=== PATIENT | female | born 1975 | race Caucasian/White ===

== ENCOUNTER 2021-10-18 16:46 | Emergency (ER) | payer OTHER, SELFPAY ==
[2021-10-18 17:00] VITALS: BP 112/85; PULSE 84; RESP 18; TEMP 36.7; O2SAT 97
--- NOTE | 2021-10-18 17:22 | ED.SKABFB ---
HPI - Skin/Abscess/Foreign Bdy General Chief complaint: Skin/Abscess/Foreign Body Stated complaint: Blister on buttox Time Seen by Provider: 10/18/21 17:20 Source: patient, RN notes reviewed and old records reviewed Mode of arrival: ambulatory Limitations: no limitations History of Present Illness HPI narrative: 45 year old female who presents to [facility] care with complaints of boil or abscess to the right buttock for the past month. Patient states that she got a new adjustable bed and she got this area to her tight buttocks which was red initially then it proceeded to look like a blister. Patient now has area to her right buttock which is 4cm X 2.5cm oval with approximately 0.5 to 1cm depth with eschar looking tissue to most of wound with area at bottom of wound red with serosanguineous and yellowish drainage noted. Patient admits to picking on wound, has been covering wound with dry 4X4 gauze after cleansing with soap and water. Patient denies any known fevers chills or sweats.Patient states that she moved to [facility] from [facility] and does not have PCP in area. MD complaint: abscess/boil (right buttock) and other (now has progressed to 4cmX2.5cm wound of right buttock) Onset (ago): month(s) (1) Related Data Home Medications Medication Instructions Recorded Confirmed atorvastatin 10/18/21 ezetimibe mg 10/18/21 gabapentin 10/18/21 hydrochlorothiazide 10/18/21 hydroxychloroquine PO 10/18/21 levothyroxine 10/18/21 metoprolol succinate PO 10/18/21 quetiapine 10/18/21 quetiapine 10/18/21 tofacitinib [Xeljanz XR] mg PO 10/18/21 10/18/21 Allergies Allergy/AdvReac Type Severity Reaction Status Date / Time cephalexin Allergy Mild Other Verified 10/18/21 16:59 tramadol Allergy Mild Other Verified 10/18/21 16:59 Review of Systems Review of Systems: CONSTITUTIONAL: Denies fever, chills, or sweats. EYES: Denies visual changes, redness, or discharge. ENT: Denies rhinorrhea, congestion, sore throat, or otalgia. CARDIOVASCULAR: Denies chest pain, palpitations, or edema. RESPIRATORY: Denies cough or dyspnea. GASTROINTESTINAL: Denies abdominal pain, nausea, vomiting, or diarrhea. GENITOURINARY: Denies dysuria or hematuria. SKIN: Denies rash or itching.positive for wound to right buttock for past month with increase in size depth and is painful. MUSCULOSKELETAL: Denies back pain, joint pain, or myalgia. NEUROLOGIC: Denies headache, numbness, or weakness. PSYCHIATRIC: Denies anxiety or depression. All systems reviewed & are unremarkable except as noted in HPI and below PMFSH Past Medical History Medical History (Updated 10/20/21 @ 17:27 by Merissa Viveros NP) Arthritis Hypertension Hypothyroidism Neuropathy Open right femoral fracture ORIF Pilonidal cyst with abscess Rheumatoid arthritis Surgical History Surgical History (Updated 10/20/21 @ 17:18 by Merissa Viveros NP) H/O dilation and curettage H/O splenectomy History of hysterectomy Hx of cholecystectomy Previous section Family History Family History (Updated 10/20/21 @ 17:15 by Merissa Viveros NP) Father Hypertension Sibling Hypertension Heart disease Grandparent Cerebrovascular accident Arthritis Alzheimers disease Other Carcinoma of colon Social History Social History (Updated 10/20/21 @ 17:16 by Merissa Viveros NP) Smoking status: Former smoker Tobacco type: cigarettes Alcohol intake: current Alcohol use details: rare social Substance use: never Living arrangements: with family Gender identity (if verbalized by the patient): Female Comments At time of signature, agree with nursing past medical, surgical, social and family history. There is no relevant family history pertinent to the presenting complaint Exam Narrative: GENERAL: Well-appearing, well-nourished, obese and in no acute distress. HEAD: Normocephalic, atraumatic. EYES: PERRLA and EOMI. ENT: Nares clear, no rhinorrhe
== END 2021-10-18 18:30 | disposition home or self-care (01) ==
PROVIDERS: Emergency Provider Registered Nurse
DX: S31.819A Unspecified open wound of right buttock, initial encounter (principal); X58.XXXA Exposure to other specified factors, initial encounter; M19.90 Unspecified osteoarthritis, unspecified site; I10 Essential (primary) hypertension; E03.9 Hypothyroidism, unspecified; G62.9 Polyneuropathy, unspecified; M06.9 Rheumatoid arthritis, unspecified; Z87.891 Personal history of nicotine dependence
CPT/HCPCS: 99213; G0463

== ENCOUNTER 2021-11-15 08:12 | Outpatient (CLI) | payer OTHER, SELFPAY ==
--- NOTE | ~2021-11-15 | US_ITS ---
EXAMINATION: US right upper quadrant DATE: 11/15/2021 08:34 INDICATION: Liver nodule TECHNIQUE: Multiple grayscale and Doppler ultrasound images of the abdomen were obtained. COMPARISON: None available FINDINGS: Bowel gas obscures visualization of the pancreas. The visualized portions of the pancreas a re unremarkable. There is a questionable 1.5 x 1.2 cm hyperechoic area of the left hepatic lobe howev er the area is difficult to reproduce on subsequent images. Evaluation is somewhat limited by the pat ient's body habitus. No surface nodularity. Normal hepatopetal flow in the main portal vein. The gal lbladder is surgically absent. The normal postcholecystectomy common bile duct measures 8 mm. IMPRESSION: 1. Questionable 1.5 cm liver lesion, difficult to reproduce. Consider further evaluation by CT or MRI without and with contrast. Reviewed, dictated and finalized at location A. ER MACHINE HAND IMPRESSION: 1. Questionable 1.5 cm liver lesion, difficult to reproduce. Consider further e valuation by CT or MRI without and with contrast.
== END 2021-11-15 08:13 | disposition home or self-care (01) ==
LOC: ANHIMG 08:15
PROVIDERS: Visit Provider Pediatrics Pediatric Rheumatology
DX: K76.89 Other specified diseases of liver (principal)
CPT/HCPCS: 76705

== ENCOUNTER 2022-02-03 07:34 | Outpatient (RCR) | payer OTHER, SELFPAY ==
[2021-11-11 12:09] VITALS: BMI 53.2
--- NOTE | 2021-11-11 15:27 | P.PNWOUND_ITS ---
Wound Care Note Date/Time: 11/11/21 15:27 History: Patient presented to my office 2 weeks ago with nonhealing ulcer on her right buttocks. Wound was debrided in the office and she has been applying silver gel daily since then. She now follow-up with the wound clinic for further treatment. Patient states that wound has continued to have a lot of foul-smelling drainage. She is having to change the bandage multiple times a day. She does still have a lot of tenderness in this region as well. Wound approximation: No Wound width: 2.8cm Wound length: 4cm Wound depth: 3cm Drainage: Serosanguineous Surrounding tissue appearance: healthy Percentage granulation tissue: 10% Assessment and Plan Assessment and plan (1) Wound of right buttock: Qualifiers: Encounter type: initial encounter Qualified Code(s): S31.819A - Unspecified open wound of right buttock, initial encounter Code(s): S31.819A - Unspecified open wound of right buttock, initial encounter Status: Acute Assessment and Plan: * Patient was given instructions on applying Santyl to wound bed daily. Will make arrangements for wound products. Will have patient follow-up in wound clinic in 4 weeks to reassess. (2) BMI 50.0-59.9, adult: Code(s): Z68.43 - Body mass index [BMI] 50.0-59.9, adult Status: Acute Review of Systems Review of Systems: All systems reviewed & are unremarkable except as noted in HPI and below Exam Skin: Other: right buttock wound remains open with a significant amount of exudate and necrotic subcutaneous fat within the wound bed. Surrounding skin appears healthy and viable. No fluctuance her purulence drainage.
--- NOTE | 2022-01-20 11:09 | PCWOUND ---
WOCN NOTE patient did not show up for scheduled appointment, no call was made to cancel or reschedule. Dr. Jerez aware of no-show.
--- NOTE | 2022-01-24 15:15 | PM.PNGS ---
Progress Note: A&P Assessment and Plan (1) Wound of right buttock: Qualifiers: Encounter type: initial encounter Qualified Code(s): S31.819A - Unspecified open wound of right buttock, initial encounter Code(s): S31.819A - Unspecified open wound of right buttock, initial encounter Status: Acute Assessment and Plan: Will continue daily dressing changes with Silver gel and 1/2 NuGauze. Wound should continue to improve with careful attentive wound care. (2) BMI 50.0-59.9, adult: Code(s): Z68.43 - Body mass index [BMI] 50.0-59.9, adult Status: Acute (3) Hypertension: Qualifiers: Hypertension type: primary hypertension Qualified Code(s): I10 - Essential (primary) hypertension Code(s): I10 - Essential (primary) hypertension Status: Acute (4) DM2 (diabetes mellitus, type 2): Qualifiers: Diabetes mellitus senior care insulin use: without medical terminologist use Diabetes mellitus complication status: with skin complications Diabetes mellitus complication detail: with other skin ulcer Qualified Code(s): E11.622 - Type 2 diabetes mellitus with other skin ulcer Code(s): E11.9 - Type 2 diabetes mellitus without complications Status: Acute Assessment and Plan: Glucose control will help with wound healing. Subjective Subjective Date/Time Seen: 12/16/2021 at 10:30 AM Interval history: Patient reports continued drainage from buttock wound. She has been applying daily dressings. Still has some pain in the area. She was also recently diagnosed with type 2 DM and has been treating this with dietary modifications. Review of Systems Review of Systems: All systems reviewed & are unremarkable except as noted in HPI and below Exam Skin: Other: 2.5 x 3.3 cm right buttock wound, about 7.5cm deep. Healthy granulation tissue with scant serosanguinous drainage. Objective Data Meds/Results Medications: Active Medications Generic Name Dose Route Start Last Admin Trade Name Freq PRN Reason Stop Dose Admin Silver Nitrate 1 applic 12/16/21 11:05 Silvergel (Elta) 45 Ml TOPICAL 03/16/22 23:55 PRN PRN Wound Care
--- NOTE | 2022-01-27 15:45 | WPDWOUNDNOTE ---
Wound Care Note Date/Time: 01/27/22 15:45 History: This is a 46-year-old woman who presented with a nonhealing wound on her right buttock. She underwent debridement of the necrotic surface in my office on 10/29/2021. She has been seeing Wound Care for follow-up since then. She has a history of tobacco use and was recently also diagnosed with diabetes. She also has a history of splenectomy and states that she gets other infections easily due to this. Wound history: Patient has been performing daily packing changes with plain Nu Gauze and silver gel. Due to the location of her wound, it is very difficult for her to adequately pack the wound. She has been unable to get other family or close friends to help with the wound care. Wound approximation: No Wound width: 1 cm Wound length: 0.4 cm Wound depth: 15 cm Drainage: Blood-tinged yellow Surrounding tissue appearance: Healthy Dressings: Quarter-inch Nu Gauze packing with silver gel Assessment and Plan Assessment and plan (1) Wound of right buttock: Qualifiers: Encounter type: initial encounter Qualified Code(s): S31.819A - Unspecified open wound of right buttock, initial encounter Code(s): S31.819A - Unspecified open wound of right buttock, initial encounter Status: Acute Assessment and Plan: Continue daily packing changes. I talked to patient about other ways she can have help to pack the wound adequately, but she does not feel that any family or friends would be able to help. The wound appears nearly closed at the surface, but there is still some drainage coming from deeper within the wound and the wound still does appear to track very deeply. Will have patient come to the Wound Care Clinic weekly now to continue closely observing this area and helping with packing changes. We will also consider culturing the wound drainage next week if there is any significant drainage remaining. If the wound closes completely at the surface but still continues with drainage buildup, she may need re-incision of the area and might even need to consider wound VAC placement or other treatment to help this close completely. Will follow-up with patient in wound clinic in 2-3 weeks. (2) DM2 (diabetes mellitus, type 2): Qualifiers: Diabetes mellitus continuous churn buttermaker insulin use: without halfway use Diabetes mellitus complication status: with skin complications Diabetes mellitus complication detail: with other skin ulcer Qualified Code(s): E11.622 - Type 2 diabetes mellitus with other skin ulcer Code(s): E11.9 - Type 2 diabetes mellitus without complications Status: Acute (3) BMI 50.0-59.9, adult: Code(s): Z68.43 - Body mass index [BMI] 50.0-59.9, adult Status: Acute (4) Hypertension: Qualifiers: Hypertension type: primary hypertension Qualified Code(s): I10 - Essential (primary) hypertension Code(s): I10 - Essential (primary) hypertension Status: Acute Review of Systems Review of Systems: All systems reviewed & are unremarkable except as noted in HPI and below Exam Skin: Other: Wound appears to have healthy granulation tissue and skin appears healing well. Most of the drainage appears like liquified fat. There is no foul smell to the wound.
== END 2022-02-09 23:59 | disposition home or self-care (01) ==
LOC: ANHWOC 07:34
PROVIDERS: Visit Provider Surgery
DX: S31.819D Unspecified open wound of right buttock, subsequent encounter (principal)
CPT/HCPCS: 87070; 87147; 87186; 87205; 99212; G0463

== ENCOUNTER 2022-02-14 09:29 | Outpatient (RCR) | payer OTHER, SELFPAY ==
[2022-02-10 00:04] VITALS: BMI 53.2
--- NOTE | 2022-02-20 10:53 | PCWOUND ---
WOCN NOTE patient called to cancel her appointment due to her being called into work. Patient states the wound is scab covered, no drainage noted and that the pressure she had felt at the top of her buttocks is gone. Patient to let me know what her next days off are to be. Informed Nguyen Root MA for Dr. Vazquez of cancellation and that wound is closed. Per Dr ANTOINE states no follow up needs to be scheduled at this time, patient to contact the wound center for appointment is wound reopens.
== END 2022-05-05 08:28 | disposition home or self-care (01) ==
LOC: ANHWOC 09:29
PROVIDERS: Visit Provider Surgery
DX: S31.819D Unspecified open wound of right buttock, subsequent encounter (principal)
CPT/HCPCS: 99212; A9270; G0463

== ENCOUNTER 2022-03-23 14:57 | Emergency (ER) | payer OTHER, SELFPAY ==
--- NOTE | 2022-03-23 14:58 | ED.DENTAL ---
HPI - Dental/Oral General Chief complaint: Dental/Oral Stated complaint: tooth pain Time Seen by Provider: 03/23/22 14:57 Source: patient Mode of arrival: ambulatory Limitations: no limitations History of Present Illness HPI Narrative: Ms. Alexander is a 46-year-old female patient presenting to the clinic today with complaints of dental pain x 1 day. She reports he has a broken tooth #18 that is very painful with redness and swelling and has a knot to her left lower jaw. Pain and swelling is radiating up into her left ear and into her neck. Related Data Home Medications Medication Instructions Recorded Confirmed atorvastatin 10/18/21 10/29/21 ezetimibe mg 10/18/21 10/29/21 gabapentin 10/18/21 10/29/21 hydrochlorothiazide 10/18/21 10/29/21 hydroxychloroquine PO 10/18/21 10/29/21 levothyroxine 10/18/21 10/29/21 metoprolol succinate PO 10/18/21 10/29/21 quetiapine 10/18/21 10/29/21 quetiapine 10/18/21 10/29/21 aspirin 81 mg capsule 81 mg PO DAILY 10/29/21 10/29/21 Allergies Allergy/AdvReac Type Severity Reaction Status Date / Time cephalexin Allergy Mild Other Verified 11/11/21 12:30 tramadol Allergy Mild Other Verified 11/11/21 12:30 Review of Systems Review of Systems: Pertinent positives per HPI. Patient denies any fever, chills, rash, headache, visual changes, dizziness, cough, runny nose, sore throat, shortness of breath, chest pain, palpitations, nausea, vomiting, diarrhea, constipation, abdominal pain, or any urinary issues. [facility] Past Medical History Medical History Arthritis Hypertension Hypothyroidism Neuropathy Open right femoral fracture ORIF Pilonidal cyst with abscess Rheumatoid arthritis Surgical History Surgical History H/O dilation and curettage H/O splenectomy History of hysterectomy Hx of cholecystectomy Previous section Family History Family History Father Hypertension Sibling Hypertension Heart disease Grandparent Cerebrovascular accident Arthritis Alzheimers disease Other Carcinoma of colon Social History Social History Smoking status: Former smoker Tobacco type: cigarettes Alcohol intake: current Alcohol use details: rare social Substance use: never Gender identity (if verbalized by the patient): Female Comments At the time of my signature, I reviewed and agree with the nursing past medical, surgical, social, and family history. There is no relevant family history pertinent to the patient complaint. Exam Narrative: General: Well-developed, well nourished, in no apparent distress Head: Normocephalic, atraumatic Eyes: Pupils equally round and reactive to light bilaterally, EOM intact, sclera and conjunctive clear, no discharge, lids normal Ears: TMs intact and clear, ear canals clear, no drainage, grossly hearing normal. Nose: Nares patent, no discharge, no inflammation, no sinus tenderness. Mouth: Oropharynx without lesions or masses, poor dentition, MMM. #18 broken with redness and erythema to the gums, palpable possible abscess without fluctuance to the left jaw Neck: Supple, trachea midline, no enlargement of anterior or posterior cervical nodes, no thyroid masses or goiter palpable. Cardio: Regular rate and rhythm, s1 and s2 normal, no murmur appreciated. Resp: Clear to auscultation bilaterally anteriorly and posteriorly, no rhonchi, rales, wheezing or rubs Course Course Emergency Course: Portions of this record may have been created with voice recognition software. Level of Care: [facility] Visit Vital Signs Vital signs: Vital signs reviewed MDM - Dental/Oral MDM Narrative Medical decision making narrative: At the time of visit patient is resting comfortably on the exam ta
[2022-03-23 15:05] VITALS: BP 113/63; PULSE 82; RESP 16; TEMP 36.4; O2SAT 99
[2022-03-23 15:06] VITALS: BP 113/63; PULSE 82; RESP 16; TEMP 36.4; O2SAT 99
== END 2022-03-23 15:16 | disposition home or self-care (01) ==
PROVIDERS: Emergency Provider Nurse Practitioner Family
DX: K04.7 Periapical abscess without sinus (principal); Z87.891 Personal history of nicotine dependence; M19.90 Unspecified osteoarthritis, unspecified site; I10 Essential (primary) hypertension; E03.9 Hypothyroidism, unspecified; M06.9 Rheumatoid arthritis, unspecified; G62.9 Polyneuropathy, unspecified
CPT/HCPCS: 99213; G0463

== ENCOUNTER 2022-07-05 14:30 | Emergency (ER) | payer OTHER, SELFPAY ==
[2022-07-05 14:39] VITALS: BP 138/87; PULSE 91; RESP 20; TEMP 37.2; O2SAT 94
--- NOTE | 2022-07-05 15:45 | ED.URI ---
HPI - URI/Sore Throat General Chief Complaint: Upper Respiratory Infection Stated Complaint: COVID Time Seen by Provider: 07/05/22 15:34 Source: patient Mode of arrival: ambulatory Limitations: no limitations History of Present Illness HPI Narrative: Patient presents today complaining of cough and congestion for the past couple of days. She was exposed last week to COVID-19 for 3 days. She tested positive today and comes into [facility] today requesting Paxlovid prescription. Patient has history of lupus and is asplenic. She has been vaccinated and boosted against COVID-19. Denies history of asthma or COPD. She smokes 1 pack/day.Denies chest pain or shortness of breath currently. Related Data Home Medications Medication Instructions Recorded Confirmed atorvastatin 40 mg tablet 40 mg PO DAILY 10/18/21 07/05/22 ezetimibe 10 mg tablet 10 mg PO DAILY 10/18/21 07/05/22 gabapentin 300 mg capsule 300 mg PO DIRECTED 10/18/21 07/05/22 hydrochlorothiazide 50 mg tablet 50 mg PO DIRECTED 10/18/21 07/05/22 hydroxychloroquine 200 mg tablet 200 mg PO DIRECTED 10/18/21 07/05/22 levothyroxine 300 mcg tablet 300 mcg PO DAILY 10/18/21 07/05/22 metoprolol succinate 50 mg 50 mg PO DAILY 10/18/21 07/05/22 tablet,extended release 24 hr quetiapine 100 mg tablet 100 mg PO DAILY 10/18/21 07/05/22 quetiapine 400 mg tablet 400 mg PO DAILY 10/18/21 07/05/22 belimumab 200 mg/mL subcutaneous 200 mg subcut DIRECTED 07/05/22 07/05/22 auto-injector (Benlysta) diclofenac sodium 75 mg 75 mg PO DIRECTED 07/05/22 07/05/22 tablet,delayed release Allergies Allergy/AdvReac Type Severity Reaction Status Date / Time cephalexin Allergy Mild Other Verified 11/11/21 12:30 tramadol Allergy Mild Other Verified 11/11/21 12:30 Review of Systems Review of Systems: CONSTITUTIONAL: Denies body aches, fever, chills, or sweats. EYES: Denies visual changes, redness, or discharge. ENT: Denies rhinorrhea, sore throat, or otalgia.+Congestion CARDIOVASCULAR: Denies chest pain, palpitations, or edema. RESPIRATORY: Denies dyspnea.+Cough GASTROINTESTINAL: Denies abdominal pain, nausea, vomiting, or diarrhea. GENITOURINARY: Denies dysuria or hematuria. SKIN: Denies rash, itching, or wounds. MUSCULOSKELETAL: Denies back pain, joint pain, or myalgia. NEUROLOGIC: Denies headache, numbness, tingling, or weakness. PSYCH: Denies depression or anxiety. [facility] Past Medical History Medical History Arthritis Hypertension Hypothyroidism Neuropathy Open right femoral fracture ORIF Pilonidal cyst with abscess Rheumatoid arthritis Surgical History Surgical History H/O dilation and curettage H/O splenectomy History of hysterectomy Hx of cholecystectomy Previous section Family History Family History Father Hypertension Sibling Hypertension Heart disease Grandparent Cerebrovascular accident Arthritis Alzheimers disease Other Carcinoma of colon Social History Social History Smoking status: Former smoker Tobacco type: cigarettes Alcohol intake: current Alcohol use details: rare social Substance use: never Gender identity (if verbalized by the patient): Female Comments At time of signature, I have reviewed and agree with nursing past medical, surgical, social and family history unless otherwise noted. Please see nursing chart for further information. There is no relevant family history pertinent to the presenting complaint Exam Narrative: GENERAL: Well-appearing, well-nourished, and in no acute distress. HEAD: Normocephalic, atraumatic. EYES: EOMI. No redness or drainage. Conjunctivae normal. ENT: Mucous membranes pink and moist. Nares Congested. No rhinorrhea. TMs ainsley
== END 2022-07-05 15:55 | disposition home or self-care (01) ==
PROVIDERS: Emergency Provider Nurse Practitioner
DX: U07.1 COVID-19 (principal); Z87.891 Personal history of nicotine dependence; M19.90 Unspecified osteoarthritis, unspecified site; I10 Essential (primary) hypertension; E03.9 Hypothyroidism, unspecified; G62.9 Polyneuropathy, unspecified; M06.9 Rheumatoid arthritis, unspecified
CPT/HCPCS: 99213; G0463

== ENCOUNTER 2023-03-24 14:38 | Emergency (ER) | payer OTHER, SELFPAY ==
--- NOTE | ~2023-03-24 | XR_ITS ---
EXAMINATION: XR knee RT min 4V DATE: 03/24/2023 15:14 INDICATION: Right knee pain TECHNIQUE: Four views of the right knee were obtained. COMPARISON: None. FINDINGS: There is partially imaged internal stabilization hardware of the right femur. Alignment is normal. No acute fracture or osteochondral lesion. There is mild tricompartmental osteoarthritis david acterized by tiny marginal osteophytes. There is a tiny knee joint effusion. Soft tissues are unremar kable. IMPRESSION: 1. Tiny knee joint effusion without acute osseous abnormality. Reviewed, dictated and finalized at location L.
--- NOTE | 2023-03-24 14:41 | ED.GENADULT ---
HPI - General Adult General Chief complaint: Extremity Injury, Lower Stated complaint: Right Knee Pain Time Seen by Provider: 03/24/23 14:52 Source: patient, RN notes reviewed and old records reviewed Mode of arrival: ambulatory Limitations: no limitations History of Present Illness HPI narrative: 47-year-old female presents to the [facility] with right knee pain for 3 days. Reports decreased range of motion. Denies any redness or swelling. Pain with walking HX of a richard placed in the femur in 1997 Related Data Home Medications Medication Instructions Recorded Confirmed atorvastatin 40 mg tablet 40 mg PO DAILY 10/18/21 07/05/22 ezetimibe 10 mg tablet 10 mg PO DAILY 10/18/21 07/05/22 gabapentin 300 mg capsule 300 mg PO DIRECTED 10/18/21 07/05/22 hydrochlorothiazide 50 mg tablet 50 mg PO DIRECTED 10/18/21 07/05/22 hydroxychloroquine 200 mg tablet 200 mg PO DIRECTED 10/18/21 07/05/22 levothyroxine 300 mcg tablet 300 mcg PO DAILY 10/18/21 07/05/22 metoprolol succinate 50 mg 50 mg PO DAILY 10/18/21 07/05/22 tablet,extended release 24 hr quetiapine 100 mg tablet 100 mg PO DAILY 10/18/21 07/05/22 quetiapine 400 mg tablet 400 mg PO DAILY 10/18/21 07/05/22 belimumab 200 mg/mL subcutaneous 200 mg subcut DIRECTED 07/05/22 07/05/22 auto-injector (Benlysta) diclofenac sodium 75 mg 75 mg PO DIRECTED 07/05/22 07/05/22 tablet,delayed release oxybutynin chloride 5 mg mg PO 03/24/23 tablet,extended release 24 hr topiramate 100 mg tablet mg 03/24/23 Allergies Allergy/AdvReac Type Severity Reaction Status Date / Time cephalexin Allergy Mild Other Verified 03/24/23 14:39 tramadol Allergy Mild Other Verified 03/24/23 14:39 Review of Systems Review of Systems: All systems reviewed & are unremarkable except as noted in HPI and below Constitutional: Constitutional: Reports no additional constitutional complaints Eyes: Eyes: Reports no additional eye complaints ENT: Reports system reviewed and no additional complaints, except as documented Cardiovascular: Cardiovascular: Reports no additional cardiovascular complaints, Denies chest pain and Denies dyspnea Respiratory: Respiratory: Reports no additional respiratory complaints, Denies chest congestion, Denies cough and Denies dyspnea Gastrointestinal: Gastrointestinal: Reports no additional gastrointestinal complaints, Denies abdominal pain, Denies nausea and Denies vomiting Musculoskeletal: Musculoskeletal: Reports as per HPI and Reports arthralgias (Right knee) Integumentary/Breasts: Skin/Breast: Reports system reviewed and no additional complaints, except as docu Neurologic: Reports system reviewed and no additional complaints, except as documented Psychiatric: Psychiatric: Reports no additional psychiatric complaints Allergic/Immunologic: Allergic/Immunologic: Reports no additional allergic/immunologic complaints PMFSH Past Medical History Medical History Arthritis Hypertension Hypothyroidism Neuropathy Open right femoral fracture ORIF Pilonidal cyst with abscess Rheumatoid arthritis Surgical History Surgical History H/O dilation and curettage H/O splenectomy History of hysterectomy Hx of cholecystectomy Previous section Family History Family History Father Hypertension Sibling Hypertension Heart disease Grandparent Cerebrovascular accident Arthritis Alzheimers disease Other Carcinoma of colon Social History Social History Smoking status: Former smoker Tobacco type: cigarettes Alcohol intake: current Alcohol use details: rare social Substance use: never Living arrangements: with family Gender identity (if verbalized by the patient): Female Comments At the time of my signature, I
[2023-03-24 14:49] VITALS: BP 150/97; PULSE 87; RESP 14; TEMP 37.5; O2SAT 100
== END 2023-03-24 15:56 | disposition home or self-care (01) ==
PROVIDERS: Emergency Provider Nurse Practitioner
DX: M17.11 Unilateral primary osteoarthritis, right knee (principal); M25.461 Effusion, right knee; Z87.891 Personal history of nicotine dependence; I10 Essential (primary) hypertension; E03.9 Hypothyroidism, unspecified; G62.9 Polyneuropathy, unspecified; M06.9 Rheumatoid arthritis, unspecified
CPT/HCPCS: 73564; 99213; G0463

== ENCOUNTER 2023-04-10 14:18 | Outpatient (CLI) | payer OTHER, SELFPAY ==
--- NOTE | ~2023-04-10 | MR_ITS ---
EXAMINATION: MR knee RT wo con DATE: 04/10/2023 16:01 INDICATION: Unspecified osteoarthritis at the right knee TECHNIQUE: Magnetic resonance imaging (MRI) of the right knee was performed without intravenous contr ast. Sequences included coronal PD-weighted FSE, coronal PD-weighted FS FSE, sagittal T2-weighted FS E, sagittal PD-weighted FS FSE, sagittal fluid sensitive FSE STIR and axial PD weighted fat saturated FSE. COMPARISON: Right knee radiographs dated 03/24/2023 FINDINGS: Osseous/other: There is prominent metallic magnetic field artifact surrounding a retrograde intramedullary richard and i nterlocking transverse condylar screw in the distal femur for fixation of an old healed distal fibula r fracture which is better appreciated on the prior radiographs. This markedly limits evaluation of p ortions of the knee which will be detailed below. Normal alignment is normal. Where not obscured the marrow signal is normal with no fracture or pathologic marrow replacing process. Medial compartment: There appears to be a schneider near full-thickness radial tear at the body of the medial meniscus. Ther e is suggestion of partial thickness cartilage loss along the central weightbearing medial femoral co ndyle. Portions of the cartilage at the lateral side of the anterior weightbearing medial femoral con dyle obscured by artifact. Lateral compartment: Lateral meniscus is normal. Articular cartilage is normal. Portions of the cartilage at the medial as pect of the anterior weightbearing lateral femoral condyle are obscured by artifact. Patellofemoral compartment: There is suggestion of some partial-thickness chondral fissuring along the medial side of the medial patellar facet. Portions of the cartilage are obscured including along the patellar apical ridge and involving essentially the entire medial trochlea and portions of the trochlear groove. Ligaments and tendons: Visualized portion of the posterior cruciate ligament appears normal with limited visualization of th e femoral side of the ligament. The anterior cruciate ligament is completely obscured. The medial col lateral ligament and fibular collateral ligament complex are normal. The extensor mechanism is normal . The visualized medial and lateral hamstring tendons as well as the iliotibial band are normal. Fluid: Small to moderate-sized knee joint effusion at the suprapatellar pouch. IMPRESSION: 1. Significantly limited evaluation due to prominent metallic magnetic field artifact associated with prior retrograde intramedullary richard fixation in the distal femur. The most severe at the intercondyl ar notch with obscuration of the entire region of the anterior cruciate ligament and of the cartilage at the medial trochlea and trochlear groove and to lesser degree at the patellar apical ridge and in volving the cartilage along side the intercondylar large at the anterior aspect of the medial and lat eral compartments. 2.Radial tear at the body of the medial meniscus. 3. Mild osteoarthritis with small regions of moderate grade chondromalacia along the central weightbe aring medial femoral condyle and the medial patellar facet. 4. Small to moderate-sized knee joint effusion. Reviewed, dictated and finalized at location A. IMPRESSION: 1. Significantly limited evaluation due to prominent metallic magnetic field ar tifact associated with prior retrograde intramedullary richard fixation in the dist al femur. The most severe at the intercondylar notch with obscuration of the en tire region of the anterior cruciate ligament and of the cartilage at the media l trochlea and trochlear groove and to lesser degree at the patellar apical rid ge and involving the cartilage along side the intercondylar large at the anteri or aspect of the medial and lateral compartme
== END 2023-04-10 14:19 | disposition home or self-care (01) ==
PROVIDERS: PCP Family Medicine; Visit Provider Nurse Practitioner Family
DX: M19.90 Unspecified osteoarthritis, unspecified site (principal); M25.461 Effusion, right knee
CPT/HCPCS: 73721

== ENCOUNTER 2023-05-01 12:32 | Outpatient (CLI) | payer OTHER, SELFPAY ==
[2023-05-01 18:36] LABS: Hemoglobin A1C 6.4 % (<5.7)
[2023-05-01 19:00] LABS: Thyroid Stimulating Hormone 0.436 uIU/mL (0.465-4.680)
== END 2023-05-01 12:33 | disposition home or self-care (01) ==
LOC: ANHGOSHLAB 12:34
PROVIDERS: PCP Family Medicine; Visit Provider Nurse Practitioner Family
DX: E11.9 Type 2 diabetes mellitus without complications (principal); E03.9 Hypothyroidism, unspecified
CPT/HCPCS: 36415; 83036; 84443

== ENCOUNTER 2023-05-07 14:06 | Outpatient (CLI) | payer OTHER, SELFPAY ==
--- NOTE | ~2023-05-07 | US_ITS ---
EXAMINATION: US thyroid DATE: 05/07/2023 14:29 INDICATION: Hypothyroidism, unspecified. TECHNIQUE: Multiple ultrasound images of the thyroid were obtained. COMPARISON: None. FINDINGS: The right thyroid lobe measures 4.6 x 2.5 x 2.2 cm. The left thyroid lobe measures 4.1 x 2.6 x 2.3 c m. The thyroid is diffusely hypoechoic and heterogeneous. Vascularity is normal. No discrete nodule. IMPRESSION: 1. Heterogeneous thyroid, likely chronic lymphocytic (Henna) thyroiditis. Reviewed, dictated and finalized at location A.
== END 2023-05-07 14:07 | disposition home or self-care (01) ==
PROVIDERS: PCP Family Medicine; Visit Provider Nurse Practitioner Family
DX: E03.9 Hypothyroidism, unspecified (principal)
CPT/HCPCS: 76536

== ENCOUNTER 2023-06-14 12:42 | Emergency (ER) | payer OTHER, SELFPAY ==
--- NOTE | 2023-06-14 12:50 | ED.DENTAL ---
HPI - Dental/Oral General Chief complaint: Dental/Oral Stated complaint: right side of face swollen Time Seen by Provider: 06/14/23 12:50 Source: patient Mode of arrival: ambulatory Limitations: no limitations History of Present Illness HPI Narrative: Patient is a 47-year-old female who presents with right cheek swelling and dental pain. Patient states dental pain started Thursday evening and patient has been having increased swelling since then. Patient states pain on tooth has now subsided but is now having pain and tenderness to cheek. Denies any bitter taste in mouth, difficulty swallowing or throat swelling. Denies any fever. Does have a dentist but has not called them. States she will call them on Thursday Related Data Home Medications Medication Instructions Recorded Confirmed atorvastatin 40 mg tablet 40 mg PO DAILY 10/18/21 05/18/23 hydroxychloroquine 200 mg tablet 200 mg PO DIRECTED 10/18/21 05/18/23 metoprolol succinate 50 mg 50 mg PO DAILY 10/18/21 05/18/23 tablet,extended release 24 hr oxybutynin chloride 5 mg mg PO 03/24/23 05/18/23 tablet,extended release 24 hr Allergies Allergy/AdvReac Type Severity Reaction Status Date / Time cephalexin Allergy Mild Vomiting Verified 06/14/23 12:58 tramadol Allergy Mild Other Verified 06/14/23 12:58 Review of Systems Review of Systems: All systems reviewed & are unremarkable except as noted in HPI and below Constitutional: Constitutional: Denies body ache(s), Denies fever(s), Denies headache(s), Denies malaise and Denies weakness Eyes: Eyes: Denies loss of vision ENT: Denies otalgia, Reports facial pain, Denies headache(s), Denies nasal discharge, Denies sinus pain and Denies sore throat Cardiovascular: Cardiovascular: Denies chest pain, Denies irregular heart rhythm and Denies dyspnea Respiratory: Respiratory: Denies dyspnea Gastrointestinal: Gastrointestinal: Denies abdominal pain, Denies melena, Denies hematochezia, Denies diarrhea, Denies nausea and Denies vomiting Musculoskeletal: Musculoskeletal: Denies back pain, Denies myalgias and Denies arthralgias Integumentary/Breasts: Skin/Breast: Denies pruritus and Denies rash Neurologic: Denies headache(s), Denies loss of vision and Denies weakness Psychiatric: Psychiatric: Reports no additional psychiatric complaints [facility] Past Medical History Medical History Arthritis Hypertension Hypothyroidism Neuropathy Open right femoral fracture ORIF Pilonidal cyst with abscess Rheumatoid arthritis Sjogrens syndrome Surgical History Surgical History H/O dilation and curettage H/O splenectomy History of dental surgery History of ERCP History of hysterectomy History of liver biopsy Hx of cholecystectomy Previous section Family History Family History Father Hypertension Sibling Hypertension Heart disease Grandparent Cerebrovascular accident Arthritis Alzheimers disease Other Carcinoma of colon Social History Social History Smoking packs per day: 0.5 Smoking cigarettes per day: 10.0 Smoking status: Current every day smoker Tobacco type: cigarettes Alcohol intake: never Substance use: never Lack of Transportation: No Lack of Food: Never True Current Housing: I Have Housing Concerned About Future Housing: No Difficulty Paying Gas/Electric Bills: No Difficulty Paying for Meds: No Currently Unemployed: YES Education: High School Diploma/GED Difficulty w/ Childcare or Family Care: No Living arrangements: with family Gender identity (if verbalized by the patient): Female Comments At time of signature, agree with nursing past medical, surgical, social and family history. There is no relevant family history pertinent to the pres
[2023-06-14 13:20] VITALS: BP 111/80; PULSE 76; RESP 16; TEMP 36.9; O2SAT 98
== END 2023-06-14 13:21 | disposition home or self-care (01) ==
PROVIDERS: Emergency Provider Nurse Practitioner Family; PCP Family Medicine
DX: K04.7 Periapical abscess without sinus (principal); F17.210 Nicotine dependence, cigarettes, uncomplicated; M19.90 Unspecified osteoarthritis, unspecified site; I10 Essential (primary) hypertension; E03.9 Hypothyroidism, unspecified; G62.9 Polyneuropathy, unspecified; M06.9 Rheumatoid arthritis, unspecified; M35.00 Sjogren syndrome, unspecified
CPT/HCPCS: 99213; G0463

== ENCOUNTER 2023-08-20 06:53 | Outpatient (CLI) | payer OTHER, SELFPAY ==
--- NOTE | ~2023-08-20 | CT_ITS ---
Non-contrast CT scan of the Abdomen and Pelvis Clinical indication: Abdominal pain Technique: 2.5 mm axial scans were obtained through the abdomen and pelvis without intravenous or or al contrast. Dose reduction technique was used on this scan by utilizing automated exposure control a nd iterative reconstruction technique. The dose-length product (DLP) was 1550.90 mGy-cm. Findings: Images through the lung bases reveal no abnormalities. There is no evidence of renal or ureteral calculi. The kidneys and the ureters are nondilated. The liver, pancreas, gallbladder, and adrenals appear normal. Patient is status post splenectomy. The re is no aortic aneurysm. There is no evidence of bowel obstruction. Small fat-containing umbilical hernia present. Normal appe ndix. Images through the pelvis were performed. There is no evidence of ascites or lymphadenopathy. Urinary bladder unremarkable. No adnexal mass evident. Impression: Small fat-containing umbilical hernia. Status post splenectomy. Reviewed, dictated and finalized at [facility]. Impression: Small fat-containing umbilical hernia. Status post splenectomy.
[2023-08-20 08:03] LABS: Basophils Absolute Auto 0.1 K/mm3 (0.0-0.1); Basophils Percent Auto 0.7 % (0.2-1.2); Eosinophils Absolute Auto 0.7 K/mm3 (0-0.3); Eosinophils Percent Auto 4.4 % (0-4.4); Hematocrit 46.2 % (37.0-47.0); Hemoglobin 14.8 g/dL (12.0-15.0); Immature Granulocyte Absolute 0.08 K/mm3 (0.00-0.031); Immature Granulocyte Percent A 0.5 % (0-0.5); Lymphocytes Absolute Auto 3.02 K/mm3 (0.9-3.2); Lymphocytes Percent Auto 17.9 % (18.3-44.2); Mean Corpuscular Volume 90.4 fl (80-100); Mean Platelet Volume 11.2 fl (7.4-10.4); Monocytes Percent Auto 5.7 % (2.6-8.5); Neutrophils Percent Auto 70.8 % (45.5-73.1); Platelet Count Result 357 k/mm3 (150-375); Red Blood Count 5.11 M/mm3 (4.2-5.4); Red Cell Distribution Width 18.2 % (11.5-14.5); White Blood Count 16.9 K/mm3 (4.5-10.0)
[2023-08-20 08:21] LABS: Alanine Aminotransferase 37 U/L (6-35); Albumin Level 4.1 g/dL (3.5-5.1); Alkaline Phosphatase 163 U/L (38-126); Anion Gap 5 mmol/L (8-16); Aspartate Amino Transferase 36 U/L (14-36); Bilirubin,Total 0.5 mg/dL (0.2-1.3); Blood Urea Nitrogen 16 mg/dL (7-17); Carbon Dioxide 30 mmol/L (22-30); Chloride 105 mmol/L (98-107); Estimated Glomerular Filt Rate > 60; Glucose 108 mg/dL (65-110); Potassium 4.1 mmol/L (3.4-5.0); Sodium 140 mmol/L (137-145)
== END 2023-08-20 06:54 | disposition home or self-care (01) ==
PROVIDERS: PCP Nurse Practitioner Family; Visit Provider Nurse Practitioner Family
DX: K43.9 Ventral hernia without obstruction or gangrene (principal); K62.5 Hemorrhage of anus and rectum; R10.9 Unspecified abdominal pain; K42.9 Umbilical hernia without obstruction or gangrene
CPT/HCPCS: 36415; 74176; 80053; 85025

== ENCOUNTER 2023-09-14 10:43 | Outpatient (RCR) | payer OTHER, SELFPAY | END 2023-11-13 13:42 | disposition home or self-care (01) | LOC: ANHDMC 10:43 | PROVIDERS: PCP Family Medicine; Visit Provider Surgery | DX: E11.9 Type 2 diabetes mellitus without complications (principal); E66.01 Morbid (severe) obesity due to excess calories; Z68.43 Body mass index [BMI] 50.0-59.9, adult; Z71.3 Dietary counseling and surveillance | CPT/HCPCS: G0108 ==

== ENCOUNTER 2023-09-22 01:42 | Day surgery (SDC) | payer OTHER, SELFPAY ==
[2023-09-22] MEDS: LACTATED RINGERS 1,000 ML 150 ML IV CONT (09:49)
[2023-09-22 09:50] VITALS: BP 132/77; PULSE 84; RESP 18; TEMP 36.5; O2SAT 100
--- NOTE | 2023-09-22 09:57 | WPDANESEPPF ---
Anes - Initial Pre Proc Eval Procedure: Operation Date: 09/22/23 13:15 Proposed Procedures p Colonoscopy - Kevin Cerda MD s [facility] Hemorrhoid Treatment - Kevin Cerda MD Date/Time: 09/22/23 09:57 Surgeon: Kevin Cerda MD Pre Op Diagnosis: Hemorrhage of anus/rectum,Hemorrhoids Patient Data Age: 47 Gender: F Height: 1.6 m Weight: 145.6 kg Last Vital Signs Temp 97.7 F 09/22/23 09:50 Pulse 84 09/22/23 09:50 Resp 18 09/22/23 09:50 BP 132/77 09/22/23 09:50 Pulse Ox 100 09/22/23 09:50 O2 Del Method Room Air 09/22/23 09:50 Allergies Allergy/AdvReac Type Severity Reaction Status Date / Time cephalexin AdvReac Mild Vomiting Verified 09/22/23 09:53 Home Medications Medication Instructions Recorded Confirmed Type hydroxychloroquine 200 mg tablet 200 mg PO DIRECTED 10/18/21 09/22/23 History semaglutide 14 mg tablet 14 mg PO DAILY #30 tabs 05/27/23 09/22/23 Rx atorvastatin 40 mg tablet 40 mg PO DAILY #90 tabs 06/17/23 09/22/23 Rx metoprolol succinate 50 mg 50 mg PO DAILY #90 tabs 06/17/23 09/22/23 Rx tablet,extended release 24 hr Chantix 1 mg tablet (varenicline) 1 mg PO BID #60 tabs 07/24/23 09/22/23 Rx levothyroxine 200 mcg tablet 200 mcg PO DAILY #90 tabs 07/27/23 09/22/23 Rx levothyroxine 75 mcg tablet 75 mcg PO DAILY #90 tabs 07/27/23 09/22/23 Rx gabapentin 600 mg tablet 1,200 mg PO TID #180 tabs 08/31/23 09/22/23 Rx tramadol 50 mg tablet 150 mg PO BID PRN pain #180 tabs 08/31/23 09/22/23 Rx quetiapine 400 mg tablet 400 mg PO DAILY #30 tabs 09/14/23 09/22/23 Rx duloxetine 60 mg capsule,delayed 120 mg PO DAILY #180 caps 09/15/23 09/22/23 Rx release (Cymbalta) hydrocodone 5 mg-acetaminophen 325 1 tablet PO Q8H PRN pain #40 tabs 09/15/23 09/22/23 Rx mg tablet Patient hx anesthesia problems: none Family hx anesthesia problems: none Results Review: All pre-operative results and documents have been reviewed as part of the pre-operative evaluation. PMFSH Past Medical History Medical History Arthritis Family hx of colon cancer History of blood transfusion Hypertension Hypothyroidism Internal hemorrhoid, bleeding Neuropathy Open right femoral fracture ORIF Pilonidal cyst with abscess Pre-diabetes Rheumatoid arthritis Sjogrens syndrome Skin tags, anus or rectum Tobacco use Surgical History Surgical History H/O dilation and curettage H/O splenectomy History of dental surgery History of ERCP History of hysterectomy History of liver biopsy Hx of cholecystectomy Previous section Family History Family History Father Hypertension Sibling Hypertension Heart disease Grandparent Cerebrovascular accident Arthritis Alzheimers disease Other Carcinoma of colon Social History Social History Smoking packs per day: 0.5 Smoking cigarettes per day: 10.0 Years smoked: 16 Smoking pack-years: 8.00 Smoking status: Current every day smoker Tobacco type: cigarettes Alcohol intake: never Substance use: never Substance use type: does not use Lack of Transportation: No Lack of Food: Never True Current Housing: I Have Housing Concerned About Future Housing: No Difficulty Paying Gas/Electric Bills: No Difficulty Paying for Meds: No Currently Unemployed: YES Education: High School Diploma/GED Difficulty w/ Childcare or Family Care: No Living arrangements: with family Gender identity (if verbalized by the patient): Female Spiritual care concerns: No Anes - Eval Final PreProcedure Day of Procedure 09/22/23 09:57 Patient weight: super morbidly obese Heart: regular rate and rhythm Lungs: clear to auscultation Airway: Mallampati scale class III Neurological: alert and oriented Last oral intake: >/= 8 hours
--- NOTE | 2023-09-22 10:02 | WPDHPUPDATE1 ---
History and Physical Update Update Date/Time: 09/22/23 10:02 History and Physical has been reviewed, including an updated exam of the patient. There are NO changes in the patient's condition. Risks, benefits, and alternatives have been discussed and questions answered. Patient agrees to proceed with procedure.
[2023-09-22 10:32] VITALS: BP 110/87; PULSE 83; RESP 19; O2SAT 100
--- NOTE | 2023-09-22 10:35 | W.PM.PROC2 ---
Procedure Note - Detailed Date of Procedure 09/22/23 Pre-op Diagnosis Hemorrhage of anus/rectum,Hemorrhoids Post-op Diagnosis Same Procedure Performed IRC of internal hemorrhoids Surgeon Kevin Cerda MD Anesthesia MAC (also had colonoscopy) Findings sking tags and grade II internal hemorrhoids Description of Procedure anoscope used, found skin tags and grade II internal hemorrhoids, no bleeding. Then advanced IRC probe, hemorrhoids treated 1.5 sec x6
[2023-09-22 10:42] VITALS: BP 128/88; PULSE 73; RESP 21; O2SAT 99
[2023-09-22 10:52] VITALS: BP 130/79; PULSE 71; RESP 14; O2SAT 99
== END 2023-09-22 11:06 | disposition home or self-care (01) ==
PROVIDERS: PCP Family Medicine; Visit Provider Internal Medicine Gastroenterology
PROC: 0DJD8ZZ Inspection of Lower Intestinal Tract, Via Natural or Artificial Opening Endoscopic (ICD-10-PCS; CPT 45378; principal; 2023-09-22 13:15)
PROC: (CPT 46930; 2023-09-22 13:15)
DX: Z12.11 Encounter for screening for malignant neoplasm of colon (principal); D12.3 Benign neoplasm of transverse colon; K64.8 Other hemorrhoids; K64.4 Residual hemorrhoidal skin tags; I10 Essential (primary) hypertension; E03.9 Hypothyroidism, unspecified; M35.00 Sjogren syndrome, unspecified; Z80.0 Family history of malignant neoplasm of digestive organs; G62.9 Polyneuropathy, unspecified; M06.9 Rheumatoid arthritis, unspecified; R73.03 Prediabetes; F17.210 Nicotine dependence, cigarettes, uncomplicated; E66.01 Morbid (severe) obesity due to excess calories; Z68.43 Body mass index [BMI] 50.0-59.9, adult; Z79.85 Long-term (current) use of injectable non-insulin antidiabetic drugs; Z79.891 Long term (current) use of opiate analgesic
CPT/HCPCS: 46930; 45380; 88305; J2704; J7120

== ENCOUNTER 2023-11-13 14:59 | Outpatient (CLI) | payer OTHER, SELFPAY ==
[2023-11-13 18:39] LABS: Basophils Absolute Auto 0.2 K/mm3 (0.0-0.1); Basophils Percent Auto 0.9 % (0.2-1.2); Eosinophils Absolute Auto 0.7 K/mm3 (0-0.3); Eosinophils Percent Auto 4.2 % (0-4.4); Hematocrit 45.1 % (37.0-47.0); Hemoglobin 14.3 g/dL (12.0-15.0); Immature Granulocyte Absolute 0.07 K/mm3 (0.00-0.031); Immature Granulocyte Percent A 0.4 % (0-0.5); Lymphocytes Absolute Auto 4.84 K/mm3 (0.9-3.2); Mean Corpuscular HGB Conc 31.7 g/dl (32-36); Mean Corpuscular Hemoglobin 29.7 pg (26-34); Mean Corpuscular Volume 93.6 fl (80-100); Mean Platelet Volume 11.8 fl (7.4-10.4); Monocytes Absolute Auto 1.1 K/mm3 (0.1-0.6); Monocytes Percent Auto 6.9 % (2.6-8.5); Neutrophils Absolute Auto 9.3 K/mm3 (1.3-6.7); Neutrophils Percent Auto 57.6 % (45.5-73.1); Nucleated Red Blood Cells Perc 0.1 % (0.0-0.2); Platelet Count Result 341 k/mm3 (150-375); Red Blood Count 4.82 M/mm3 (4.2-5.4); White Blood Count 16.1 K/mm3 (4.5-10.0)
[2023-11-13 18:42] LABS: Hemoglobin A1C 5.8 % (<5.7)
[2023-11-13 18:43] LABS: Alanine Aminotransferase 24 U/L (6-35); Albumin Level 3.8 g/dL (3.5-5.1); Alkaline Phosphatase 180 U/L (38-126); Anion Gap 3 mmol/L (8-16); Aspartate Amino Transferase 29 U/L (14-36); Bilirubin,Total 0.5 mg/dL (0.2-1.3); Blood Urea Nitrogen 8 mg/dL (7-17); Calcium 9.1 mg/dL (8.4-10.2); Carbon Dioxide 31 mmol/L (22-30); Chloride 106 mmol/L (98-107); Estimated Glomerular Filt Rate > 60; Glucose 90 mg/dL (65-110); Potassium 3.8 mmol/L (3.4-5.0); Sodium 140 mmol/L (137-145)
[2023-11-13 19:09] LABS: Thyroid Stimulating Hormone 0.186 uIU/mL (0.465-4.680)
== END 2023-11-13 15:00 | disposition home or self-care (01) ==
PROVIDERS: PCP Family Medicine; Visit Provider Nurse Practitioner Family
DX: R25.1 Tremor, unspecified (principal)
CPT/HCPCS: 36415; 80053; 83036; 84443; 85025

== ENCOUNTER 2024-01-19 11:41 | Outpatient (CLI) | payer OTHER, SELFPAY | END 2024-01-19 11:42 | disposition home or self-care (01) | LOC: ANHGOSHLAB 11:43 | PROVIDERS: PCP Nurse Practitioner Family; Visit Provider Nurse Practitioner Family | DX: E03.9 Hypothyroidism, unspecified (principal) | CPT/HCPCS: 36415; 84443 ==

== ENCOUNTER 2024-06-29 08:53 | Outpatient (CLI) | payer OTHER, SELFPAY ==
[2024-06-29 13:43] LABS: Alanine Aminotransferase 14 U/L (6-35); Albumin Level 3.9 g/dL (3.5-5.1); Alkaline Phosphatase 197 U/L (38-126); Anion Gap 10 mmol/L (4-12); Aspartate Amino Transferase 31 U/L (14-36); Bilirubin,Total 0.3 mg/dL (0.2-1.3); Blood Urea Nitrogen 14 mg/dL (7-17); Calcium 8.9 mg/dL (8.4-10.2); Carbon Dioxide 24 mmol/L (22-30); Chloride 104 mmol/L (98-107); Cholesterol 106 mg/dL (0-200); Estimated Glomerular Filt Rate > 60; Glucose 93 mg/dL (65-110); HDL Direct 34 mg/dL; Potassium 4.2 mmol/L (3.4-5.0); Sodium 138 mmol/L (137-145); Triglycerides 148 mg/dL (<150)
[2024-06-29 13:57] LABS: LDL Cholesterol Direct 40 mg/dL
[2024-06-29 14:11] LABS: Hemoglobin A1C 6.4 % (<5.7)
== END 2024-06-29 08:54 | disposition home or self-care (01) ==
PROVIDERS: PCP Nurse Practitioner Family; Visit Provider Nurse Practitioner Family
DX: E03.9 Hypothyroidism, unspecified (principal); I10 Essential (primary) hypertension; Z68.43 Body mass index [BMI] 50.0-59.9, adult; E11.622 Type 2 diabetes mellitus with other skin ulcer
CPT/HCPCS: 36415; 80053; 80061; 83036; 84443

== ENCOUNTER 2025-02-08 09:27 | Outpatient (CLI) | payer OTHER, SELFPAY ==
--- OUTSIDE RECORDS SUMMARY | 2025-02-08 10:12 | XMS_ITS | Clinical Summary ---
Author Organization [facility] Address [address] [place] [address] Care Team Providers Care Salon Manager Name Role Phone Marce Byrd ASSEMBLER KNIFE Primary Care Provider [phone] Allergies Active Allergy Reactions Criticality Noted Date Comments Cephalexin Unknown,Nausea and Vomiting 09/02/2017 Tramadol Itching,Unknown 09/02/2017 Needs benadryl with this medication Medications atorvastatin 80 MG tablet Take 80 mg by mouth. Active SUBLOCADE 300 MG/1.5ML injection 03/11/2020 Active metoprolol succinate ER 25 MG 24 hr tablet 11/01/2019 Act mohit levothyroxine 300 MCG tablet Take 300 mcg by mouth daily. 11/16/2019 Active hydrOXYzine 25 MG tablet Take 25 mg by mouth 3 (three) times daily as needed for Itching. Active QUEtiapine 200 MG tablet Take 200 mg by mouth nightly at bedtime. Active hydroCHLOROthia zide 12.5 MG capsule Take 12.5 mg by mouth every morning. Active ezetimibe 10 MG tablet Take 10 mg by mouth daily. Active hydroxychloroqu ine 200 MG tablet Take 200 mg by mouth 2 (two) times daily. 05/24/2021 Active gabapentin 300 MG capsule Take 300 mg by mouth 2 (two) times daily. 05/05/2021 Active tofacitinib citrate (XELJANZ XR) 11 MG TABLET SR 24 HR 24 hour tablet Take 11 mg by mouth daily. 05/04/2021 Active predniSONE 5 mg tablet Take 5 mg by mouth daily. Active aspirin 81 MG chewable tablet Chew 81 mg by mouth daily. Active Active Problems No known active problems Immunizations Name Administration Dates Next Due Influenza (Generic) 10/01/2015 Influenza Adult (Generic) 10/01/2015,11/08/2014 Social History Tobacco Use Types Packs/Day Years Used Date Smoking Tobacco: Every Day Cigarettes Smokeless Tobacco: Never Alcohol Use Standard Drinks/Week Comments No 0 (1 standard drink = 0.6 oz pur e alcohol) PHQ-2 Answer Date Recorded PHQ-2 Score - If the patient scores above 3, please move on to questions 3-9 0 08/28/2020 Comments No Sex and Gender Information Value Date Recorded Sex Assigned at Not on file Legal Sex Female 8:22 PM CDT Gender Identity Not on file Sexual Orientation Not on file Last Filed Vital Signs Vital Sign Reading Time Taken Comments Blood Pressure 157/99 01/05/2024 6:00 PM STRUCTURAL IRON ERECTOR Pulse 71 01/05/2024 6:00 PM STRUCTURAL IRON E[employer]OR Temperature 36.6 C (97.8 F) 01/05/2024 1:02 PM STRUCTURAL IRON E[employer]OR Respiratory Rate 18 01/05/2024 6:00 PM STRUCTURAL IRON ERECTOR Oxygen Saturation 98% 01/05/2024 6:00 PM STRUCTURAL IRON ERECTOR Inhaled Oxygen Concentration - - Weight 147.9 kg (326 lb) 01/05/2024 1:11 PM STRUCTURAL IRON E[employer]OR Height 160 cm (5' 3 ) 01/05/2024 1:02 PM STRUCTURAL IRON ERECTOR Body Mass Index 57.75 01/05/2024 1:02 PM STRUCTURAL IRON ERECTOR Plan of Treatment Health Maintenance Due Date Last Done Comments Colorectal Cancer Screening Colonoscopy (10 Years) 1976 Meningococcal Vaccine (1 - Risk 2-dose series) 1978 Annual Physical 1979 Pneumococcal Vaccine: Pediatrics (0 to 5 Years) and At-Risk Patients (6 to 64 Years) (1 of 2 - PCV) 1982 Meningococcal B Vaccine (1 of 5 - Increased Risk) 1986 Hepatitis C 1994 DTaP, Tdap and Td Vaccines (1 - Tdap) 1995 Hepatitis B Vaccines (1 of 3 - 19+ 3-dose series) 1995 Mammogram Screening 2016 COVID-19 Vaccine (4 - season) 2024 05/22/2022, 03/29/2021, 02/28/2021 Influenza Adult (#1) 2024 09/24/2023, 10/15/2022, 08/31/2020, Additional history exists RSV Immunizations Under 20 Months Aged Out No longer eligible based on patient's age to complete this topic Insurance [employer] Care Teams Salon Manager Relationship Specialty Start Date End Date Marce Byrd NP [id number] [place] [address] PCP - General Nurse Practitioner Family 01/05/24
--- OUTSIDE RECORDS SUMMARY | 2025-02-08 10:12 | XMS_ITS | Referral Summary ---
Author Organization [facility] Address [address] [place] [address] Care Team Providers Care Family Health Nurse Practitioner Name Role Phone Champ Guadarrama MD Unavailable [phone] None, Physician Primary Care Provider Unavailabl e Source Comments [facility],non-owned Affiliates and Associated Physician Practices is amultiple site organization consisting of ambulatory clinics and hospital sitesin [place], [place], [place] and [place]. This disclosure is being madepursuant to the Care Everywhere program and may not contain all information available regarding this patient. Last updated 18.[facility] Allergies Active Allergy Reactions Criticality Noted Date Comments Cephalexin Nausea and/or Vomiting,Vomiting Low 10/0 02/2017 Medications * Be aware that medications may not be up to date on this document. Alwaysverify current medications with the patient. Medication Sig Dispensed Refills Start Date End Date Status metoprolol succinate XL 24hr (TOPROL XL) 50 MG tabletIndications:Es sential hypertension Take 1 tablet by mouth once daily 30 tablet 3 11/16/2019 Active atorvastatin (LIPITOR) 40 MG tablet Take 1 (one) tablet by mouth once daily 05/13/2021 Active aspirin (ASPIRIN) 81 MG chew tablet Take 1 (one) tablet by mouth once daily Active levothyroxine (SYNTHROID) 300 MCG tabletIndications:Hy pothyroidism due to Henna's thyroiditis,Acquired hypothyroidism,Norma gamaliel's thyroiditis,Multinod ular goiter,Vitamin D deficiency TAKE 1 TABLET BY MOUTH EVERY DAY. 90 tablet 4 09/13/2021 Active Additional Information Patient taking differently: 275 mcg Oral DAILY, Reported on 09/24/2023 QUEtiapine (SEROQUEL) 400 MG tablet Take 1 (one) tablet by mouth at bedtime 10/16/2021 Active gabapentin (Neurontin) 600 MG tablet Take 2 (two) tablets by mouth 3 times daily 07/17/2022 Active traMADol (Ultram) 50 MG tablet TAKE 3 TABLETS BY MOUTH TWICE DAILY NEEDED FOR PAIN 09/02/2023 Active Rybelsus 14 MG tablet Take 1 (one) tablet by mouth once daily 08/17/2023 Active lidocaine viscous (Xylocaine) 2 % solution 10 mL by Mouth/Throat route as needed for Sore Throat or Pain 02/25/2024 Active temazepam (Restoril) 15 MG capsule Take 1 (one) capsule by mouth at bedtime 04/26/2024 Active hinksodlyy-HEGM-uzox -cod (Fioricet W/Codeine) 31-195-42-30 MG CAPS capsule TAKE 1 CAPSULE BY MOUTH EVERY 4 HOURS NEEDED FOR PAIN 10/28/2024 Active Active Problems Problem Noted Date Diagnosed Date Type 2 diabetes mellitus without complication Sensory neuropathy 07/31/2021 Entrapment neuropathy 07/31/2021 History of prediabetes 07/31/2021 Obesity 03/11/2021 Tobacco dependence 03/11/2021 Arthritis 08/02/2020 Essential thrombocytosis 08/02/2020 Hemorrhoids 08/02/2020 Hyperlipidemia 08/02/2020 Hypertension 08/02/2020 Primary insomnia 07/18/2020 Morbid obesity with body mas s index (BMI) of 40.0 to 44.9 in adult 05/10/2020 Episodic mood disorder 05/10/2020 Opioid abuse 05/10/2020 Insomnia 05/10/2020 Skin sensation disturbance 05/10/2020 Henna's thyroiditis 10/08/2017 Vitamin D deficiency 10/08/2017 Acquired hypothyroidism 07/29/2016 Multinodular goiter 07/29/2016 Immunizations Name Administration Dates Next Due INFLUENZA VACCINE, TRIV. (AF LURIA, FLUZONE TRIVALENT; 6MO+) (IIV3) 11/08/2014 Covid Fastly primary monoval ent 12+ yr 0.3mL Purple cap 03/29/2021,02/28/2021 INFLUENZA VACCINE 10/01/2015,11/08/2014 INFLUENZA VACCINE, QUADR. (F LUZONE; FLULAVAL; FLUARIX; AFLURIA QUADRIVALENT; 6MO+), 0.5 ML (IIV4) 09/24/2023,10/01/2015 MODERNA SARS-COV-2 COVID-19 VACCINE 0.25ML 05/22 iNFLUENZA VACCINE, RECOM-SALDANA, QUADR. (FLUBLOCK QUADRIVALENT; 18Y+) (RIV4) 10/15/2022,08/31/2020 Social History Tobacco Use Types Packs/Day Years Used Date Smoking Tobacco: Every Day Cigarettes 0.5 30 Smokeless Tobacco: Current Alcohol Use Standard Drinks/Week Comments No 0 (1 standard drink = 0.6 oz pur e alcohol) PHQ-2 Answer Date Recorded Patient Health Questionnaire-2 Score 0 09/24/2023 Sex and Gender Information Value Date Recorded Sex Assigned at Not on file Gender Identity Not on file Sexual Orientation Not on file Last Filed Vital Signs Vital Sign Reading Time Taken Comments Blood Pressure 130/88 11/01/2024 2:05 PM WINDING MACHINE OPERATOR Pulse 70 11/01/2024 2:05 PM WINDING MACHINE OPERATOR Temperature 36.2 C (97.2 F) 11/01/2024 2:05 PM WINDING MACHINE OPERATOR Respiratory Rate 17 11/26/2019 8:06 PM WINDING MACHINE OPERATOR Oxygen Saturation 98% 04/28/2024 3:13 PM CDT Inhaled Oxygen Concentration - - Weight 135 kg (297 lb 9.6 oz) 11/01/2024 2:05 PM WINDING MACHINE OPERATOR Height 160 cm (5' 2.99 ) 11/01/2024 2:05 PM WINDING MACHINE OPERATOR Body Mass Index 52.73 11/01/2024 2:05 PM WINDING MACHINE OPERATOR Plan of Treatment Upcoming Encounters Date Type Department Care Team (Late st Contact Info) Description 10/31/2025 11:20 AM WINDING MACHINE OPERATOR Office Visit [facility] - Rheumatology [address] [place] [address], [facility] [place] [address] Dulce Maria Morales MD [address] [place] [address] [place] [address] Procedures Procedure Name Priority Date/Time Associated Diagnosis Comments COMPREHENSIVE METABOLIC PANEL Routine 04/28/2024 4:18 PM CDT Sjogren's syndrome with keratoconjunctivitis sicca (HCC) HEPATITIS C ANTIBODY Routine 03/17/2022 3:58 PM CDT Juvenile idiopathic arthritis (HCC) Arthralgia, unspecified joint Long-term use of immunosuppressant medication Antiphospholipid antibody positive HEMOGLOBIN A1C Routine 11/04/2021 3:35 PM WINDING MACHINE OPERATOR Sensory neuropathy History of prediabetes from Last 3 Months or Most Recently Relevant to Health Maintenance Results * (ABNORMAL) COMPREHENSIVE METABOLIC PANEL (04/28/2024 4:18 PM CDT) BUN 8 7 - 26 mg/dL 04/28/2024 5:32 PM [facility] Creatinine 0.74 0.56 - 0.96 mg/dL 04/28/2024 5:32 PM [facility] Sodium 139 136 - 145 mmol/L 04/28/2024 5:32 PM [facility] Potassium 3.8 3.5 - 4.5 mmol/L 04/28/2024 5:32 PM [facility] Chloride 104 98 - 107 mmol/L 04/28/2024 5:32 PM [facility] CO2 25 22 - 29 mmol/L 04/28/2024 5:32 PM [facility] Glucose 90 70 - 115 mg/dL 04/28/2024 5:32 PM [facility] Calcium 9.4 8.4 - 10.2 mg/dL 04/28/2024 5:32 PM [facility] Protein Total 6.7 6.0 - 8.3 g/dL 04/28/2024 5:32 PM [facility] Albumin 3.1(L) 3.4 - 5.0 g/dL 04/28/2024 5:32 PM [facility] Bilirubin Total 0.2 0.2 - 1.2 mg/dL 04/28/2024 5:32 PM [facility] Alkaline Phosphatase 186(H) 40 - 150 U/L 04/28/2024 5:32 PM CDT [facility] ALT 20 5 - 55 U/L 04/28/2024 5:32 PM [facility] AST 14 5 - 34 U/L 04/28/2024 5:32 PM [facility] Anion Gap 10 6 - 16 04/28/2024 5:32 PM [facility] BUN/Creatinine Ratio 11 7 - 23 04/28/2024 5:32 PM [facility] Osmolality Calculated 286 275 - 295 mOsm/kg 04/28/2024 5:32 PM [facility] Albumin/Globulin Ratio 0.9(L) 1.1 - 2.3 04/28/2024 5:32 PM [facility] eGFR by CKD-EPI >90 >=90 mL/min/1.7 3 m2 04/28/2024 5:32 PM [facility] Blood BLOOD SPECIMEN / Unknown Lab Venipuncture / Unknown 04/28/2024 4:18 PM CDT 04/28/2024 4:55 PM CDT Dulce Maria Morales MD LAB - CHEMISTRY [facility] [address] [address], [facility] [phone] * HEPATITIS C ANTIBODY (03/17/2022 3:58 PM CDT) Hepatitis C Antibody Non-react mohit Non-reac tive 03/17/2022 5:16 PM [facility] Comment:Hepatitis C Antibody screen indicates no serologic evidence of past or current infection with Hepatitis C Virus. Patients with unexplained liver disease who are immunocompromised or suspected of having acute Hepatitis C infection may benefit from Nucleic Acid Test (LISA) for Hepatitis C Viral RNA to confirm Hepatitis C status. Blood BLOOD SPECIMEN / Unknown Lab Venipuncture / Unknown 03/17/2022 3:58 PM CDT 03/17/2022 4:30 PM CDT My Pinon MD LAB - CHEMISTRY ORDERABLES [facility] [address] [place] [address], [facility] [phone] * (ABNORMAL) HEMOGLOBIN A1C (11/04/2021 3:35 PM WINDING MACHINE OPERATOR) Hemoglobin A1c 6.5(H) 4.4 - 6.3 % 11/05/2021 9:43 AM [facility] Estimated Average Glucose 140 mg/dL 11/05/2021 9:43 AM [facility] Comment: HbA1c Interpretation: Treatment target values recommended by ADA and other clinical organizations should be used to evaluate metabolic control in patients. Treatment Target Values: Normal : < 5.7% Pre-diabetes: 5.7-6.4% Diabetes: Equal to or greater than 6.5% Reference: [place] [employer] Standards of Care in Diabetes -2014 In patients 70 years and older consider HbA1c target range of 7.0-7.5% Reference: Diabetes Mellitus in Older People: Position Statement on behalf of the International Association of Gerontology and Geriatrics (IAGG), the Diabetes Working Constitution Party for Older People (EDWPOP), and the International Task Force of Experts in Diabetes. Jorge Danielson, et al. J [place] [employer] Association. 2012 Test results diagnostic of diabetes should be repeated for confirmation. The Sebia Capillary 2 assay for the measurement of HbA1c is a National Glycohemoglobin Standardization Program (NGSP)certified method. Blood BLOOD SPECIMEN / Unknown Lab Venipuncture / Unknown 11/04/2021 3:35 PM WINDING MACHINE OPERATOR 11/04/2021 3:54 PM WINDING MACHINE OPERATOR Breanna Gauthier MD LAB - CHEMISTRY [facility] Organization Address City/State/ZIP Co de Phone Number [facility] [address] [place] [address], [facility] [phone] from Last 3 Months or Most Recently Relevant to Health Maintenance Care Teams Family Health Nurse Practitioner Relationship Specialty Start Date End Date None, Physician [address] [place] [address] PCP - General 09/24/23 Champ Guadarrama MD [facility] [place] [address] Gastroenterology 07/30/22
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
--- OUTSIDE RECORDS SUMMARY | 2025-02-08 10:12 | XMS_ITS | Clinical Summary ---
Author Organization [facility] Associated Material Processing Address [address] [place] [address] Care Team Providers Care Heel Stiffener Name Role Phone Champ Guadarrama MD Unavailable [phone] None, Physician Primary Care Provider Unavailabl e Source Comments [facility] Associated Material Processing,non-owned Affiliates and Associated Physician Practices is amultiple site organization consisting of ambulatory clinics and hospital sitesin [place], [place], [place] and [place]. This disclosure is being madepursuant to the Care Everywhere program and may not contain all information available regarding this patient. Last updated 18.[facility] [employer] Allergies Active Allergy Reactions Criticality Noted Date [...] capsule by mouth at bedtime 04/26/2024 Active fvkzdxfmxw-PQXN-eobf -cod (Fioricet W/Codeine) 78-508-37-30 MG CAPS capsule TAKE 1 CAPSULE BY [...] LURIA, FLUZONE TRIVALENT; 6MO+) (IIV3) 11/08/2014 Covid [employer] primary monoval ent 12+ yr 0.3mL Purple cap 03/29/2021,02/28/2021 INFLUENZA VACCINE 10/01/2015,11/08/2014 INFLUENZA VACCINE, QUADR. (F LUZONE; FLULAVAL; FLUARIX; AFLURIA QUADRIVALENT; 6MO+), 0.5 ML (IIV4) 09/24/2023,10/01/2015 MODERNA SARS-COV-2 COVID-19 VACCINE 0.25ML 05/22 iNFLUENZA VACCINE, RECOM-SALDANA, QUADR. (FLUBLOCK QUADRIVALENT; 18Y+) (RIV4) 10/15/2022,08/31/2020 Family History Medical History Relation Name Comments Hypertension Brother Other - Cardiac Brother Cancer - Other Father Diabetes - Type 2 Father Other - Cardiac Father Other - Cardiac Mother Asthma Neg Hx Autoimmune Disease Neg Hx Bipolar Disorder Neg Hx Cancer - Breast Neg Hx Cancer - Colon Neg Hx Cancer - Ovarian Neg Hx Cancer - Pancreatic Neg Hx Cancer - Prostate Neg Hx Depression Neg Hx Eczema Neg Hx Migraine Neg Hx Osteoporosis Neg Hx Seizures Neg Hx Sudd. <30 Neg Hx Thyroid Disease Neg Hx Ulcerative Colitis Neg Hx Relation Name Status Comments Brother Alive Father Alive Maternal Grandfather Maternal Grandmother Mother Alive Paternal Grandfather Paternal Grandmother Son Alive Social History Tobacco Use Types Packs/Day Years [...] Comments Blood Pressure 130/88 11/01/2024 2:05 PM LPN INSTRUCTOR Pulse 70 11/01/2024 2:05 PM LPN INSTRUCTOR Temperature 36.2 C (97.2 F) 11/01/2024 2:05 PM LPN INSTRUCTOR Respiratory Rate 17 11/26/2019 8:06 PM LPN INSTRUCTOR Oxygen Saturation 98% 04/28/2024 3:13 PM CDT Inhaled Oxygen Concentration - - Weight 135 kg (297 lb 9.6 oz) 11/01/2024 2:05 PM LPN INSTRUCTOR Height 160 cm (5' 2.99 ) 11/01/2024 2:05 PM LPN INSTRUCTOR Body Mass Index 52.73 11/01/2024 2:05 PM LPN INSTRUCTOR Plan of Treatment Upcoming Encounters Date Type Department Care Team (Late st Contact Info) Description 10/31/2025 11:20 AM LPN INSTRUCTOR Office Visit [facility] - Rheumatology [facility], [place] [phone] Dulce Maria Morales MD [facility] [address] [address] Health Maintenance Due Date Last Done Comments COLOGUARD (AGES 45-75) - COLON CA SCREENING 1976 COLON MONITORING 1976 COLONOSCOPY - COLON CA SCREENING 1976 CT COLONOGRAPHY - COLON CA SCREENING 1976 Colorectal Cancer Screening 1976 FIT - COLON CA SCREENING 1976 FLEX SIG - COLON CA SCREENING 1976 HIB VACCINE (1 of 1 - Risk 1-dose series) 03/27/1978 MENINGOCOCCAL GROUPS A/C/Y/W VACCINE (1 - Risk 2-dose series) 1978 MENINGOCOCCAL (Group B) VACCINE SHARED DECISION-MAKING (1 of 5 - Increased Risk) 1986 HIV SCREENING 1991 DTAP/TDAP/TD VACCINES (1 - Tdap) 1995 HEPATITIS B VACCINE (1 of 3 - 19+ 3-dose series) 1995 PNEUMOCOCCAL VACCINE (1 of 2 - PCV) 1995 MAMMOGRAM 01/14/2019 01/14/2017, 01/14/2017 PAP SMEAR 05/11/2020 05/11/2017 (Done Outside Per Patient) DIABETES-FOOT EXAM WITH MONOFILAMENT 10/01/2022 DIABETES-HGB A1C 10/01/2022 11/04/2021, 11/01/2019 COVID-19 VACCINE ( season) 2024 05/22/2022, 03/29/2021, 02/28/2021 INFLUENZA VACCINE (#1) 2024 3, 10/15/2022, 08/31/2020, Additional history exists DIABETES RETINOPATHY SCREENING 10/01/2024 10/01/2022 DEPRESSION SCREENING 11/30/2024 09/24/2023, 07/23/20 22 DIABETES - URINE PROTEIN SCREENING 11/30/2024 DIABETES-SERUM CREATININE 04/28/20252023, 01/05/2024, 01/05/2024, Additional history exists ZOSTER VACCINE (1 of 2) 2026 HEPATITIS C SCREENING Completed 03/17/2022 HPV VACCINE Aged Out No longer eligi ble based on patient's age to complete this topic Procedures Procedure Name Priority Date/Time Associated Diagnosis Comments COMPREHENSIVE METABOLIC PANEL Routine 04/28/2024 4:18 PM CDT Sjogren's syndrome with keratoconjunctivitis sicca (HCC) HEPATITIS C ANTIBODY Routine 03/17/2022 3:58 PM CDT Juvenile idiopathic arthritis (HCC) Arthralgia, unspecified joint Long-term use of immunosuppressant medication Antiphospholipid antibody positive HEMOGLOBIN A1C Routine 11/04/2021 3:35 PM LPN INSTRUCTOR Sensory neuropathy History of prediabetes from Last 3 Months or Most Recently Relevant to Health Maintenance Results * (ABNORMAL) COMPREHENSIVE METABOLIC PANEL (04/28/2024 4:18 PM CDT) BUN 8 7 - 26 mg/dL 04/28/2024 5:32 PM [facility] Creatinine 0.74 0.56 - 0.96 mg/dL 04/28/2024 5:32 PM [facility] Sodium 139 136 - 145 mmol/L 04/28/2024 5:32 PM [facility] Potassium 3.8 3.5 - 4.5 mmol/L 04/28/2024 5:32 PM [facility] Chloride 104 98 - 107 mmol/L 04/28/2024 5:32 PM [facility] CO2 25 22 - 29 mmol/L 04/28/2024 5:32 PM [facility] Glucose 90 70 - 115 mg/dL 04/28/2024 5:32 PM [facility] Calcium 9.4 8.4 - 10.2 mg/dL 04/28/2024 5:32 PM [facility] Protein Total 6.7 6.0 - 8.3 g/dL 04/28/2024 5:32 PM [facility] Albumin 3.1(L) 3.4 - 5.0 g/dL 04/28/2024 5:32 PM [facility] Bilirubin Total 0.2 0.2 - 1.2 mg/dL 04/28/2024 5:32 PM [facility] Alkaline Phosphatase 186(H) 40 - 150 U/L 04/28/2024 5:32 PM [facility] ALT 20 5 - 55 U/L 04/28/2024 5:32 PM [facility] AST 14 5 - 34 U/L 04/28/2024 5:32 PM [facility] Anion Gap 10 6 - 16 04/28/2024 5:32 PM [facility] BUN/Creatinine Ratio 11 7 - 23 04/28/2024 5:32 PM [facility] Osmolality Calculated 286 275 - 295 mOsm/kg 04/28/2024 5:32 PM [facility] Albumin/Globulin Ratio 0.9(L) 1.1 - 2.3 04/28/2024 5:32 PM [facility] eGFR by CKD-EPI >90 >=90 mL/min/1.7 3 m2 04/28/2024 5:32 PM [facility] Blood BLOOD SPECIMEN / Unknown Lab Venipuncture / Unknown 04/28/2024 4:18 PM CDT 04/28/2024 4:55 PM CDT Dulce Maria Morales MD LAB - CHEMISTRY ORDE ZAINAB [facility] Organization Address City/State/ZIP Co de Phone Number [facility] [address] [place] [address], [facility] [phone] * HEPATITIS C ANTIBODY (03/17/2022 3:58 PM CDT) Hepatitis C Antibody Non-react mohit Non-reac tive 03/17/2022 5:16 PM [facility] Comment:Hepatitis C Antibody screen indicates no [...] My Pinon MD LAB - CHEMISTRY ORDERABLES Performing Organization Address City/[facility]/ZIP Co de Phone Number [facility] [address] [place] [address], [facility] [phone] * (ABNORMAL) HEMOGLOBIN A1C (11/04/2021 3:35 PM LPN INSTRUCTOR) Hemoglobin A1c 6.5(H) 4.4 - 6.3 % 11/05/2021 9:43 AM LPN INSTRUCTOR [facility] Estimated Average Glucose 140 mg/dL 11/05/2021 9:43 AM LPN INSTRUCTOR [facility] Comment: HbA1c Interpretation: Treatment target values recommended by ADA and other clinical organizations should be used to evaluate metabolic control in patients. Treatment Target Values: Normal : < 5.7% Pre-diabetes: 5.7-6.4% Diabetes: Equal to or greater than 6.5% Reference: [place] Diabetes Association Standards of Care in Diabetes -2014 In patients 70 years and older consider HbA1c target range of 7.0-7.5% Reference: Diabetes Mellitus in Older People: Position Statement on behalf of the International Association of Gerontology and Geriatrics (IAGG), the Diabetes Working Constitution Party for Older People (EDWPOP), and the International Task Force of Experts in Diabetes. Jorge Danielson, et al. J [place] [employer] Association. 2012 Test results diagnostic of diabetes should be repeated for confirmation. The Sebia Capillary 2 assay for the measurement of HbA1c is a National Glycohemoglobin Standardization Program (NGSP)certified method. Blood BLOOD SPECIMEN / Unknown Lab Venipuncture / Unknown 11/04/2021 3:35 PM LPN INSTRUCTOR 11/04/2021 3:54 PM LPN INSTRUCTOR Breanna Gauthier MD LAB - CHEMISTRY VIANEY LAM[facility] [address] [place] [address], [facility] [phone] from Last 3 Months or Most Recently Relevant to Health Maintenance Care Teams Heel Stiffener Relationship Specialty Start Date End Date None, Physician [address] [place] [address] PCP - General 09/24/23 Champ Guadarrama MD [address] [place] [address] Gastroenterology 07/30/22
--- OUTSIDE RECORDS SUMMARY | 2025-02-08 10:12 | XMS_ITS | Patient Health Record ---
Author Organization [facility] Address [address] [place] [address] Care Team Providers Care Bus Transportation Manager Name Role Phone ZeinaJorge L Primary Care Provider Allergies Allergen (clinical drug ingredient) Drug/Non Drug Allergy documented on EMR Reaction Allergy Type Onset Date Status Cephalexin vomiting Drug Allergy Active Tramadol HCl hives Drug Allergy Acti ve Reason For Referral No Information Medications Medication SIG (Take, Route, Frequency, Duration) Notes Start Date End Date Status hydroCHLOROthiazide 50 MG 1 tablet in th e morning Orally Once a day for 90 days Active SEROquel 100 MG 1 tablet at bedtime Orally Once a day for 90 days Active SEROquel 400 MG 1 tablet at bedtime Orally Once a day for 90 days Active Hydroxychloroquine Sulfate 200 MG 1 tablet Orally twice daily RHEUM Active Diclofenac Sodium 75 MG TAKE 1 TABLET BY MOUTH TWICE DAILY NEEDED for 90 Active Atorvastatin Calcium 40 MG 1 tablet Oral ly Once a day for 90 days Active Aspirin Adult Low Dose 81 MG 1 tablet Or ally Once a day for 90 days OTC Active Levothyroxine Sodium 300 MCG TAKE 1 TABL ET BY MOUTH EVERY DAY IN THE MORNING ON AN EMPTY STOMACH for 90 Active Metoprolol Succinate ER 50 MG 1 tablet Orally Once a day for 90 days Active Benlysta 200 MG/ML 1 ml Subcutaneous once weekly RHEUM Not-Taking Gabapentin 600 MG 2 tablets Orally three times daily for 30 days 03/11/2021 Active Triamcinolone Acetonide 0.1 % 1 application Externally Twice a day for 90 days 05/24/2022 Active Topiramate 100 MG 0.5 tablet twice daily for 1 month then increase to 1 tablet twice daily Orally Once a day for 90 days 08/23/2022 Not-Taking Immunizations Vaccine Route Administration Date Status Comme nts FLU VAC NO PRSV 4 LUANA >6 MO Unknown 10/01/2015 Administ ered Influenza, seasonal, injecta ble (split), for 3 yrs and up Unknown 11/08/2014 Administered Moderna COVID-19 Unknown 05/22/2022 Administered Pfizer COVID-19 Unknown 02/28/2021 Administered Pfizer COVID-19 Unknown 03/29/2021 Administered Social History Tobacco Use: Social History Observation Description Date Details (start date - stop date) Current Smoker NA - NA Tobacco Use/Smoking Question Answer Notes Are you a current smoker How often do you smoke cigarettes? every day How many cigarettes a day do you smoke? 11-20 How soon after you wake up d o you smoke your first cigarette? after 60 minutes Additional Findings: Tobacco User Modera te cigarette smoker (10-19 cigs/day) Alcohol Screen (Audit-C) Question Answer Notes Did you have a drink containing alcohol in the p ast year? No Points 0 Interpretation Negative Sexual History Question Answer Notes Had sex in the past 12 months (vaginal, oral, or anal)? No Have you ever had a Sexually transmitted disease ? No Last menstrual period 2006 Tobacco use other than smoking: Question Answer Notes Are you an other tobacco user? No Problems Problem Type SNOMED Code ICD Code Onset Dates Problem Status W/U Status Risk Notes Problem 932388175 Morbid (severe) obesity due to excess calories (E66.01) 2 Active confirmed Problem 4992888 Primary insomnia (F51.01) 0 Active confirmed Problem 607153826 Overactive bladd er (N32.81) 3 Active confirmed Problem 20923232 Paresthesia of skin (R20.2) 0 Active confirmed Problem Obesity (278392396) Obesity (BMI 30-39.9) (E66.9) 1 Active confirmed Problem Tobacco dependence (18577107) Tobacco dependence (F17.200) 1 Active confirmed Problem 20976375 Essential hypertension (I10) 0 Active confirmed Problem 46357488 Other chronic pa in (G89.29) 2 Active confirmed Problem 10455663 Mood disorder (F39) 0 Active confirmed Problem 396667785 Insomnia, unspecified type (G47.00) 0 Active confirmed Problem 10563083 Hyperlipidemia, unspecified hyperlipidemia type (E78.5) 0 Active confirmed Problem 45276430 Hypothyroidism, unspecified type (E03.9) 0 Active confirmed Problem 32405356 Peripheral polyneuropathy (G62.9) 1 Active confirmed Problem 419617311 Type 2 diabetes mellitus without complication, without long-term current use of insulin (E11.9) 2 Active confirmed Problem Body mass index 40+ - severely obese (904160304) BMI 45.0-49.9, adult (Z68.42) 2 Active confirmed Problem 28050220 Stress incontinence of urine (N39.3) 2 Active confirmed Problem 4334728 Opioid abuse (F11.10) 0 Active confirmed Problem 176742360 Body mass index (BMI) 50.0-59.9, adult (Z68.43) 0 Active confirmed Problem Body mass index 40+ - morbidly obese (923814607) Adult body mass index 50.0-59.9 (Z68.43) 2 Active confirmed Plan Of Treatment Pending Test Test Name Order Date Echocardiogram (2D) : (Complete; W/O Spe ctral or Color) : 82210 05/25/2020 CT Scan : L-S Spine W/O Contrast : 23121 09/01/2022 Split Night Sleep Study - PSG Code : 958 11 07/18/2020 Ultrasound : Soft Tissue Head, Neck : 76 536 05/25/2020 BLOOD COUNT WITH DIFF * 05/24/2022 COMPREHENSIVE METABOLIC PANEL (CMP) * HB A1C * 05/24/2022 LIPID PANEL * 05/24/2022 TB QUANTIFERON GOLD * 08/23/2022 TSH W/ FT4 REFLEX * 05/24/2022 Insurance Providers Payer Name Payer Address Payer Phone Subscriber Number Group Number Insured Name Patient Relationship to Insured Coverage Start Date Coverage End Date [address] [id number] Enedelia Marie Self - patient is the insured Medical (General) History Medical History History ICD Code HTN High chloesterol Henna's Surgical History Surgery Date(Month/Year) pilonidal cyst removal tail bone 94 right femur repair 98 right hardware removal 99 gallbladder removal 02 06 spleen removal 12 LAPARO-VAG HYST INCL T/O 2009
--- OUTSIDE RECORDS SUMMARY | 2025-02-08 10:12 | XMS_ITS | Encounter Summary ---
Author Organization [facility] Health Address [address] [facility] [place] [address] Care Team Providers Care Livestock Feeder Name Role Phone Champ Guadarrama MD Unavailable [phone] None, Physician Primary Care Provider Unavailabl e Reason for Visit * Reason Onset Date Comments MEDICATION REFILL 09/24/2021 Encounter Details Date Type Department Care Team (Late st Contact Info) Description 09/24/2021 Refill [facility] [address] [facility] [place] [phone] Breanna Gauthier MD [address] [facility] [address] [place] [address] MEDICATION REFILL Social History Tobacco Use Types Packs/Day Years Used Date Smoking Tobacco: Every Day Cigarettes 0.5 30 Smokeless Tobacco: Current Comments:Vaping Alcohol Use Standard Drinks/Week Comments No 0 (1 standard drink = 0.6 oz pur e alcohol) Sex and Gender Information Value Date Recorded Sex Assigned at Not on file Gender Identity Not on file Sexual Orientation Not on file COVID-19 Exposure Response Date Recorded In the last month, have you been in contact with someone who was confirmed or suspected to have Coronavirus / COVID-19? No / Unsure 09/24/2021 1:32 PM CDT documented as of this encounter Miscellaneous Notes * Telephone Encounter - Anne Marcus - 09/25/2021 8:34 AM CDT Please send new dosing to pharmacy documented in this encounter Plan of Treatment Upcoming Encounters Date Type Department Care Team (Late st Contact Info) Description 10/31/2025 11:20 AM HORSE IDENTIFIER Office Visit [facility] - Rheumatology [address] [place] [address], [place] [phone] Dulce Maria Morales MD [address] [place] [address] [place] [phone] documented as of this encounter Visit Diagnoses Not on filedocumented in this encounter Care Teams Livestock Feeder Relationship Specialty Start Date End Date None, Physician [address] [place] [address] PCP - General 09/24/23 Champ Guadarrama MD [facility] [place] [address] Gastroenterology 07/30/22 documented as of this encounter
--- OUTSIDE RECORDS SUMMARY | 2025-02-08 10:12 | XMS_ITS | Referral Summary ---
Author Organization [facility] Address [address] [place] [address] Care Team Providers Care Industrial Automation Engineer Name Role Phone Marce Byrd NP Primary Care Provider [phone] Encounters Date Type Department Care Team Description 2024 1:00 PM OFFICE ANALYST Office Visit [facility] Orthopedics and Sports Medicine [address] [facility] [address] [place] [address] Taz Dave PA Primary osteoarthritis of both knees (Primary Dx) from Last 3 Months Allergies Active Allergy Reactions Criticality Noted Date Comments Cephalexin Nausea & Vomiting,Na usea And Vomiting,Stomach upset Low 09/02/2017 nausea and vomiting Stomach/GI Upset Medications aspirin 81 mg chewable tablet Take 1 tablet (81 mg total) by mouth daily Active atorvastatin (LIPITOR) 40 mg tablet Take 1 tablet (40 mg total) by mouth daily [address] (CYMBALTA) 60 mg capsule Take 2 capsules (120 mg total) by mouth daily 3 Active gabapentin (NEURONTIN) 600 mg tablet Take 2 tablets (1,200 mg total) by mouth 3 (three) times a day 2 Active levothyroxine (SYNTHROID) 75 mcg tablet Take 1 tablet (75 mcg total) by mouth daily 3 Active metoprolol XL (TOPROL-XL) 50 mg extended release tablet Take 1 tablet (50 mg total) by mouth daily Active Rybelsus 14 mg tablet Take 1 tablet (14 mg total) by mouth daily Active traMADoL (ULTRAM) 50 mg tablet Take 3 tablets (150 mg total) by mouth 2 (two) times a day Active HYDROcodone-marlene taminophen (NORCO) 7.5-325 mg per tablet Take by mouth every 6 (six) hours as needed 4 Active butalbitaL-acet exbcyz-bkl-ojp 89-045-31-30 mg capsule TAKE 1 CAPSULE BY MOUTH EVERY 4 HOURS NEEDED FOR PAIN 4 Active temazepam (RESTORIL) 15 mg capsule TAKE 1 CAPSULE BY MOUTH EVERY DAY AT BEDTIME 4 Active QUEtiapine (SEROquel) 100 mg tablet Take 1 tablet (100 mg total) by mouth nightly at bedtime 4 Active nicotine (NICODERM CQ) 7 mg APPLY 1 PATCH TOPICALLY TO THE SKIN DAILY 4 Active Active Problems Problem Noted Date Diagnosed Date Pre-diabetes 06/29/2024 Primary hypertension 06/29/2024 Low back pain 06/29/2024 BMI 50.0-59.9, adult 04/13/2024 Primary osteoarthritis of right knee 03/09/2024 Social History Tobacco Use Types Packs/Day Years Used Date Smoking Tobacco: Every Day Cigarettes 0.1 16 Tobacco Cessation:Ready to Q uit: Not Asked; Counseling Given: Not Answered AUDIT-C Answer Date Recorded Frequency of Alcohol Consumption Not on file 04/13/2024 Q2: How many drinks containi ng alcohol do you have on a typical day when you are drinking? Patient does not drink 4 Frequency of Binge Drinking Not on file 03/30 Personal Safety Answer Date Recorded Have you ever been in or are you currently in a harmful physical or emotional relationship or is someone making you feel afraid or unsafe? Denies 02/25/2024 Comments Unknown Sex and Gender Information Value Date Recorded Sex Assigned at Not on file Legal Sex Female 5:48 AM OFFICE ANALYST Gender Identity Not on file Sexual Orientation Not on file Last Filed Vital Signs Vital Sign Reading Time Taken Comments Blood Pressure 121/85 04/13/2024 1:15 PM CDT Pulse 79 04/13/2024 1:15 PM CDT Temperature 36.9 C (98.4 F) 04/13/2024 1:15 PM CDT Respiratory Rate 18 02/25/2024 9:23 PM CDT Oxygen Saturation 97% 02/25/2024 9:23 PM CDT Inhaled Oxygen Concentration - - Weight 131.1 kg (289 lb) 2024 12:59 PM OFFICE ANALYST Height 160 cm (5' 3 ) 2024 12:59 PM OFFICE ANALYST Body Mass Index 51.19 2024 12:59 PM OFFICE ANALYST Plan of Treatment Not on file Procedures Procedure Name Priority Date/Time Associated Diagnosis Comments GA ARTHROCENTESIS ASPIR&/INJ MAJOR JT/BURSA W/O US Routine 2024 1:00 PM OFFICE ANALYST Primary osteoarthritis of both knees SCREENING MAMMOGRAM BILATERAL W CHUCKY Routine 01/14/2017 11:47 AM OFFICE ANALYST from Last 3 Months or Most Recently Relevant to Health Maintenance Results * GA ARTHROCENTESIS ASPIR&/INJ MAJOR JT/BURSA W/O US (2024 1:00 PM OFFICE ANALYST) Narrative Taz Dave PA - 2024 1:00 PM OFFICE ANALYST Taz Dave PA 2024 1:14 PM Large Joint (Hip, Knee, Shoulder) Injection: bilateral knee Performed by: Taz Dave PA Authorized by: Taz Dave PA Large Joint Injection/Aspiration: Consent Given by: Patient Verbal consent obtained: Yes Supporting Documentation: Indications: Pain Procedure Details: Location: Knee Site: Bilateral knee Prep: patient was prepped using a clean technique Needle Size: 22 G Ultrasound guided: No Medications Right Large Joint Injection: 1 mL lidocaine 10 mg/mL (1 %); 40 mg triamcinolone 40 mg/mL Medications Left Large Joint Injection: 1 mL lidocaine 10 mg/mL (1 %); 40 mg triamcinolone 40 mg/mL Patient tolerance: Patient tolerated the procedure well with no immediate complications Taz MCMAHON IN CLINIC/BEDSIDE ORDERAB LES Final Result * Screening Mammogram Bilateral W Chucky (01/14/2017 11:47 AM OFFICE ANALYST) Anatomical Region Laterality Modality Breast Bilateral Mammography 01/14/2017 11:4 7 AM OFFICE ANALYST Impressions 01/14/2017 2:31 PM OFFICE ANALYST BI-RAD 1 NEGATIVE There is no mammographic evidence of malignancy. A 1 year screening mammogram is recommended. The patient has been or will be contacted. The patient will be entered into a reminder system with a target due date of 1 year for her next screening exam. Electronically signed by: Dr. Kevin Delgado M.D. nh/:01/14/2017 14:31:12 Casting Coordinator: Karime Lucero RTJulee)(M), [facility] letter sent: Normal Exam Reading location: BI-RADS: 1 Negative [EOD] Narrative 01/14/2017 2:31 PM OFFICE ANALYST - MG BILATERAL DIGITAL SCREENING MAMMOGRAM 3D/2D WITH MEDIOLATERAL OBLIQUE CRANIOCAUDAL: 01/14/2017 The study was acquired using full field digital technology and interpreted from soft copy. 2D digital mammographic views, as well as 3D digital tomosynthesis were performed in the CC and MLO projections. CLINICAL: Baseline mammogram. Denies any problems today. No personal history of breast cancer. No family history of breast cancer. COMPARISONS: None. BREAST TISSUE: There are scattered areas of fibroglandular density. FINDINGS: No significant masses, calcifications, or other findings are seen in either breast. Procedure Note Provider, MD Merly - 04/17/2021 - MG BILATERAL DIGITAL SCREENING MAMMOGRAM 3D/2D WITH MEDIOLATERAL OBLIQUE CRANIOCAUDAL: 01/14/2017 The study was acquired using full field digital technology and interpretedfrom soft copy. 2D digital mammographic views, as well as 3D digital tomosynthesis were performed in the CC and MLO projections. CLINICAL: Baseline mammogram. Denies any problems today. No personalhistory of breast cancer. No family history of breast cancer. COMPARISONS: None. BREAST TISSUE: There are scattered areas of fibroglandular density. FINDINGS: No significant masses, calcifications, or other findings areseen in either breast. IMPRESSION: BI-RAD 1 NEGATIVE There is no mammographic evidence of malignancy. A 1 year screeningmammogram is recommended. The patient has been or will be contacted. The patient will be entered into a reminder system with a target due dateof 1 year for her next screening exam. Electronically signed by: Dr. Kevin Delgado M.D. nh/:01/14/2017 14:31:12 Casting Coordinator: Karime ZARAGOZA)(M), [facility] letter sent: Normal Exam Reading location: BI-RADS: 1 Negative [EOD] Suha Pineda ENGINEERING DIRECTOR IMG MAMMO PROCEDURES Fin al Result from Last 3 Months or Most Recently Relevant to Health Maintenance Insurance [id number] Care Teams Industrial Automation Engineer Relationship Specialty Start Date End Date Marce Byrd NP PCP - General Family Medicine 11/18/23
--- OUTSIDE RECORDS SUMMARY | 2025-02-08 10:12 | XMS_ITS | Clinical Summary ---
Author Organization [facility] Address [address] [place] [address] Care Team Providers Care Defence Force Senior Officer Name Role Phone Marce Byrd NP Primary Care Provider [phone] Allergies Active Allergy Reactions Criticality Noted Date [...] (six) hours as needed 4 Active butalbitaL-acet asiigp-lbx-hqz 36-194-38-30 mg capsule TAKE 1 CAPSULE BY MOUTH [...] 04/13/2024 Primary osteoarthritis of right knee 03/09/2024 Encounters Date Type Department Care Team Description 2024 1:00 PM AUTOMOBILE BODY REPAIRER HELPER Office Visit [facility] Orthopedics and Sports Medicine [address] [place] [phone] Taz Dave PA Primary osteoarthritis of both knees (Primary Dx) from Last 3 Months Surgical History Surgery Date Site/Laterality Comments SECTION CHOLECYSTECTOMY HYSTERECTOMY UMBILICAL HERNIA REPAIR SPLENECTOMY LIVER BIOPSY Medical History Medical History Date Comments Anemia 2010 Arthritis Juvenile Fractures Hypertension Joint pain Low back pain Morbid obesity (HCC) Pancreatitis Thyroid disease History of transfusion Substance abuse (HCC) Sjogren's syndrome Hepatitis Family History Medical History Relation Name Comments Hypertension Brother Jose F Obesity Brother Jose F Sleep apnea Brother Jose F COPD Father Lung Cancer Father Lung Heart disease Father Lung Heart failure Father Lung Alcohol abuse Father's Brother All Arthritis Maternal Grandmother Carmela Colon cancer Maternal Grandmother Carmela Alcohol abuse Mother's Brother 1 Bill Alcohol abuse Mother's Brother 2 Juliano Heart attack Paternal Grandfather Neftaly Relation Name Status Comments Brother Jose F Father Lung Father's Brother All Maternal Grandmother Carmela Mother's Brother 1 Bill Mother's Brother 2 Juliano Paternal Grandfather Neftaly Social History Tobacco Use Types Packs/Day Years Used Date Smoking Tobacco: Every Day Cigarettes 0.1 16 Tobacco Cessation:Ready to Q uit: Not Asked; Counseling Given: Not Answered AUDIT-C Answer Date Recorded Frequency of Alcohol Consumption Not on file 04/13/2024 Q2: How many drinks containi ng alcohol do you have on a typical day when you are drinking? Patient does not drink Frequency of Binge Drinking Not on file 03/30 Personal Safety Answer Date Recorded Have you ever been in or are you currently in a harmful physical or emotional relationship or is someone making you feel afraid or unsafe? Denies 02/25/2024 Comments Unknown Sex and Gender Information Value Date Recorded Sex Assigned at Not on file Legal Sex Female 5:48 AM AUTOMOBILE BODY REPAIRER HELPER Gender Identity Not on file Sexual Orientation Not on file Obstetrics History Last Filed Vital Signs Vital Sign Reading Time Taken Comments Blood Pressure 121/85 04/13/2024 1:15 PM CDT Pulse 79 04/13/2024 1:15 PM CDT Temperature 36.9 C (98.4 F) 04/13/2024 1:15 PM CDT Respiratory Rate 18 02/25/2024 9:23 PM CDT Oxygen Saturation 97% 02/25/2024 9:23 PM CDT Inhaled Oxygen Concentration - - Weight 131.1 kg (289 lb) 2024 12:59 PM AUTOMOBILE BODY REPAIRER HELPER Height 160 cm (5' 3 ) 2024 12:59 PM AUTOMOBILE BODY REPAIRER HELPER Body Mass Index 51.19 2024 12:59 PM AUTOMOBILE BODY REPAIRER HELPER Plan of Treatment Health Maintenance Due Date Last Done Comments Colon Cancer Screening-Colonoscopy 1976 Depression Screening 1976 Hepatitis C Screening 1976 DTaP/Tdap/Td Vaccine (1 - Tdap) 1987 Hepatitis B Screening 1994 Regular Well Visit/Exam 18-64 1994 Pneumococcal vaccine <65 (1 of 2 - PCV) 1995 Breast Cancer Screening-Mammogram 01/14/2018 017 Covid-19 Vaccine (4 - 2023-2 5 season) 2024 05/22/2022, 03/29/2021, 02/28/2021 Influenza Vaccine (#1) 2024 3, 10/15/2022, 08/31/2020, Additional history exists Procedures Procedure Name Priority Date/Time Associated Diagnosis Comments [place] ARTHROCENTESIS ASPIR&/INJ MAJOR JT/BURSA W/O US Routine 2024 1:00 PM AUTOMOBILE BODY REPAIRER HELPER Primary osteoarthritis of both knees SCREENING MAMMOGRAM BILATERAL W CHUCKY Routine 01/14/2017 11:47 AM AUTOMOBILE BODY REPAIRER HELPER from Last 3 Months or Most Recently Relevant to Health Maintenance Results * [place] ARTHROCENTESIS ASPIR&/INJ MAJOR JT/BURSA W/O US (2024 1:00 PM AUTOMOBILE BODY REPAIRER HELPER) Narrative Taz Dave PA - 2024 1:00 PM AUTOMOBILE BODY REPAIRER HELPER Taz Dave PA 2024 1:14 PM Large [...] Mammogram Bilateral W Chucky (01/14/2017 11:47 AM AUTOMOBILE BODY REPAIRER HELPER) Anatomical Region Laterality Modality Breast Bilateral Mammography 01/14/2017 11:4 7 AM AUTOMOBILE BODY REPAIRER HELPER Impressions 01/14/2017 2:31 PM AUTOMOBILE BODY REPAIRER HELPER BI-RAD 1 NEGATIVE There is no mammographic evidence of malignancy. A 1 year screening mammogram is recommended. The patient has been or will be contacted. The patient will be entered into a reminder system with a target due date of 1 year for her next screening exam. Electronically signed by: Dr. Kevin Delgado M.D. nh/:01/14/2017 14:31:12 Water Plant Maintenance Mechanic: Karime ZARAGOZA)Elise), [facility] letter sent: Normal Exam Reading location: BI-RADS: 1 Negative [EOD] Narrative 01/14/2017 2:31 PM AUTOMOBILE BODY REPAIRER HELPER - MG BILATERAL DIGITAL SCREENING MAMMOGRAM 3D/2D [...] by: Dr. Kevin Delgado M.D. nh/:01/14/2017 14:31:12 Water Plant Maintenance Mechanic: Karime Jazmine ZARAGOZA)Elise), [facility] letter sent: Normal Exam Reading location: BI-RADS: 1 Negative [EOD] Suha Pineda NP IMG MAMMO PROCEDURES Fin al Result from Last 3 Months or Most Recently Relevant to Health Maintenance Insurance [facility] [address] [place] [id number] [facility] [id number] Care Teams Defence Force Senior Officer Relationship Specialty Start Date End Date Marce Byrd NP PCP - General Family Medicine 11/18/23
--- OUTSIDE RECORDS SUMMARY | 2025-02-08 10:13 | XMS_ITS | Encounter Summary ---
Author Organization [facility] Address [address] [place] [address] Care Team Providers Care Instructor Decorating Name Role Phone Champ Guadarrama MD Unavailable [phone] None, Physician Primary Care Provider Unavailabl e Encounter Details Date Type Department Care Team (Late st Contact Info) Description 06/27/2021 Telephone [facility] [address] [place] [address] My Pinon MD [address] [place] [address] Social History Tobacco Use Types Packs/Day Years Used Date Smoking Tobacco: Every Day Cigarettes 0.5 30 Smokeless Tobacco: Current Comments:Vaping Alcohol Use Standard Drinks/Week Comments No 0 (1 standard drink = 0.6 oz pur e alcohol) Sex and Gender Information Value Date Recorded Sex Assigned at Not on file Gender Identity Not on file Sexual Orientation Not on file documented as of this encounter Patient Instructions * Patient Instructions* Cecelia Cespedes - 06/27/2021 3:18 PM CDT Patient called to reschedule her appt.that is tomorrow. The next available appt. Is Nov.04. I booked it. However she wants to speak to or her nurse about getting off predinose. Can someoneplease call her today or tomorrow regarding this matter? Thank you Balbina documented in this encounter Plan of Treatment Upcoming Encounters Date Type Department Care Team (Late st Contact Info) Description 10/31/2025 11:20 AM WOODWIND INSTRUMENT REPAIRER Office Visit [facility] - Rheumatology [address] [place] [address], [place] [phone] Dulce Maria Morales MD [address] [place] [address] [place] [phone] documented as of this encounter Visit Diagnoses Not on filedocumented in this encounter Care Teams Instructor Decorating Relationship Specialty Start Date End Date None, Physician [address] [place] [address] PCP - General 09/24/[address] [facility] [place] [address] Gastroenterology 07/30/22 documented as of this encounter
--- OUTSIDE RECORDS SUMMARY | 2025-02-08 10:13 | XMS_ITS | Encounter Summary ---
Author Organization [facility] Address [address] [place] [address] Care Team Providers Care Photographic Spotter Name Role Phone Champ Guadarrama MD Unavailable [phone] None, Physician Primary Care Provider Unavailabl e Encounter Details Date Type Department Care Team (Late st Contact Info) Description 08/31/2020 Telephone [facility] [address] [place] [address] Timmy Jasso MD [address] [place] [address] Social History Tobacco Use Types Packs/Day Years [...] have Coronavirus / COVID-19? No / Unsure 08/31/2020 4:15 PM CDT documented as of this encounter Miscellaneous Notes * Telephone Encounter - Esther Lovelace - 08/31/2020 12:39 PM CDT Current Provider name:HENRIK Reason for call: This pts PCP office called requesting the office notes from the last visit. Their fax number is [phone] documented in this encounter Plan of Treatment Upcoming Encounters Date Type Department Care Team (Late st Contact Info) Description 10/31/2025 11:20 AM ANATOMY TEACHER Office Visit [facility] - Rheumatology [address] [place] [address], [place] [phone] Dulce Maria Morales MD [address] [place] [address] DIV [place] [phone] documented as of this encounter Visit Diagnoses Not on filedocumented in this encounter Care Teams Photographic Spotter Relationship Specialty Start Date End Date None, Physician [address] [place] [address] PCP - General 09/24/23 Champ Guadarrama MD [address] [place] [id number] Gastroenterology 07/30/22 documented as of this encounter
--- OUTSIDE RECORDS SUMMARY | 2025-02-08 10:13 | XMS_ITS | Patient Health Summary ---
Author Organization [facility] Scientific Intake Address [address] [place] [address] Care Team Providers Care Wood Furniture Assembler Name Role Phone Champ Guadarrama MD Unavailable [phone] None, Physician Primary Care Provider Unavailabl e Note from [facility] Scientific Intake [facility],non-owned Affiliates and Associated Physician Practices is amultiple site organization consisting of ambulatory clinics and hospital sitesin [place], [place], [place] and [place]. This disclosure is being madepursuant to the Care Everywhere program and may not contain all information available regarding this patient. Last updated 18.[facility] Scientific Intake Allergies * Cephalexin(Nausea and/or Vomiting,Vomiting) -Low Criticality * Tramadol(Urticaria,Itching) -Medium Criticality,Inactive Medications * Be aware that medications may not be up to date on this document. Alwaysverify current medications with the patient. * metoprolol succinate XL 24hr (TOPROL XL) 50 MG tablet(Started 11/16/2019) Take 1 tablet by mouth once daily 3 refills by 11/15/2020 * atorvastatin (LIPITOR) 40 MG tablet(Started 05/13/2021) Take 1 (one) tablet by mouth once daily * aspirin (ASPIRIN) 81 MG chew tablet Take 1 (one) tablet by mouth once daily * levothyroxine (SYNTHROID) 300 MCG tablet(Started 09/13/2021) TAKE 1 TABLET BY MOUTH EVERY DAY. 4 refills by 09/13/2022 * QUEtiapine (SEROQUEL) 400 MG tablet(Started 10/16/2021) Take 1 (one) tablet by mouth at bedtime * gabapentin (Neurontin) 600 MG tablet(Started 07/17/2022) Take 2 (two) tablets by mouth 3 times daily * traMADol (Ultram) 50 MG tablet(Started 09/02/2023) TAKE 3 TABLETS BY MOUTH TWICE DAILY NEEDED FOR PAIN * Rybelsus 14 MG tablet(Started 08/17/2023) Take 1 (one) tablet by mouth once daily * lidocaine viscous (Xylocaine) 2 % solution(Started 02/25/2024) 10 mL by Mouth/Throat route as needed for Sore Throat or Pain * temazepam (Restoril) 15 MG capsule(Started 04/26/2024) Take 1 (one) capsule by mouth at bedtime * [id number] (Fioricet W/Codeine) [id number] MG CAPS capsule (Started 10/28/2024) TAKE 1 CAPSULE BY MOUTH EVERY 4 HOURS NEEDED FOR PAIN Active Problems Problem Noted Date Diagnosed Date [...] Acquired hypothyroidism 07/29/2016 Multinodular goiter 07/29/2016 Immunizations * INFLUENZA VACCINE, TRIV. (AFLURIA, FLUZONE TRIVALENT; 6MO+) (IIV3)(Given 11/08/2014) * Covid Pfizer primary monovalent 12+ yr 0.3mL Purple cap(Given 03/29/2021, 02/28/2021) * INFLUENZA VACCINE(Given 10/01/2015, 11/08/2014) * INFLUENZA VACCINE, QUADR. (FLUZONE; FLULAVAL; FLUARIX; AFLURIA QUADRIVALENT; 6MO+), 0.5 ML (IIV4)(Given 09/24/2023, 10/01/2015) * MODERNA SARS-COV-2 COVID-19 VACCINE 0.25ML(Given 05/22/2022) * iNFLUENZA VACCINE, RECOM-SALDANA, QUADR. (FLUBLOCK QUADRIVALENT; 18Y+) (RIV4)(Given 10/15/2022, 08/31/2020) Social History Tobacco Use Types Packs/Day Years [...] Comments Blood Pressure 130/88 11/01/2024 2:05 PM DOPE MIXER Pulse 70 11/01/2024 2:05 PM [facility]OPE [facility]ER Temperature 36.2 C (97.2 F) 11/01/2024 2:05 PM DOPE MIXER Respiratory Rate 17 11/26/2019 8:06 PM DOPE MIXER Oxygen Saturation 98% 04/28/2024 3:13 PM CDT Inhaled Oxygen Concentration - - Weight 135 kg (297 lb 9.6 oz) 11/01/2024 2:05 PM [facility]OPE [facility] Height 160 cm (5' 2.99 ) 11/01/2024 2:05 PM DOPE MIXER Body Mass Index 52.73 11/01/2024 2:05 PM DOPE M[facility]ER Procedures * DIFFERENTIAL MANUAL(Performed 04/28/2024) Performed for Sjogren's syndrome with keratoconjunctivitis sicca (HCC) * PROTEIN ELECTROPHORESIS BLOOD(Performed 04/28/2024) Performed for Sjogren's syndrome with keratoconjunctivitis sicca (HCC) * COMPLEMENT C4(Performed 04/28/2024) Performed for Sjogren's syndrome with keratoconjunctivitis sicca (HCC) * COMPLEMENT C3(Performed 04/28/2024) Performed for Sjogren's syndrome with keratoconjunctivitis sicca (HCC) * COMPREHENSIVE METABOLIC PANEL(Performed 04/28/2024) Performed for Sjogren's syndrome with keratoconjunctivitis sicca (HCC) * CBC W AUTO DIFFERENTIAL(Performed 04/28/2024) Performed for Sjogren's syndrome with keratoconjunctivitis sicca (HCC) * IMMUNOGLOBULINS IGG/IGM/IGA PANEL(Performed 04/28/2024) Performed for Sjogren's syndrome with keratoconjunctivitis sicca (HCC) * KAPPA/LAMBDA LITE CHAIN FREE PANEL(Performed 04/28/2024) Performed for Sjogren's syndrome with keratoconjunctivitis sicca (HCC) * PROTEIN CREATININE RATIO URINE RANDOM PNL(Performed 09/24/2023) Performed for Sjogren's syndrome with keratoconjunctivitis sicca (HCC) * URINALYSIS W/MICROSCOPIC REFLEX TO CULTURE(Performed 09/24/2023) Performed for Sjogren's syndrome with keratoconjunctivitis sicca (HCC) * DIFFERENTIAL MANUAL(Performed 09/24/2023) Performed for Sjogren's syndrome with keratoconjunctivitis sicca (HCC) * HEPATIC FUNCTION PANEL(Performed 09/24/2023) Performed for Sjogren's syndrome with keratoconjunctivitis sicca (HCC) * CREATININE BLOOD(Performed 09/24/2023) Performed for Sjogren's syndrome with keratoconjunctivitis sicca (HCC) * CBC W AUTO DIFFERENTIAL(Performed 09/24/2023) Performed for Sjogren's syndrome with keratoconjunctivitis sicca (HCC) * OH DRAIN/INJECT LARGE JOINT/BURSA(Performed 04/29/2023) Performed for Localized osteoarthritis of right knee * XR KNEE RIGHT 4VW OR MORE(Performed 04/24/2023) Performed for Right knee pain, unspecified chronicity * PROTEIN CREATININE RATIO URINE RANDOM PNL(Performed 03/26/2023) Performed for Sjogren's syndrome with keratoconjunctivitis sicca (HCC) * URINALYSIS W/MICROSCOPIC REFLEX TO CULTURE(Performed 03/26/2023) Performed for Sjogren's syndrome with keratoconjunctivitis sicca (HCC) * RHEUMATOID FACTOR BLOOD QUANTITATIVE(Performed 03/26/2023) Performed for Sjogren's syndrome with keratoconjunctivitis sicca (HCC) * COMPLEMENT C4(Performed 03/26/2023) Performed for Sjogren's syndrome with keratoconjunctivitis sicca (HCC) * COMPLEMENT C3(Performed 03/26/2023) Performed for Sjogren's syndrome with keratoconjunctivitis sicca (HCC) * IMMUNOGLOBULINS IGG/IGM/IGA PANEL(Performed 03/26/2023) Performed for Sjogren's syndrome with keratoconjunctivitis sicca (HCC) * PROTEIN ELECTROPHORESIS BLOOD(Performed 03/26/2023) Performed for Sjogren's syndrome with keratoconjunctivitis sicca (HCC) * COMPREHENSIVE METABOLIC PANEL(Performed 03/26/2023) Performed for Sjogren's syndrome with keratoconjunctivitis sicca (HCC) * CBC W AUTO DIFFERENTIAL(Performed 03/26/2023) Performed for Sjogren's syndrome with keratoconjunctivitis sicca (HCC) * OPH COLOR FUNDUS PHOTOGRAPHY SLU(Performed 11/03/2022) Performed for Long-term use of Plaquenil * OPH VISUAL FIELD TEST SLU(Performed 11/03/2022) Performed for Long-term use of Plaquenil * OPH OCT TEST SLU(Performed 10/01/2022) Performed for Long-term use of Plaquenil * PATHOLOGY TISSUE(Performed 08/19/2022) Performed for Dry mouth * OH BIOPSY OF LIP(Performed 08/19/2022) Performed for Dry mouth * URIC ACID BLOOD(Performed 07/23/2022) Performed for Arthralgia, unspecified joint * CT ABDOMEN PELVIS W CONTRAST(Performed 04/11/2022) Performed for Juvenile idiopathic arthritis (HCC), Arthralgia, unspecified joint, Long-term use of immunosuppressant medication, Antiphospholipid antibody positive * BETA-2 GLYCOPROTEIN 1 ANTIBODY IGG/IGM PANEL(Performed 03/17/2022) Performed for Juvenile idiopathic arthritis (HCC) * BETA-2 GLYCOPROTEIN 1 ANTIBODY IGA(Performed 03/17/2022) Performed for Juvenile idiopathic arthritis (HCC) * DIFFERENTIAL MANUAL(Performed 03/17/2022) Performed for Juvenile idiopathic arthritis (HCC), Arthralgia, unspecified joint, Long-term use of immunosuppressant medication, Antiphospholipid antibody positive * QUANTIFERON-TB GOLD PLUS 4-TUBE(Performed 03/17/2022) Performed for Juvenile idiopathic arthritis (HCC) * SMOOTH MUSCLE ANTIBODY W REFLEX TITER(Performed 03/17/2022) Performed for Juvenile idiopathic arthritis (HCC) * SS-A (SJOGREN'S) 52+60 ANTIBODIES(Performed 03/17/2022) Performed for Juvenile idiopathic arthritis (HCC) * HEPATITIS B SURFACE ANTIGEN W RFLX CONFIRMATION(Performed 03/17/2022) Performed for Juvenile idiopathic arthritis (HCC), Arthralgia, unspecified joint, Long-term use of immunosuppressant medication, Antiphospholipid antibody positive * HEPATITIS C ANTIBODY(Performed 03/17/2022) Performed for Juvenile idiopathic arthritis (HCC), Arthralgia, unspecified joint, Long-term use of immunosuppressant medication, Antiphospholipid antibody positive * HEPATITIS B CORE ANTIBODY TOTAL(Performed 03/17/2022) Performed for Juvenile idiopathic arthritis (HCC), Arthralgia, unspecified joint, Long-term use of immunosuppressant medication, Antiphospholipid antibody positive * HEPATITIS B SURFACE ANTIBODY(Performed 03/17/2022) Performed for Juvenile idiopathic arthritis (HCC), Arthralgia, unspecified joint, Long-term use of immunosuppressant medication, Antiphospholipid antibody positive * MITOCHONDRIAL ANTIBODY SCREEN(Performed 03/17/2022) Performed for Juvenile idiopathic arthritis (HCC), Arthralgia, unspecified joint, Long-term use of immunosuppressant medication, Antiphospholipid antibody positive * HISTONE ANTIBODY(Performed 03/17/2022) Performed for Juvenile idiopathic arthritis (HCC), Arthralgia, unspecified joint, Long-term use of immunosuppressant medication, Antiphospholipid antibody positive * CHROMATIN ANTIBODY(Performed 03/17/2022) Performed for Juvenile idiopathic arthritis (HCC), Arthralgia, unspecified joint, Long-term use of immunosuppressant medication, Antiphospholipid antibody positive * PANCHAL/NURSE RECEPTIONIST (SYMONE) ANTIBODY IGG(Performed 03/17/2022) Performed for Juvenile idiopathic arthritis (HCC), Arthralgia, unspecified joint, Long-term use of immunosuppressant medication, Antiphospholipid antibody positive * IGM BLOOD(Performed 03/17/2022) Performed for Juvenile idiopathic arthritis (HCC), Arthralgia, unspecified joint, Long-term use of immunosuppressant medication, Antiphospholipid antibody positive * IGA BLOOD(Performed 03/17/2022) Performed for Juvenile idiopathic arthritis (HCC), Arthralgia, unspecified joint, Long-term use of immunosuppressant medication, Antiphospholipid antibody positive * IGG BLOOD(Performed 03/17/2022) Performed for Juvenile idiopathic arthritis (HCC), Arthralgia, unspecified joint, Long-term use of immunosuppressant medication, Antiphospholipid antibody positive * DNA ANTIBODY DS CRITHIDIA TITER(Performed 03/17/2022) Performed for Juvenile idiopathic arthritis (HCC), Arthralgia, unspecified joint, Long-term use of immunosuppressant medication, Antiphospholipid antibody positive * COMPLEMENT C4(Performed 03/17/2022) Performed for Juvenile idiopathic arthritis (HCC), Arthralgia, unspecified joint, Long-term use of immunosuppressant medication, Antiphospholipid antibody positive * COMPLEMENT C3(Performed 03/17/2022) Performed for Juvenile idiopathic arthritis (HCC), Arthralgia, unspecified joint, Long-term use of immunosuppressant medication, Antiphospholipid antibody positive * URINALYSIS W/MICROSCOPIC NO CULTURE(Performed 03/17/2022) Performed for Juvenile idiopathic arthritis (HCC), Arthralgia, unspecified joint, Long-term use of immunosuppressant medication, Antiphospholipid antibody positive * CBC W AUTO DIFFERENTIAL(Performed 03/17/2022) Performed for Juvenile idiopathic arthritis (HCC), Arthralgia, unspecified joint, Long-term use of immunosuppressant medication, Antiphospholipid antibody positive * ERYTHROCYTE SEDIMENTATION RATE(Performed 03/17/2022) Performed for Juvenile idiopathic arthritis (HCC), Arthralgia, unspecified joint, Long-term use of immunosuppressant medication, Antiphospholipid antibody positive * C-REACTIVE PROTEIN(Performed 03/17/2022) Performed for Juvenile idiopathic arthritis (HCC), Arthralgia, unspecified joint, Long-term use of immunosuppressant medication, Antiphospholipid antibody positive * COMPREHENSIVE METABOLIC PANEL(Performed 03/17/2022) Performed for Juvenile idiopathic arthritis (HCC), Arthralgia, unspecified joint, Long-term use of immunosuppressant medication, Antiphospholipid antibody positive * IMAGING/RADIOLOGY/XRAY RESULTS ORDER(Performed 11/15/2021) * URINALYSIS W/MICROSCOPIC NO CULTURE(Performed 11/04/2021) Performed for High risk medication use, Liver nodule, Juvenile idiopathic arthritis (HCC), Arthralgia, unspecified joint, Long-term use of immunosuppressant medication * DIFFERENTIAL MANUAL(Performed 11/04/2021) Performed for High risk medication use, Liver nodule, Juvenile idiopathic arthritis (HCC), Arthralgia, unspecified joint, Long-term use of immunosuppressant medication * QUANTIFERON-TB GOLD PLUS 4-TUBE(Performed 11/04/2021) Performed for High risk medication use, Liver nodule, Juvenile idiopathic arthritis (HCC), Arthralgia, unspecified joint, Long-term use of immunosuppressant medication * COMPREHENSIVE METABOLIC PANEL(Performed 11/04/2021) Performed for High risk medication use, Liver nodule, Juvenile idiopathic arthritis (HCC), Arthralgia, unspecified joint, Long-term use of immunosuppressant medication * CBC W AUTO DIFFERENTIAL(Performed 11/04/2021) Performed for High risk medication use, Liver nodule, Juvenile idiopathic arthritis (HCC), Arthralgia, unspecified joint, Long-term use of immunosuppressant medication * ERYTHROCYTE SEDIMENTATION RATE(Performed 11/04/2021) Performed for High risk medication use, Liver nodule, Juvenile idiopathic arthritis (HCC), Arthralgia, unspecified joint, Long-term use of immunosuppressant medication * C-REACTIVE PROTEIN(Performed 11/04/2021) Performed for High risk medication use, Liver nodule, Juvenile idiopathic arthritis (HCC), Arthralgia, unspecified joint, Long-term use of immunosuppressant medication * CARDIOLIPIN ANTIBODY IGM(Performed 11/04/2021) Performed for High risk medication use, Liver nodule, Juvenile idiopathic arthritis (HCC), Arthralgia, unspecified joint, Long-term use of immunosuppressant medication * CARDIOLIPIN ANTIBODY IGG(Performed 11/04/2021) Performed for High risk medication use, Liver nodule, Juvenile idiopathic arthritis (HCC), Arthralgia, unspecified joint, Long-term use of immunosuppressant medication * CARDIOLIPIN ANTIBODY IGA(Performed 11/04/2021) Performed for High risk medication use, Liver nodule, Juvenile idiopathic arthritis (HCC), Arthralgia, unspecified joint, Long-term use of immunosuppressant medication * BETA-2 GLYCOPROTEIN 1 ANTIBODY IGA(Performed 11/04/2021) Performed for High risk medication use, Liver nodule, Juvenile idiopathic arthritis (HCC), Arthralgia, unspecified joint, Long-term use of immunosuppressant medication * HEMOGLOBIN A1C(Performed 11/04/2021) Performed for Sensory neuropathy, History of prediabetes * VITAMIN B12(Performed 11/04/2021) Performed for Sensory neuropathy * EMG WITH NERVE CONDUCTION STUDY(Performed 09/24/2021) Performed for Sensory neuropathy, Entrapment neuropathy * C-REACTIVE PROTEIN(Performed 09/09/2021) * CBC W AUTO DIFFERENTIAL(Performed 09/09/2021) * URINALYSIS W/MICROSCOPIC REFLEX TO CULTURE(Performed 09/09/2021) * ERYTHROCYTE SEDIMENTATION RATE(Performed 09/09/2021) * COMPREHENSIVE METABOLIC PANEL(Performed 09/09/2021) * CULTURE URINE REFLEXED III(Performed 09/09/2021) * LAB RESULTS ORDER(Performed 01/22/2021) * LAB RESULTS ORDER(Performed 01/08/2021) * XR ANKLE LEFT 2VW(Performed 08/31/2020) Performed for Need for influenza vaccination, Arthritis, High risk medication use, On prednisone therapy * XR FOOT RIGHT 2VW(Performed 08/31/2020) Performed for Need for influenza vaccination, Arthritis, High risk medication use, On prednisone therapy * XR FOOT LEFT 2VW(Performed 08/31/2020) Performed for Need for influenza vaccination, Arthritis, High risk medication use, On prednisone therapy * XR HAND RIGHT 2VW(Performed 08/31/2020) Performed for Need for influenza vaccination, Arthritis, High risk medication use, On prednisone therapy * XR HAND LEFT 2VW(Performed 08/31/2020) Performed for Need for influenza vaccination, Arthritis, High risk medication use, On prednisone therapy * XR ANKLE RIGHT 2VW(Performed 08/31/2020) Performed for Need for influenza vaccination, Arthritis, High risk medication use, On prednisone therapy * CYTOPLASMIC PATTERN(Performed 08/31/2020) Performed for Need for influenza vaccination, Arthritis, High risk medication use, On prednisone therapy * REF LAB-SPECIMEN STATUS REPORT(Performed 08/31/2020) Performed for Need for influenza vaccination, Arthritis, High risk medication use, On prednisone therapy * DIFFERENTIAL MANUAL(Performed 08/31/2020) Performed for Need for influenza vaccination, Arthritis, High risk medication use, On prednisone therapy * CYCLIC CITRUL PEPTIDE ANTIBODY IGG/IGA (CCP)(Performed 08/31/2020) Performed for Need for influenza vaccination, Arthritis, High risk medication use, On prednisone therapy * RHEUMATOID FACTOR BLOOD QUANTITATIVE(Performed 08/31/2020) Performed for Need for influenza vaccination, Arthritis, High risk medication use, On prednisone therapy * IGM BLOOD(Performed 08/31/2020) Performed for Need for influenza vaccination, Arthritis, High risk medication use, On prednisone therapy * IGG BLOOD(Performed 08/31/2020) Performed for Need for influenza vaccination, Arthritis, High risk medication use, On prednisone therapy * IGA BLOOD(Performed 08/31/2020) Performed for Need for influenza vaccination, Arthritis, High risk medication use, On prednisone therapy * CARDIOLIPIN ANTIBODY IGM(Performed 08/31/2020) Performed for Need for influenza vaccination, Arthritis, High risk medication use, On prednisone therapy * CARDIOLIPIN ANTIBODY IGG(Performed 08/31/2020) Performed for Need for influenza vaccination, Arthritis, High risk medication use, On prednisone therapy * CARDIOLIPIN ANTIBODY IGA(Performed 08/31/2020) Performed for Need for influenza vaccination, Arthritis, High risk medication use, On prednisone therapy * BETA-2 GLYCOPROTEIN 1 ANTIBODY IGA(Performed 08/31/2020) Performed for Need for influenza vaccination, Arthritis, High risk medication use, On prednisone therapy * HISTONE ANTIBODY(Performed 08/31/2020) Performed for Need for influenza vaccination, Arthritis, High risk medication use, On prednisone therapy * DNA ANTIBODY DS CRITHIDIA TITER(Performed 08/31/2020) Performed for Need for influenza vaccination, Arthritis, High risk medication use, On prednisone therapy * CHROMATIN ANTIBODY(Performed 08/31/2020) Performed for Need for influenza vaccination, Arthritis, High risk medication use, On prednisone therapy * ELLEN BLOOD SCREEN W/REFLEX TITER(Performed 08/31/2020) Performed for Need for influenza vaccination, Arthritis, High risk medication use, On prednisone therapy * PANCHAL (SM) ANTIBODY SYMONE(Performed 08/31/2020) Performed for Need for influenza vaccination, Arthritis, High risk medication use, On prednisone therapy * PANCHAL/NURSE RECEPTIONIST (SYMONE) ANTIBODY IGG(Performed 08/31/2020) Performed for Need for influenza vaccination, Arthritis, High risk medication use, On prednisone therapy * SS-B (SJOGREN'S) ANTIBODY(Performed 08/31/2020) Performed for Need for influenza vaccination, Arthritis, High risk medication use, On prednisone therapy * COMPLEMENT C4(Performed 08/31/2020) Performed for Need for influenza vaccination, Arthritis, High risk medication use, On prednisone therapy * COMPLEMENT C3(Performed 08/31/2020) Performed for Need for influenza vaccination, Arthritis, High risk medication use, On prednisone therapy * VITAMIN D 25-HYDROXY(Performed 08/31/2020) Performed for Need for influenza vaccination, Arthritis, High risk medication use, On prednisone therapy * THYROGLOBULIN ANTIBODY(Performed 08/31/2020) Performed for Need for influenza vaccination, Arthritis, High risk medication use, On prednisone therapy * THYROID PEROXIDASE ANTIBODY(Performed 08/31/2020) Performed for Need for influenza vaccination, Arthritis, High risk medication use, On prednisone therapy * CK BLOOD(Performed 08/31/2020) Performed for Need for influenza vaccination, Arthritis, High risk medication use, On prednisone therapy * ALDOLASE(Performed 08/31/2020) Performed for Need for influenza vaccination, Arthritis, High risk medication use, On prednisone therapy * LDH BLOOD(Performed 08/31/2020) Performed for Need for influenza vaccination, Arthritis, High risk medication use, On prednisone therapy * C-REACTIVE PROTEIN(Performed 08/31/2020) Performed for Need for influenza vaccination, Arthritis, High risk medication use, On prednisone therapy * CBC W AUTO DIFFERENTIAL(Performed 08/31/2020) Performed for Need for influenza vaccination, Arthritis, High risk medication use, On prednisone therapy * ERYTHROCYTE SEDIMENTATION RATE(Performed 08/31/2020) Performed for Need for influenza vaccination, Arthritis, High risk medication use, On prednisone therapy * COMPREHENSIVE METABOLIC PANEL(Performed 08/31/2020) Performed for Need for influenza vaccination, Arthritis, High risk medication use, On prednisone therapy * CARDIAC EKG ORDER(Performed 11/29/2019) * XR CHEST 1VW PORTABLE(Performed 11/26/2019) Performed for Lumbar pain * XR SHOULDER LEFT 2VW OR MORE(Performed 11/26/2019) Performed for Lumbar pain * XR SHOULDER RIGHT 2VW OR MORE(Performed 11/26/2019) Performed for Lumbar pain * CT LUMBAR SPINE WO CONTRAST(Performed 11/26/2019) Performed for Lumbar pain * D-DIMER(Performed 11/26/2019) * TROPONIN I(Performed 11/26/2019) * ERYTHROCYTE SEDIMENTATION RATE(Performed 11/26/2019) * COMPREHENSIVE METABOLIC PANEL(Performed 11/26/2019) * CBC W AUTO DIFFERENTIAL(Performed 11/26/2019) * EKG 12-LEAD(Performed 11/26/2019) Performed for Lumbar pain * DRUG ABUSE URINE SCREEN 10(Performed 11/17/2019) Performed for Chronic narcotic use * HOME SLEEP STUDY(Performed 11/16/2019) Performed for Other insomnia * CBC W AUTO DIFFERENTIAL(Performed 11/01/2019) Performed for Screening for diabetes mellitus * TSH(Performed 11/01/2019) Performed for Screening for hypothyroidism * LIPID PROFILE(Performed 11/01/2019) Performed for Screening for hyperlipidemia * COMPREHENSIVE METABOLIC PANEL(Performed 11/01/2019) Performed for Screening for diabetes mellitus * AMYLASE BLOOD(Performed 11/01/2019) Performed for Chronic pancreatitis, unspecified pancreatitis type (HCC) * LIPASE BLOOD(Performed 11/01/2019) Performed for Chronic pancreatitis, unspecified pancreatitis type (HCC) * HEMOGLOBIN A1C(Performed 11/01/2019) Performed for Screening for diabetes mellitus * LAB MISC TEST(Performed 04/13/2019) Performed for Low back pain, unspecified back pain laterality, unspecified chronicity, with sciatica presence unspecified * LAB MISC TEST(Performed 04/13/2019) Performed for Low back pain, unspecified back pain laterality, unspecified chronicity, with sciatica presence unspecified * XR KNEE LEFT 4VW OR MORE(Performed 04/13/2019) 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 * XR LUMBAR SPINE 2 OR 3VW(Performed 04/13/2019) 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 * XR THORACIC SPINE 2VW(Performed 04/13/2019) Performed for Thoracic back pain, unspecified back pain laterality, unspecified chronicity * XR KNEE RIGHT 4VW OR MORE(Performed 04/13/2019) Performed for Thoracic back pain, unspecified back pain laterality, unspecified chronicity * LAB RESULTS ORDER(Performed 04/05/2019) * LAB HISTORICAL RESULTS-ONBASE(Performed 10/14/2017) * THYROID PEROXIDASE ANTIBODY(Performed 01/28/2017) * T4 FREE(Performed 01/28/2017) * TSH(Performed 01/28/2017) * US SOFT TISSUE HEAD NECK(Performed 08/05/2016) * TSH+FREE T4 PANEL(Performed 07/29/2016) * LIPID PROFILE(Performed 07/29/2016) * CBC W/O DIFFERENTIAL(Performed 07/29/2016) * COMPREHENSIVE METABOLIC PANEL(Performed 07/29/2016) * CBC W AUTO DIFFERENTIAL(Performed 02/02/2013) * LDH BLOOD(Performed 02/02/2013) * COMPREHENSIVE METABOLIC PANEL(Performed 02/02/2013) * IGM BLOOD(Performed 08/04/2012) * IGG BLOOD(Performed 08/04/2012) * IGA BLOOD(Performed 08/04/2012) * LDH BLOOD(Performed 08/04/2012) * COMPREHENSIVE METABOLIC PANEL(Performed 08/04/2012) * CBC W AUTO DIFFERENTIAL(Performed 08/04/2012) * LAB HISTORICAL RESULTS-ONBASE(Performed 05/05/2012) * LAB HISTORICAL RESULTS-ONBASE(Performed 05/05/2012) * COMPREHENSIVE METABOLIC PANEL(Performed 05/05/2012) * CBC W AUTO DIFFERENTIAL(Performed 05/05/2012) * RETIC COUNT(Performed 03/31/2012) * CBC W AUTO DIFFERENTIAL(Performed 03/31/2012) * LDH BLOOD(Performed 03/31/2012) * COMPREHENSIVE METABOLIC PANEL(Performed 03/31/2012) * LAB MICROBIOLOGY - HPF HISTORICAL(Performed 03/10/2012) * CHROMOSOME ANALYSIS TISSUE PANEL(Performed 03/09/2012) * CHROMOSOME ANALYSIS TISSUE PANEL(Performed 03/09/2012) * PATHOLOGY REPORTS - [facility] HISTORICAL(Performed 02/22/2012) * CBC W AUTO DIFFERENTIAL(Performed 02/18/2012) * COMPREHENSIVE METABOLIC PANEL(Performed 02/18/2012) * LAB HISTORICAL RESULTS-ONBASE(Performed 02/18/2012) * PATHOLOGY/GENETICS HISTORICAL-ONBASE(Performed 02/04/2012) * CHROMOSOME ANALYSIS BONE MARROW PANEL(Performed 01/08/2012) * PATHOLOGY/GENETICS HISTORICAL-ONBASE(Performed 01/08/2012) * HAPTOGLOBIN(Performed 01/05/2012) * RETIC COUNT(Performed 01/05/2012) * CBC W AUTO DIFFERENTIAL(Performed 01/05/2012) * LDH BLOOD(Performed 01/05/2012) * LDH BLOOD(Performed 12/31/2011) * COMPREHENSIVE METABOLIC PANEL(Performed 12/31/2011) * RETIC COUNT(Performed 12/31/2011) * CBC W AUTO DIFFERENTIAL(Performed 12/31/2011) * ERYTHROCYTE SEDIMENTATION RATE(Performed 12/31/2011) * LAMBDA LIGHT CHAINS FREE(Performed 12/17/2011) * KAPPA/LAMBDA LITE CHAIN FREE PANEL(Performed 12/17/2011) * IMMUNOFIXATION BLOOD(Performed 12/17/2011) * PROTEIN ELECTROPHORESIS WO INTERP BLOOD(Performed 12/17/2011) * IGM BLOOD(Performed 12/17/2011) * IGG BLOOD(Performed 12/17/2011) * IGA BLOOD(Performed 12/17/2011) * FERRITIN(Performed 12/17/2011) * TRANSFERRIN(Performed 12/17/2011) * IRON BLOOD(Performed 12/17/2011) * HAPTOGLOBIN(Performed 12/17/2011) * RETIC COUNT(Performed 12/17/2011) * CBC W AUTO DIFFERENTIAL(Performed 12/17/2011) * COMPREHENSIVE METABOLIC PANEL(Performed 12/17/2011) * FOLATE(Performed 12/17/2011) * VITAMIN B12(Performed 12/17/2011) * LDH BLOOD(Performed 12/17/2011) Results * (ABNORMAL) KAPPA/LAMBDA LITE CHAIN FREE PANEL (04/28/2024 4:18 PM CDT) Only the most recent of2 resultswithin the time period is included. [place] Quant Free Light Chain 24.08(H) 3.30 - 19.40 mg/L 04/30/2024 10:24 PM CDT [facility] ([facility]) Comment: INTERPRETIVE INFORMATION: [place] Qnt Free Light Chains Undetected antigen excess is a rare event but cannot be excluded. Free light chain results should always be interpreted in conjunction with other clinical and laboratory findings. Lambda Free Light Chain Quantitative 18.92 5.71 - 26.30 mg/L 04/30/2024 10:24 PM CDT [facility] ([facility]) Comment: INTERPRETIVE INFORMATION: Lambda Qnt Free Light Chains Undetected antigen excess is a rare event but cannot be excluded. Free light chain results should always be interpreted in conjunction with other clinical and laboratory findings. [place]/Lambda Free Light Chain ratio 1.27 0.26 - 1.65 04/30/2024 10:24 PM CDT [facility] ([facility]) Comment: Performed By: [employer] [address] [place] [address] War[employer] Knitter Helper: Bladimir Levy MD, PhD CLIA Number: [id number] Blood BLOOD SPECIMEN / Unknown Lab Venipuncture / Unknown 04/28/2024 4:18 PM CDT 04/28/2024 4:44 PM CDT Dulce Maria Morales MD LAB - CHEMISTRY VIANEY LAMB [facility]) [address] [place] [address], [facility] * (ABNORMAL) DIFFERENTIAL MANUAL (04/28/2024 4:18 PM CDT) Only the most recent of5 resultswithin the time period is included. Pathologist [facility] Neutrophil % 65 41 - 74 % 04/28/2024 5:32 PM CDT [facility] Lymphocyte % 27 17 - 47 % 04/28/2024 5:32 PM CDT [facility] Monocyte % 5 3 - 11 % 04/28/2024 5:32 PM CDT [facility] Eosinophil % 3 0 - 7 % 04/28/2024 5:32 PM CDT [facility] Neutrophil Absolute 9.75(H) 1.60 - 7.50 x10E9/L 04/28/2024 5:32 PM CDT [facility] Lymphocyte Absolute 4.05 1.00 - 4.40 x10E9/L 04/28/2024 5:32 PM CDT [facility] Monocyte Absolute 0.75 0.15 - 1.00 x10E9/L 04/28/2024 5:32 PM CDT [facility] Eosinophil Absolute 0.45 0.00 - 0.60 x10E9/L 04/28/2024 5:32 PM CDT [facility] RBC Morphology NORMAL 04/28/2024 5:32 PM T [facility] Blood BLOOD SPECIMEN / Unknown Lab Venipuncture / Unknown 04/28/2024 4:18 PM CDT 04/28/2024 4:55 PM CDT Dulce Maria Morales MD LAB - HEMATOLOGY ORD ERABLES [address] [address], [facility] [phone] * (ABNORMAL) CBC WITH DIFFERENTIAL (04/28/2024 4:18 PM CDT) Only the most recent of17 resultswithin the time period is included. Pathologist [facility] WBC 15.0(H) 4.0 - 10.7 x10E9/L 04/28/2024 5:32 PM CDT [facility] RBC Count 4.55 3.90 - 5.20 x10E12/L 04/28/2024 5:32 PM [facility] Hemoglobin 13.2 11.9 - 15.8 g/dL 04/28/2024 5:32 PM [facility] Hematocrit 41.1 34.8 - 46.1 % 04/28/2024 5:32 PM [facility] MCV 90.3 80.0 - 98.0 fL 04/28/2024 5:32 PM [facility] MCH 29.0 26.7 - 33.6 pg 04/28/2024 5:32 PM [facility] MCHC 32.1 31.7 - 36.3 g/dL 04/28/2024 5:32 PM [facility] RDW-CV 15.9(H) 11.3 - 14.8 % 04/28/2024 5:32 PM [facility] Platelet Count 452(H) 150 - 420 x10E9/L 04/28/2024 5:32 PM [facility] MPV 11.9(H) 7.8 - 11.4 fL 04/28/2024 5:32 PM [facility] Blood BLOOD SPECIMEN / Unknown Lab Venipuncture / Unknown 04/28/2024 4:18 PM CDT 04/28/2024 4:55 PM CDT Dulce Maria Morales MD LAB - HEMATOLOGY ORD ERABLES Performing Organization Address City/[facility] Co de Phone Number [address] [address], [facility] [phone] * COMPLEMENT C4 (04/28/2024 4:18 PM CDT) Only the most recent of4 resultswithin the time period is included. Complement C4 29 15 - 57 mg/dL 04/28/2024 5:32 PM CDT [facility] Blood BLOOD SPECIMEN / Unknown Lab Venipuncture / Unknown 04/28/2024 4:18 PM CDT 04/28/2024 4:55 PM CDT Dulce Maria Morales MD LAB - SEROLOGY ORDER DARSHAN [facility] [address] [place] [address], [facility] [phone] * (ABNORMAL) COMPREHENSIVE METABOLIC PANEL (04/28/2024 4:18 PM [facility]) Only the most recent of16 resultswithin the time period is included. BUN 8 7 - 26 mg/dL 04/28/2024 5:32 PM [facility] Creatinine 0.74 0.56 - 0.96 mg/dL 04/28/2024 5:32 PM [facility] Sodium 139 136 - 145 mmol/L 04/28/2024 5:32 PM [facility] Potassium 3.8 3.5 - 4.5 mmol/L 04/28/2024 5:32 PM [facility] Chloride 104 98 - 107 mmol/L 04/28/2024 5:32 PM [facility] CO2 25 22 - 29 mmol/L 04/28/2024 5:32 PM [facility] Glucose 90 70 - 115 mg/dL 04/28/2024 5:32 PM [facility] Calcium 9.4 8.4 - 10.2 mg/dL 04/28/2024 5:32 PM [facility] Protein Total 6.7 6.0 - 8.3 g/dL 04/28/2024 5:32 PM [facility] Albumin 3.1(L) 3.4 - 5.0 g/dL 04/28/2024 5:32 PM [facility] Bilirubin Total 0.2 0.2 - 1.2 mg/dL 04/28/2024 5:32 PM [facility] Alkaline Phosphatase 186(H) 40 - 150 U/L 04/28/2024 5:32 PM [facility] ALT 20 5 - 55 U/L 04/28/2024 5:32 PM [facility] AST 14 5 - 34 U/L 04/28/2024 5:32 PM [facility] Anion Gap 10 6 - 16 04/28/2024 5:32 PM [facility] BUN/Creatinine Ratio 11 7 - 23 04/28/2024 5:32 PM CDT [facility] Osmolality Calculated 286 275 - 295 mOsm/kg 04/28/2024 5:32 PM CDT [facility] Albumin/Globulin Ratio 0.9(L) 1.1 - 2.3 04/28/2024 5:32 PM CDT [facility] eGFR by CKD-EPI >90 >=90 mL/min/1.7 3 m2 04/28/2024 5:32 PM CDT [facility] Blood BLOOD SPECIMEN / Unknown Lab Venipuncture / Unknown 04/28/2024 4:18 PM CDT 04/28/2024 4:55 PM CDT Dulce Maria Morales MD LAB - CHEMISTRY VIANEY LAMB Performing Organization Address City/[facility]/ZIP Co de Phone Number [facility] [address] [place] [address], [place] [phone] * IMMUNOGLOBULINS IGG/IGM/IGA PANEL (04/28/2024 4:18 PM CDT) Only the most recent of2 resultswithin the time period is included. IgG 906 767 - 1,590 mg/dL 04/28/2024 5:35 PM CDT [facility] IgM 89 37 - 286 mg/dL 04/28/2024 5:35 PM CDT [facility] IgA 239 61 - 356 mg/dL 04/28/2024 5:35 PM CDT [facility] Blood BLOOD SPECIMEN / Unknown Lab Venipuncture / Unknown 04/28/2024 4:18 PM CDT 04/28/2024 4:44 PM CDT Dulce Maria Morales MD LAB - CHEMISTRY VIANEY LAMB [facility] [address] [place] [phone], [place] [phone] * (ABNORMAL) PROTEIN ELECTROPHORESIS BLOOD (04/28/2024 4:18 PM CDT) Only the most recent of2 resultswithin the time period is included. Interpretation Serum PE Normal Pattern Normal Pattern 05/05/2024 3:30 PM CDT [facility] Comment: Serum capillary electrophoresis shows characteristic bands corresponding to albumin, alpha and beta globulins and polyclonal immunoglobulins. No monoclonal immunoglobulin detected. Non-secretory myeloma (NSM) and light chain only myeloma cannot be excluded based on this result. Recommend serum free light chain measurements for complete evaluation of plasma cell disorders. Yanira Rodriguez MD Attending Physician Department of Pathology Transfusion Medicine *The electrophoresis pattern and the interpretation have been reviewed and verified by the teaching physician. Protein Total 6.2 6.0 - 8.3 g/dL 05/05/2024 3:30 PM T [facility] Albumin 3.1(L) 3.3 - 5.6 g/dL 05/05/2024 3:30 PM CDT [facility] Alpha-1 Globulins 0.3 0.2 - 0.4 g/dL 05/05/2024 3:30 PM CDT [facility] Alpha-2 Globulins 1.1(H) 0.5 - 1.0 g/dL 05/05/2024 3:30 PM CDT [facility] Beta Globulins 0.9 0.6 - 1.1 g/dL 05/05/2024 3:30 PM CDT [facility] Gamma Globulins 0.8 0.6 - 1.6 g/dL 05/05/2024 3:30 PM CDT [facility] Interpretation Comments Serum PE COMMENT 05/05/2024 3:30 PM CDT [facility] Blood BLOOD SPECIMEN / Unknown Lab Venipuncture / Unknown 04/28/2024 4:18 PM CDT 04/28/2024 4:44 PM CDT Dulce Maria Morales MD LAB - CHEMISTRY VIANEY LAMB [facility] Organization Address City/State/ZIP Co de Phone Number [facility] [address] [place] [phone], [facility] [phone] * COMPLEMENT C3 (04/28/2024 4:18 PM CDT) Only the most recent of4 resultswithin the time period is included. Complement C3 153 82 - 193 mg/dL 04/28/2024 5:32 PM CDT [facility] Blood BLOOD SPECIMEN / Unknown Lab Venipuncture / Unknown 04/28/2024 4:18 PM CDT 04/28/2024 4:55 PM CDT Dulce Maria Morales MD LAB - CHEMISTRY VIANEY Mendiola Organization Address City/[facility]/ZIP Co de Phone Number [facility] [address] [place] [address], [facility] [phone] * (ABNORMAL) URINALYSIS W/MICROSCOPIC REFLEX TO CULTURE (09/24/2023 3:12 PM CDT) Only the most recent of3 resultswithin the time period is included. Color UA Debo(A) Straw, Yellow 09/24/2023 3:59 PM T [facility] Clarity UA Slt Cloudy(A) Clear 09/24/2023 3:59 PM T [facility] Specific Hulbert UA 1.034(H) 1.005 - 1.030 09/24/2023 3:59 PM [facility] pH UA 5.0 5.0 - 8.0 pH 09/24/2023 3:59 PM T [facility] Protein UA 2+(A) Negative 09/24/2023 3:59 PM [facility] Glucose UA Negative Negative 09/24/2023 3:59 PM [facility] Ketone UA Negative Negative 09/24/2023 3:59 PM T [facility] Bilirubin UA Negative Negative 09/24/2023 3:59 PM T [facility] Blood UA Negative Negative 09/24/2023 3:59 PM [facility] Nitrite UA Negative Negative 09/24/2023 3:59 PM [facility] Leukocyte Esterase Negative Negative 09/24/2023 3:59 PM [facility] Urobilinogen UA Negative Negative mg/dL 09/24/2023 3:59 PM [facility] RBC UA 0-2 None Seen, 0-2, 3-5 /HPF 09/24/2023 3:59 PM T [facility] WBC UA 0-5 None Seen, 0-5 /HPF 09/24/2023 3:59 PM CDT [facility] Squamous Epithelial Cells UA 0-2 None Seen, 0-2, 3-5 /HPF 09/24/2023 3:59 PM CDT [facility] Mucus UA 2+ /LPF 09/24/2023 3:59 PM CDT [facility] Urine URINE SPECIMEN OBTAINED BY CLEAN CATCH PROCEDURE / Unknown Collection / Unknown 09/24/2023 3:12 PM CDT 09/24/2023 3:46 PM CDT Narrative [facility] - 09/24/2023 3:59 PM CDT Culture Not Indicated Dulce Maria Morales MD LAB - URINALYSIS ORD ERABLES Performing Organization Address City/[facility]/ZIP Co de Phone Number [address] [address], [place] [phone] * (ABNORMAL) PROTEIN CREATININE RATIO URINE RANDOM PNL (09/24/2023 3:12 PM CDT) Only the most recent of2 resultswithin the time period is included. Protein Urine 27 Not Established mg/dL 09/24/2023 4:25 PM CDT [facility] Creatinine Urine 253.10 Not Established mg/dL 09/24/2023 4:25 PM CDT [facility] Protein/Creati nine Ratio Urine 0.11(H) <0.10 09/24/2023 4:25 PM CDT [facility] Urine URINE SPECIMEN OBTAINED BY CLEAN CATCH PROCEDURE / Unknown Collection / Unknown 09/24/2023 3:12 PM CDT 09/24/2023 3:51 PM CDT Dulce Maria Morales MD LAB - URINE CHEMISTR Y ORDERABLES [address] [address], [place] [phone] * (ABNORMAL) HEPATIC FUNCTION PANEL (09/24/2023 3:07 PM CDT) Protein Total 7.3 6.0 - 8.3 g/dL 023 4:27 PM [facility] Albumin 3.4 3.4 - 5.0 g/dL 09/24/2023 4:27 PM [facility] Bilirubin Total 0.4 0.2 - 1.2 mg/dL 08/31 4:27 PM [facility] Bilirubin Conjugated 0.2 0.1 - 0.5 mg/dL 09/24/2023 4:27 PM [facility] Bilirubin Unconjugated 0.2 Unconjugated Bilirubin is a calculated value: Reference ranges have not been established. mg/dL 09/24/2023 4:27 PM [facility] Alkaline Phosphatase 175(H) 40 - 150 U/L 09/24/2023 4:27 PM [facility] ALT 31 5 - 55 U/L 09/24/2023 4:27 PM [facility] AST 23 5 - 34 U/L 09/24/2023 4:27 PM [facility] Albumin/Globulin Ratio 0.9(L) 1.1 - 2.3 09/24/2023 4:27 PM [facility] Blood BLOOD SPECIMEN / Unknown Lab Venipuncture / Unknown 09/24/2023 3:07 PM CDT 09/24/2023 3:52 PM CDT Dulce Maria Morales MD LAB - CHEMISTRY [facility]ANEY [facility] Organization Address City/State/ZIP Co de Phone Number [facility] [address] [place] [address], [facility] [phone] * (ABNORMAL) CREATININE BLOOD (09/24/2023 3:07 PM CDT) Creatinine 0.83 0.56 - 0.96 mg/dL 09/24/2023 4:25 PM [facility] eGFR by CKD-EPI 88(L) >=90 mL/min/1.7 3 m2 09/24/2023 4:25 PM T [facility] Blood BLOOD SPECIMEN / Unknown Lab Venipuncture / Unknown 09/24/2023 3:07 PM CDT 09/24/2023 3:52 PM CDT Dulce Maria Morales MD LAB - CHEMISTRY VIANEY LAMB [facility] Organization Address City/State/ZIP Co de Phone Number [address] [address], [facility] [phone] * [place] DRAIN/INJECT LARGE JOINT/BURSA (04/29/2023 8:53 AM CDT) Narrative Yanira Marin MD - 04/29/2023 8:53 AM CDT Yanira Marin MD 04/29/2023 8:54 AM After informed verbal consent was obtained, the right knee was prepped with betadine and alcohol. 5cc's of 1% Lidocaine without epinephrine was used to infiltrate the skin and soft tissues leading up to the joint capsule from the superolateral aspect of the knee. Once the needle popped through the joint capsule, an injection consisting of 1cc of Kenalog 40ml/mg + 2 cc's of 0.5% Ropivacaine was injected into the knee joint. The patient tolerated the procedure well without complication. Post-injections instructions were given. Yanira Marin MD PROCEDURE/MINOR SURG ICAL ORDERABLES * XR KNEE RIGHT 4VW OR MORE (04/24/2023 2:05 PM CDT) Only the most recent of2 resultswithin the time period is included. Anatomical Region Laterality Modality Lower Extremity Radiographic Isha ging 04/24/2023 2:08 PM CDT Impressions 04/24/2023 2:48 PM CDT Impression: Mild osteoarthritis. Report dictated by Giovanni Smith MD (associate professor of radiology). I, Caden Morales MD have personally reviewed and interpreted this examination/study. > Interpreting Provider: Caden Morales MD on 04/24/2023 2:48 PM Narrative 04/24/2023 2:48 PM CDT PROCEDURE: XR KNEE RIGHT 4VW OR MORE, DATE/TIME OF EXAM: 04/24/2023 2:06 PM, LOCATION [facility] INDICATION: M25.561: Right knee pain, unspecified chronicity COMPARISON: None. FINDINGS: The osseous structures are intact and well aligned without acute fracture or dislocation. Postsurgical changes of prior internal fixation of a healed distal femoral fracture with an intramedullary nail and a single interlocking distal screw, intact and without signs of loosening. Mild medial compartment joint space narrowing. Small patellar osteophyte. A small suprapatellar joint effusion is seen. Procedure Note Caden Morales MD - 04/24/2023 PROCEDURE: XR KNEE RIGHT 4VW OR MORE, DATE/TIME OF EXAM: 32:06 PM, LOCATION [facility] INDICATION: M25.561: Right knee pain, unspecified chronicity COMPARISON: None. FINDINGS: The osseous structures are intact and well aligned without acutefracture or dislocation. Postsurgical changes of prior internal fixation of ahealed distal femoral fracture with an intramedullary nail and a single interlocking distal screw, intact and without signs of loosening. Mild medial compartment joint space narrowing. Small patellar osteophyte. A small suprapatellar joint effusion is seen. Impression: Mild osteoarthritis. Report dictated by Giovanni Smith MD (associate professor of radiology). I, Caden Morales MD have personally reviewed and interpreted this examination/study. > Interpreting Provider: Caden Morales MD on 04/24/2023 2:48 PM Yanira Marin MD DIAGNOSTIC IMAGING O RDERABLES * RHEUMATOID FACTOR BLOOD QUANTITATIVE (03/26/2023 4:02 PM CDT) Only the most recent of2 resultswithin the time period is included. Rheumatoid Factor <15 <30 IU/mL 03/26/2023 4:50 PM CDT [facility] Rheumatoid Factor Screen Negative Negative 03/26/2023 4:50 PM CDT [facility] Blood BLOOD SPECIMEN / Unknown Lab Venipuncture / Unknown 03/26/2023 4:02 PM CDT 03/26/2023 4:24 PM CDT Dulce Maria Morales MD LAB - CHEMISTRY VIANEY LAMB [address] [address], [facility] [phone] * Color fundus photography (11/03/2022 9:30 AM DOPE MIXER) Anatomical Region Laterality Modality Other 11/03/2022 9:30 AM DOPE M[employer]ER Julio Cesar Jolly MD OPHTHALMOLOGY SERVIC ES ORDERABLES * Visual Bhatt (11/03/2022 9:23 AM DOPE MIXER) Anatomical Region Laterality Modality Other 11/03/2022 9:23 AM DOPE M[employer]ER Julio Cesar Jolly MD OPHTHALMOLOGY SERVIC ES ORDERABLES * OCT (10/01/2022 10:42 AM CDT) Anatomical Region Laterality Modality Other 10/01/2022 10:4 2 AM CDT Julio Cesar Jolly MD OPHTHALMOLOGY SERVIC ES ORDERABLES * PATHOLOGY TISSUE (08/19/2022 9:27 AM CDT) Case Report Surgical Pathology Report Case: [id number] Authorizing Provider: Asael Bowen MD Collected: 08/19/2022 09:27 AM Ordering Location: [facility] Otolaryngology Received: 08/19/2022 01:35 PM Pathologist: Melina Aldrich MD Specimen: Lip Biopsy 08/20/2022 2:25 PM CDT [facility] Final Diagnosis Lip, biopsy (A): - Benign salivary glands with chronic inflammation - Focus Score: 4 lymphoid aggregates per 4 mm of salivary gland tissue 08/20/2022 2:25 PM CDT [facility] Microscopic Description and Comment Microscopic sections demonstrate 4 fragments of salivary gland tissue containing four lymphoid aggregates (greater than 50 lymphocytes) per 4 mm . 08/20/2022 2:25 PM CDT [facility] Clinical History The patient is a 46-year-old female with history of salivary gland swelling, sicca symptoms, and concern for Sjogren's disease. She underwent minor salivary gland biopsy of of lip. 08/20/2022 2:25 PM CDT [facility] Gross Description The requisition and specimen(s) are identified with the patient's name Enedelia Marie. Received in formalin, specimen A , are 4 pink-brewer tissues, 0.3-0.5 cm in greatest dimension and 1.4 x 0.3 x 0.2 cm in aggregate, submitted in toto in cassette A1. DF 08/20/2022 2:[address] [facility] Disclaimer The performance characteristics of all immunohistochemical and indirect immunofluorescence stains (if any) cited in this report were determined by the Histopathology Laboratory of [facility]. Some of these tests were developed by our own laboratory and have not been cleared or approved by the US Food and Drug Administration. The FDA does not require this test to go through premarket FDA review. These tests are used for clinical purposes. They should not be regarded as investigational or for research. This laboratory is certified under the Clinical Laboratory Improvement Amendments (CLIA) as qualified to perform high complexity clinical laboratory testing. This case has been personally reviewed and interpreted by the attending (teaching) pathologist. 08/20/2022 2:[address] [facility] Embedded Images 08/20/2022 2:[address] [facility] Pathology/Cytolo gy BIOPSY OF LIP / Unknown Collection / Unknown 08/19/2022 9:27 AM CDT 08/19/2022 1:35 PM CDT Comment:Please look at focus score for Sjogren's Asael Bowen MD LAB - PATHOLOGY/C YTOLOGY ORDERABLES Performing Organization Address [facility] Co de Phone Number [facility] [address] [phone] * OH BIOPSY OF LIP (08/19/2022 9:25 AM CDT) Narrative Asael Bowen MD - 08/19/2022 9:25 AM CDT Asael Bowen MD 08/19/2022 9:53 AM Procedure: Minor Salivary Gland Biopsy Indications: Salivary gland swelling, sicca symptoms, concern for autoimmune disease Procedure in Detail: Informed consent was obtained. Lidocaine with epi was injected into the planned site of biopsy. An incision was made in the mucosa of the red lip and several minor salivary glands were removed for pathology. Hemostasis was attained with silver nitrate cautery. The incision was closed with interrupted 5-0 vicryl. The patient tolerated the procedure well. Findings: Approximately 6 minor salivary glands removed and sent for permanent pathology. For all procedures, attending was present and performed the garces portions of the procedure. Asael Bowen MD PROCEDURE/MINOR S URGICAL ORDERABLES * (ABNORMAL) URIC ACID BLOOD (07/23/2022 10:34 AM CDT) Uric Acid 6.9(H) 2.6 - 6.0 mg/dL 07/23/2022 12:16 PM CDT [facility] Blood BLOOD SPECIMEN / Unknown Lab Venipuncture / Unknown 07/23/2022 10:34 AM CDT 07/23/2022 11:44 AM CDT Dulce Maria Morales MD LAB - CHEMISTRY VIANEY LAMB [facility] Organization Address City/State/[facility] Co de Phone Number [facility] [address] [place] [address], [facility] [phone] * CT ABDOMEN PELVIS W CONTRAST (04/11/2022 1:53 PM CDT) Anatomical Region Laterality Modality Abdomen, Pelvis Computed Tomogra phy 04/11/2022 4:09 PM CDT Impressions 04/11/2022 4:25 PM CDT Impression: 1.No acute abdominal findings. 2.Incidentally noted small hypodense lesions are in the liver, likely small cysts. 3.Small cyst is noted in the relation to the head of pancreas., Possibly pancreatic cyst. 4.Some soft tissue thickening noted in the midline buttock, it shows minimal interval improvement. However, there is a newly identified linear soft tissue thickening extending from the skin to the right ischial tuberosity, likely inflammatory changes. There is associated some sclerosis of the underlying ischial tuberosity, possibility of osteitis. Correlate with the clinical data. This report was electronically signed by ARMIDA PERKINS MD, CR on 04/11/2022 4:25 PM . Narrative 04/11/2022 4:25 PM CDT Procedure Information DATE: 04/11/2022 1:53 PM EXAMINATION: Computed tomography (CT) of the abdomen and pelvis with contrast TECHNIQUE: CT of the abdomen and pelvis was performed following the uneventful administration of 100 mL of Isovue 370 intravenous contrast according to standard protocol. 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 Findings Lower Chest: Normal. Hepatobiliary: Normal morphology. Small hypodense lesion noted in the segment 7 (8 mm sized lesion-image 32 in series 3) and segment 5 (1.2 cm sized lesion-image 64 in series 3). Likely small cyst. Post cholecystectomy status. No biliary dilation is seen. Small pocket of air is noted in the bile ducts. Pancreas: An approximately 1.5 cm sized cyst is noted in relation to the head of pancreas (image 76 in series 3). In the tail of the pancreas is blunted. The pancreas is otherwise unremarkable. A few peripancreatic lymph nodes are seen in relation to the head. Pancreatic duct is nondilated. Spleen: Spleen is not identified in the splenic fossa. 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 Kidneys: Normal. Adrenals: Normal. Retroperitoneum: Normal. Peritoneum: Normal. Gastrointestinal: The stomach and visualized loops of bowel are unremarkable. Appendix: Normal. Pelvic Structures: Small rudimentary uterus is noted. Ovaries are not clearly identified. Vasculature: Scattered atherosclerotic vasculature changes. Bones: The visible osseous structures are intact. Soft tissues: Interval some improvement is noted in the previously noted soft tissue thickening in the midline back extending from the distal sacrum/coccyx to the skin. Newly developed the soft tissue thickening is seen extending from the skin to the right ischial area, likely inflammatory changes. No definite fluid collection or abscess is seen. The underlying ischial tuberosity shows some newly developed patchy sclerosis (image 118 in series 3). Incidentally noted fat-containing umbilical hernia. Small fat-containing midline anterior abdominal wall hernias are noted in the epigastric region. Procedure Note Armida Perkins MD - 04/11/2022 Procedure Information DATE: 04/11/2022 1:53 PM EXAMINATION: Computed tomography (CT) of the abdomen and pelvis with contrast TECHNIQUE: CT of the abdomen and pelvis was performed following the uneventful administration of 100 mL of Isovue 370 intravenous contrast according to standard protocol. 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 Findings Lower Chest: Normal. Hepatobiliary: Normal morphology. Small hypodense lesion noted in the segment 7 (8 mm sized lesion-image 32 in series 3) and segment 5 (1.2 cm sized lesion-image 64 in series 3). Likely small cyst. Post cholecystectomy status. No biliary dilation is seen. Small pocketof air is noted in the bile ducts. Pancreas: An approximately 1.5 cm sized cyst is noted in relation to the head of pancreas (image 76 in series 3). In the tail of the pancreas is blunted. The pancreas is otherwise unremarkable. A few peripancreatic lymph nodes are seen in relation to the head. Pancreatic duct is nondilated. Spleen: Spleen is not identified in the splenic fossa. 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 Kidneys: Normal. Adrenals: Normal. Retroperitoneum: Normal. Peritoneum: Normal. Gastrointestinal: The stomach and visualized loops of bowel are unremarkable. Appendix: Normal. Pelvic Structures: Small rudimentary uterus is noted. Ovaries are not clearly identified. Vasculature: Scattered atherosclerotic vasculature changes. Bones: The visible osseous structures are intact. Soft tissues: Interval some improvement is noted in the previously noted soft tissue thickening in the midline back extending from the distal sacrum/coccyxto the skin. Newly developed the soft tissue thickening is seen extending from theskin to the right ischial area, likely inflammatory changes. No definitefluid collection or abscess is seen. The underlying ischial tuberosity shows some newly developed patchy sclerosis (image 118 in series 3). Incidentally noted fat-containing umbilical hernia. Small fat-containing midline anterior abdominal wall hernias are noted in the epigastric region. Impression: 1.No acute abdominal findings. 2.Incidentally noted small hypodense lesions are in the liver, likely small cysts. 3.Small cyst is noted in the relation to the head of pancreas., Possibly pancreatic cyst. 4.Some soft tissue thickening noted in the midline buttock, it shows minimal interval improvement. However, there is a newly identifiedlinear soft tissue thickening extending from the skin to the right ischial tuberosity, likely inflammatory changes. There is associated some sclerosis of the underlying ischial tuberosity, possibility of osteitis. Correlate with the clinical data. This report was electronically signed by ARMIDA PERKINS MD, [facility] on 04/11/2022 4:25 PM . My Pinon MD CT ORDERABLES * BETA-2 GLYCOPROTEIN 1 ANTIBODY IGA (03/17/2022 4:30 PM CDT) Only the most recent of3 resultswithin the time period is included. Beta-2 Glycoprotein Antibody IgA <10 <=20 LE 03/21/2022 1:47 AM CDT COUNT INCLUDES THE [facility] ([facility]) Comment:Performed By: LILIAM [address] [place], [place] [address]Laboratory Director: Henrietta Grant MD Blood BLOOD SPECIMEN / Unknown Lab Venipuncture / Unknown 03/17/2022 4:30 PM CDT 03/17/2022 4:30 PM CDT My Pinon MD LAB - SEROLOGY ORDERABLES [facility]) [address] [place] [address], [facility] * (ABNORMAL) BETA-2 GLYCOPROTEIN 1 ANTIBODY IGG/IGM PANEL (03/17/2022 4:30 PM CDT) Beta-2 Glycoprotein Antibody IgG <10 <=20 SGU 03/19/2022 1:18 AM CDT [facility] [employer] ([facility]) Beta-2 Glycoprotein Antibody IgM 66(H) <=20 SMU 03/19/2022 1:18 AM CDT COUNT INCLUDES THE [facility] ([facility]) Comment: INTERPRETIVE INFORMATION: K4Vzolifpsnvil I, IgG and IgM Antibody The persistent presence of IgG and/or IgM beta 2 glycoprotein I (B2GPI) antibodies is a laboratory criterion for the diagnosis of antiphospholipid syndrome (APS). Persistence is defined as moderate or high levels of IgG and/or IgM B2GPI antibodies detected in two or more specimens drawn at least 12 weeks apart (J Throm Haemost. 2006;4:295-306). B2GPI results greater than 20 SGU (IgG) and/or SMU (IgM) are considered positive based on the cutoff values established for this test. International reference materials and consensus units for anti-B2GPI antibodies have not been established (Clin Elba Acta. 2012;413(1-2):358-60; Arthritis Rheum. 2012;64(1):1-10.); results can be variable between different commercial immunoassays and cannot be compared. Strong clinical correlation is recommended for a diagnosis of APS. Low positive IgG and IgM B2GPI antibody levels should be interpreted in light of APS-specific clinical manifestations and/or other criteria phospholipid antibody tests. Performed By: [facility] [employer] [address] [place] [address] [employer] Kn[employer] Helper: Henrietta Grant MD Blood BLOOD SPECIMEN / Unknown Lab Venipuncture / Unknown 03/17/2022 4:30 PM CDT 03/17/2022 4:30 PM CDT My Pinon MD LAB - CHEMISTRY ORDERABLES COUNT INCLUDES THE [facility] ([facility]) [address] [place] [address], [facility] * (ABNORMAL) URINALYSIS W/MICROSCOPIC NO CULTURE (03/17/2022 3:58 PM CDT) Only the most recent of2 resultswithin the time period is included. Color UA Yellow Straw, Yellow 03/17/2022 4:36 PM CDT [facility] Clarity UA Slt Cloudy(A) Clear 03/17/2022 4:36 PM CDT [facility] Specific Hulbert UA 1.017 1.005 - 1.030 03/17/2022 4:36 PM CDT [facility] pH UA 6.0 5.0 - 8.0 pH 03/17/2022 4:36 PM CDT [facility] Protein UA Negative Negative 03/17/2022 4:36 PM CDT [facility] Glucose UA Negative Negative 03/17/2022 4:36 PM CDT [facility] Ketone UA Negative Negative 03/17/2022 4:36 PM CDT [facility] Bilirubin UA Negative Negative 03/17/2022 4:36 PM CDT [facility] Blood UA Negative Negative 03/17/2022 4:36 PM CDT [facility] Nitrite UA Negative Negative 03/17/2022 4:36 PM CDT [facility] Leukocyte Esterase Negative Negative 03/17/2022 4:36 PM CDT [facility] Urobilinogen UA Negative Negative mg/dL 03/17/2022 4:36 PM CDT [facility] RBC UA 0-2 None Seen, 0-2, 3-5 /HPF 03/17/2022 4:36 PM CDT [facility] WBC UA 0-5 None Seen, 0-5 /HPF 03/17/2022 4:36 PM CDT [facility] Squamous Epithelial Cells UA 0-2 None Seen, 0-2, 3-5 /HPF 03/17/2022 4:36 PM CDT [facility] Mucus UA 1+ /LPF 03/17/2022 4:36 PM CDT [facility] Urine URINE SPECIMEN OBTAINED BY CLEAN CATCH PROCEDURE / Unknown Collection / Unknown 03/17/2022 3:58 PM CDT 03/17/2022 4:28 PM CDT Narrative [facility] - 03/17/2022 4:36 PM CDT My Pinon MD LAB - URINALYSI S ORDERABLES Performing Organization Address [facility]/State/[facility] Co de Phone Number [facility] [address] [place] [phone], [facility] [phone] * (ABNORMAL) SS-A (SJOGREN'S) 52+60 ANTIBODIES (03/17/2022 3:58 PM CDT) SS-A 52 Antibody 95(H) 0 - 40 AU/mL 03/19/2022 4:52 AM CDT [facility] ([facility]) Comment: INTERPRETIVE INFORMATION: SSA-52 (Ro52) (SYMONE) Antibody, IgG 29 AU/mL or Less ............. Negative 30 - 40 AU/mL ................ Equivocal 41 AU/mL or Greater .......... Positive SSA-52 (Ro52) and/or SSA-60 (Ro60) antibodies are associated with a diagnosis of Sjogren syndrome, systemic lupus erythematosus (SLE), and systemic sclerosis. SSA-52 antibody overlaps significantly with the major SSc-related antibodies. SSA-52 (Ro52) antibody occurs frequently in patients with inflammatory myopathies, often in the presence of interstitial lung disease. SS-A 60 Antibody 4 0 - 40 AU/mL 03/19/2022 4:52 AM CDT [facility] ([facility]) Comment: REFERENCE INTERVAL: SSA-60 (Ro60) (SYMONE) Antibody, IgG 29 AU/mL or Less ............. Negative 30 - 40 AU/mL ................ Equivocal 41 AU/mL or Greater .......... Positive Performed By: [facility] [address] [place] [address] War[employer] Knitter Helper: Henrietta Grant MD Blood BLOOD SPECIMEN / Unknown Lab Venipuncture / Unknown 03/17/2022 3:58 PM CDT 03/17/2022 4:30 PM CDT My Pinon MD LAB - CHEMISTRY ORDERABLES [facility]) [address] * (ABNORMAL) PANCHAL/NURSE RECEPTIONIST (SYMONE) ANTIBODY IGG (03/17/2022 3:58 PM CDT) Only the most recent of2 resultswithin the time period is included. Panchal/NURSE RECEPTIONIST (SYMONE) Antibody IgG 20(H) 0 - 19 Units 03/20/2022 5:57 AM CDT [facility] ([facility]) Comment: INTERPRETIVE INFORMATION: Panchal/NURSE RECEPTIONIST (SYMONE) Antibody, IgG 19 Units or Less ............. Negative 20 to 39 Units ............... Weak Positive 40 to 80 Units ............... Moderate Positive 81 Units or greater .......... Strong Positive Panchal/NURSE RECEPTIONIST antibodies are frequently seen in patients with mixed connective tissue disease (MCTD) and are also associated with other systemic autoimmune rheumatic diseases (SARDs) such as systemic lupus erythematosus (SLE), systemic sclerosis, and myositis. Antibodies targeting the Panchal/NURSE RECEPTIONIST antigenic complex also recognize Panchal antigens, therefore, the Panchal antibody response must be considered when interpreting these results. Performed By: [facility] [address] [place] [address] [employer] Kn[employer] Helper: Henrietta rGant MD Blood BLOOD SPECIMEN / Unknown Lab Venipuncture / Unknown 03/17/2022 3:58 PM CDT 03/17/2022 4:30 PM CDT My Pinon MD LAB - CHEMISTRY ORDERABLES [facility]) [address] [place] [address] * QUANTIFERON-TB GOLD PLUS 4-TUBE (03/17/2022 3:58 PM CDT) Only the most recent of2 resultswithin the time period is included. [facility] QuantiFERON NIL 0.03 IU/mL 9:54 PM CDT [facility] ([facility]) Comment:Performed By: LILIAM [place], [place] [address]Laboratory Director: Henrietta Grant MD QuantiFERON TB Gold Plus Negative Negative 03/19/2022 9:54 PM CDT [facility] ([facility]) Comment: Interpretive Data: Quantiferon TB Gold Plus Interferon gamma release is measured for specimens from each of the four collection tubes. A qualitative result (Negative, Positive, or Indeterminate) is based on interpretation of the four values, NIL, MITOGEN minus NIL (MITOGEN-NIL), TB1 minus NIL (TB1-NIL), and TB2 minus NIL (TB2-NIL). The NIL value represents nonspecific reactivity produced by the patient specimen. The MITOGEN-NIL value serves as the positive control for the patient specimen, demonstrating successful lymphocyte activity. The TB1-NIL tube specifically detects CD4+ lymphocyte reactivity, specifically stimulated by the TB1 antigens. The TB2-NIL tube detects both CD4+ and CD8+ lymphocyte reactivity, stimulated by TB2 antigens. An overall Negative result does not completely rule out TB infection. A false-positive result in the absence of other clinical evidence of TB infection is not uncommon. Refer to: Updated Guidelines for Using Interferon Gamma Release Assays to Detect Mycobacterium tuberculosis Infection --- [place], 2010 (http://www.cdc.gov/mmwr/preview/mmwrhtml/wq0042l3.htm), for more information concerning test performance in low-prevalence populations and use in occupational screening. QuantiFERON Plus TB1 Minus NIL 0.02 0.00 - 0.34 IU/mL 03/19/2022 9:54 PM CDT [facility] [employer] ([facility]) QuantiFERON Plus TB2 Minus NIL 0.03 0.00 - 0.34 IU/mL 03/19/2022 9:54 PM CDT [facility]) QuantiFERON Mitogen Minus NIL >10.00 IU/mL 03/19/2022 9:54 PM CDT [facility] [employer]) Blood BLOOD SPECIMEN / Unknown Lab Venipuncture / Unknown 03/17/2022 3:58 PM CDT 03/17/2022 4:28 PM CDT My Pinon MD LAB - CHEMISTRY ORDERABLES Performing Organization Address City/State/[facility] Co de Phone Number [facility]) [address] * CHROMATIN ANTIBODY (03/17/2022 3:58 PM CDT) Only the most recent of2 resultswithin the time period is included. [facility] Chromatin Antibody 3 0 - 19 Units 03/20/2022 9:57 PM CDT [facility] [employer] ([facility]) Comment: INTERPRETIVE INFORMATION: Chromatin Antibody, IgG 19 Units or less: Negative 20 - 60 Units: Moderate Positive 61 Units or greater: Strong Positive The presence of anti-chromatin antibodies may be useful in the diagnosis of systemic lupus erythematosus (SLE) or drug-induced lupus (DIL) and have been reported to be predictive of lupus nephritis, especially when antibody levels are high. Performed By: [facility] [address] [place] [address] War[employer] Knitter Helper: Henrietta Grant MD Blood BLOOD SPECIMEN / Unknown Lab Venipuncture / Unknown 03/17/2022 3:58 PM CDT 03/17/2022 4:30 PM CDT My Pionn MD LAB - SEROLOGY ORDERABLES [facility] [employer]) [address] [place] [address], [facility] * SMOOTH MUSCLE ANTIBODY W REFLEX TITER (03/17/2022 3:58 PM CDT) F-Actin Antibody IgG 16 0 - 19 Units 03/20/2022 1:19 AM CDT [facility] ([facility]) Comment: If F-Actin (Smooth Muscle) Antibody, IgG is negative, the Smooth Muscle Antibody titer by IFA is not performed. REFERENCE INTERVAL: F-Actin (Smooth Muscle) Antibody, IgG by STERLING 19 Units or less ....... Negative 20 - 30 Units .......... Weak Positive-Suggest repeat testing in two to three weeks with fresh specimen. 31 Units or greater..... Positive-Suggestive of autoimmune hepatitis type 1 or chronic active hepatitis. F-actin IgG antibodies have been shown to have increased sensitivity for autoimmune hepatitis (AIH) but lower specificity than smooth muscle antibodies (SMA). F-actin IgG antibodies can also be seen in SMA-negative disease controls (non-AIH), especially in patients with primary biliary cirrhosis and chronic hepatitis C infections. Some patients with AIH may be SMA-positive but negative for F-actin IgG. Consider testing for SMA by IFA if suspicion for AIH is strong. Performed By: [facility] [address] [place] [address] Warp Knitter Helper: Henrietta Grant MD Blood BLOOD SPECIMEN / Unknown Lab Venipuncture / Unknown 03/17/2022 3:58 PM CDT 03/17/2022 4:30 PM CDT My Pinon MD LAB - SEROLOGY ORDERABLES Performing Organization Address [facility] de Phone Number [facility]) [address] * MITOCHONDRIAL ANTIBODY SCREEN (03/17/2022 3:58 PM CDT) Mitochondrial M2 Antibody 8.0 0.0 - 24.9 Units 03/19/2022 12:58 AM CDT [facility] [employer] ([facility]) Comment: REFERENCE INTERVAL: Mitochondrial (M2) Antibody, IgG 20.0 Units or less ......... Negative 20.1 - 24.9 Units........... Equivocal 25.0 Units or greater....... Positive Anti-mitochondrial antibodies (AMA) are thought to be present in 90-95% of patients with primary biliary cholangitis (PBC). However, the frequency of detected antibodies may be cohort or assay dependent, as lower sensitivities have been reported. Not all PBC patients are positive for AMA; some patients may be positive for SP100 and/or GP210 antibodies. A negative result does not rule out PBC. Performed By: [facility] [address] [place] [address] Warp Knitter Helper: Henrietta Grant MD Blood BLOOD SPECIMEN / Unknown Lab Venipuncture / Unknown 03/17/2022 3:58 PM CDT 03/17/2022 4:30 PM CDT My Pinon MD LAB - CHEMISTRY ORDERABLES Performing Organization Address [facility] de Phone Number [facility]) [address] * DNA ANTIBODY DS CRITHIDIA TITER (03/17/2022 3:58 PM CDT) Only the most recent of2 resultswithin the time period is included. dsDNA Antibody IgG <1:10 <1:10 2021 5:34 PM CDT [facility] [employer] ([facility]) Comment: INTERPRETIVE INFORMATION: Double-Stranded DNA (dsDNA) Antibody, IgG by IFA (using Crithidia luciliae) Positivity for anti-double stranded DNA (anti-dsDNA) IgG antibody is a diagnostic criterion of systemic lupus erythematosus (SLE). The presence of the anti-dsDNA IgG antibody is identified by IFA titer (Crithidia luciliae indirect fluorescent test [CRISTOBAL]). CRISTOBAL is highly specific for SLE with a sensitivity of 50-60 percent. Some patients with early or inactive SLE may be positive for anti-dsDNA IgG by STERLING but negative by CRISTOBAL. If the CRISTOBAL result is negative but the patient has a positive STERLING and clinical suspicion remains, consider antinuclear antibody (ELLEN) testing by IFA. Additional information and recommendations for testing may be found at http://www.[employer]ne[employer].com/Topics/AutoimmuneDz/ConnectiveTissueDz/i ndex.html. Performed By: [facility] [address] [place] [address] Warp Knitter Helper: Henrietta Grant MD Blood BLOOD SPECIMEN / Unknown Lab Venipuncture / Unknown 03/17/2022 3:58 PM CDT 03/17/2022 4:30 PM CDT My Pinon MD LAB - SEROLOGY ORDERABLES Performing Organization Address City/[facility]/ZIP Co de Phone Number COUNT INCLUDES THE [facility] ([facility]) [address] [place] [phone] [place] [address] * (ABNORMAL) C-REACTIVE PROTEIN (03/17/2022 3:58 PM CDT) Only the most recent of4 resultswithin the time period is included. C-Reactive Protein 0.7(H) <=0.5 mg/dL 03/17/2022 4:58 PM CDT [facility] Blood BLOOD SPECIMEN / Unknown Lab Venipuncture / Unknown 03/17/2022 3:58 PM CDT 03/17/2022 4:30 PM CDT My Pinon MD LAB - CHEMISTRY ORDERABLES [address] [address], [place] [phone] * HISTONE ANTIBODY (03/17/2022 3:58 PM CDT) Only the most recent of2 resultswithin the time period is included. [facility] Histone Antibody IgG 0.4 0.0 - 0.9 Units 03/20/2022 3:00 PM CDT COUNT INCLUDES THE [facility] ([facility]) Comment: INTERPRETIVE INFORMATION: Histone Ab, IgG 0.9 Units or less ............ Negative 1.0 - 1.5 Units .............. Weak Positive 1.6 - 2.5 Units .............. Moderate Positive 2.6 Units or greater ......... Strong Positive Performed By: [facility] [employer] [address] [place] [address] War[employer] Knitter Helper: Henrietta Grant MD Blood BLOOD SPECIMEN / Unknown Lab Venipuncture / Unknown 03/17/2022 3:58 PM CDT 03/17/2022 4:30 PM CDT My Pinon MD LAB - CHEMISTRY ORDERABLES [facility]) [address] * (ABNORMAL) ERYTHROCYTE SEDIMENTATION RATE (03/17/2022 3:58 PM CDT) Only the most recent of6 resultswithin the time period is included. [facility] Erythrocyte Sedimentation Rate Westergren 34(H) 0 - 20 MM/HR 03/17/2022 4:47 PM CDT [facility] Blood BLOOD SPECIMEN / Unknown Lab Venipuncture / Unknown 03/17/2022 3:58 PM CDT 03/17/2022 4:31 PM CDT My Pinon MD LAB - HEMATOLOG Y ORDERABLES [address] [address], [facility] [phone] * HEPATITIS B SURFACE ANTIBODY (03/17/2022 3:58 PM CDT) [facility] Hepatitis B Virus Surface Antibody Non-react mohit Non-react mohit 03/17/2022 5:16 PM CDT [facility] Comment: < 8 mIU/mL Hepatitis B surface Antibody (HBsAb). Nonreactive for HBsAb - individual is considered not immune to Hepatitis B Virus infection. Hepatitis B Surface Antibody Quantitative 0.4 <8.0 mIU/mL 03/17/2022 5:16 PM CDT [facility] Comment: Hepatitis B Surface Antibody Numeric Result Interpretation: Nonreactive: <8.0 mIU/mL Indeterminate: 8.0 - 12.0 mIU/mL Reactive: >12.0 mIU/mL Blood BLOOD SPECIMEN / Unknown Lab Venipuncture / Unknown 03/17/2022 3:58 PM CDT 03/17/2022 4:30 PM CDT My Pinon MD LAB - CHEMISTRY ORDERABLES Performing Organization Address City/[facility]/ZIP Co de Phone Number [address] [address], [facility] [phone] * HEPATITIS B CORE ANTIBODY (03/17/2022 3:58 PM CDT) HBc Antibody Total Non-reacti ve Non-reacti ve 03/17/2022 5:16 PM CDT [facility] Blood BLOOD SPECIMEN / Unknown Lab Venipuncture / Unknown 03/17/2022 3:58 PM CDT 03/17/2022 4:30 PM CDT My Pinon MD LAB - CHEMISTRY ORDERABLES [address] [address], [facility] [phone] * HEPATITIS B SURFACE ANTIGEN W RFLX CONFIRMATION (03/17/2022 3:58 PM CDT) Hepatitis B Virus Surface Antigen Non-reacti ve Non-reacti ve 03/17/2022 5:16 PM CDT [facility] Blood BLOOD SPECIMEN / Unknown Lab Venipuncture / Unknown 03/17/2022 3:58 PM CDT 03/17/2022 4:30 PM CDT My Pinon MD LAB - CHEMISTRY ORDERABLES Performing Organization Address City/[facility]/ZIP Co de Phone Number [address] [address], [place] [phone] * IGM BLOOD (03/17/2022 3:58 PM CDT) Only the most recent of4 resultswithin the time period is included. IgM 97 37 - 286 mg/dL 03/17/2022 4:58 PM CDT [facility] Blood BLOOD SPECIMEN / Unknown Lab Venipuncture / Unknown 03/17/2022 3:58 PM CDT 03/17/2022 4:30 PM CDT My Pinon MD LAB - CHEMISTRY ORDERABLES Performing Organization Address [facility] Co de Phone Number [address] [address], [place] [phone] * IGG BLOOD (03/17/2022 3:58 PM CDT) Only the most recent of4 resultswithin the time period is included. IgG 1,253 767 - 1,590 mg/dL 03/17/2022 4:58 PM CDT [facility] Blood BLOOD SPECIMEN / Unknown Lab Venipuncture / Unknown 03/17/2022 3:58 PM CDT 03/17/2022 4:30 PM CDT My Pinon MD LAB - CHEMISTRY ORDERABLES Performing Organization Address City/[facility]/ZIP Co de Phone Number [address] [address], [place] [phone] * IGA BLOOD (03/17/2022 3:58 PM CDT) Only the most recent of4 resultswithin the time period is included. IgA 271 61 - 356 mg/dL 03/17/2022 4:58 PM CDT [facility] Blood BLOOD SPECIMEN / Unknown Lab Venipuncture / Unknown 03/17/2022 3:58 PM CDT 03/17/2022 4:30 PM CDT My Pinon MD LAB - CHEMISTRY ORDERABLES Performing Organization Address City/[facility] Co de Phone Number [facility] [address] [place] [phone], [facility] [phone] * HEPATITIS C ANTIBODY (03/17/2022 3:58 PM CDT) Hepatitis C Antibody Non-react mohit Non-reac tive 03/17/2022 5:16 PM CDT [facility] Comment:Hepatitis C Antibody screen indicates no [...] LAB - CHEMISTRY ORDERABLES Performing Organization Address City/[facility]/ZIP Co de Phone Number [facility] [address] [place] [phone], [facility] [phone] * IMAGING RADIOLOGY XRAY RESULTS ORDER (11/15/2021) Anatomical Region Laterality Modality Other 11/15/2021 Narrative 11/15/2021 Ordered by an unspecified provider. Scanned Document IMAGING * CARDIOLIPIN ANTIBODY IGA (11/04/2021 3:35 PM DOPE M[employer]ER) Only the most recent of2 resultswithin the time period is included. Cardiolipin Antibody IgA <10 <=11 APL 11/07/2021 12:07 AM DOPE MIXER [facility] ([facility]) Comment: INTERPRETIVE INFORMATION: Cardiolipin Antibodies, IgA <=11 APL: Negative 12-19 APL: Indeterminate 20-80 APL: Low to Moderately Positive 81 APL or above: High Positive Performed By: [facility] [address] [place] [address] Warp Knitter Helper: Henrietta Grant MD Blood BLOOD SPECIMEN / Unknown Lab Venipuncture / Unknown 11/04/2021 3:35 PM DOPE M[employer]ER 11/04/2021 3:51 PM DOPE M[employer]ER My Pinon MD LAB - SEROLOGY ORDERABLES [facility] ([facility]) [address] [place] [address], [facility] * (ABNORMAL) CARDIOLIPIN ANTIBODY IGM (11/04/2021 3:35 PM DOPE M[employer]ER) Only the most recent of2 resultswithin the time period is included. [facility] Cardiolipin Antibody IgM 63(H) <=12 MPL 11/07/2021 7:33 AM DOPE MIXER [facility] ([facility]) Comment: INTERPRETIVE INFORMATION: Anti-Cardiolipin IgM <=12 MPL: Negative 13-19 MPL: Indeterminate 20-80 MPL: Low to Moderately Positive 81 MPL or above: High Positive The persistent presence of IgG and/or IgM cardiolipin (CL) antibodies in moderate or high levels (greater than 40 GPL and/or greater than 40 MPL units) is a laboratory criterion for the diagnosis of antiphospholipid syndrome (APS). Persistence is defined as moderate or high levels of IgG and/or IgM CL antibodies detected in two or more specimens drawn at least 12 weeks apart (J Throm Haemost. 2006;4:295-306). Lower positive levels of IgG and/or IgM CL antibodies (above cutoff but less than 40 GPL and/or less than 40 MPL units) may occur in patients with the clinical symptoms of APS; therefore, the actual significance of these levels is undefined. Results should not be used alone for diagnosis and must be interpreted in light of APS-specific clinical manifestations and/or other criteria phospholipid antibody tests. Performed By: [facility] [address] [place] [address] [employer] Knitter Helper: Henrietta Grant MD Blood BLOOD SPECIMEN / Unknown Lab Venipuncture / Unknown 11/04/2021 3:35 PM DOPE MIXER 11/04/2021 3:51 PM DOPE MIXER My Pinon MD LAB - SEROLOGY ORDERABLES [facility]) [address] [place] [address] * CARDIOLIPIN ANTIBODY IGG (11/04/2021 3:35 PM DOPE MIXER) Only the most recent of2 resultswithin the time period is included. Cardiolipin Antibody IgG <10 <=14 GPL 11/07/2021 11:58 PM DOPE MIXER [facility] ([facility]) Comment: INTERPRETIVE INFORMATION: Anti-Cardiolipin IgG Ab <=14 GPL: Negative 15-19 GPL: Indeterminate 20-80 GPL: Low to Moderately Positive 81 GPL or above: High Positive The persistent presence of IgG and/or IgM cardiolipin (CL) antibodies in moderate or high levels (greater than 40 GPL and/or greater than 40 MPL units) is a laboratory criterion for the diagnosis of antiphospholipid syndrome (APS). Persistence is defined as moderate or high levels of IgG and/or IgM CL antibodies detected in two or more specimens drawn at least 12 weeks apart (J Throm Haemost. 2006;4:295-306). Lower positive levels of IgG and/or IgM CL antibodies (above cutoff but less than 40 GPL and/or less than 40 MPL units) may occur in patients with the clinical symptoms of APS; therefore, the actual significance of these levels is undefined. Results should not be used alone for diagnosis and must be interpreted in light of APS-specific clinical manifestations and/or other criteria phospholipid antibody tests. Performed By: [facility] [address] [place] [address] War[employer] Knitter Helper: Henrietta Grant MD Blood BLOOD SPECIMEN / Unknown Lab Venipuncture / Unknown 11/04/2021 3:35 PM DOPE MIXER 11/04/2021 3:51 PM DOPE MIXER My Pinon MD LAB - SEROLOGY ORDERABLES [facility] ([facility]) [address] [place] [address] * (ABNORMAL) HEMOGLOBIN A1C (11/04/2021 3:35 PM DOPE MIXER) Only the most recent of2 resultswithin the time period is included. Hemoglobin A1c 6.5(H) 4.4 - 6.3 % 11/05/2021 9:43 AM DOPE MIXER [facility] Estimated Average Glucose 140 mg/dL 11/05/2021 9:43 AM DOPE MIXER [facility] Comment: HbA1c Interpretation: Treatment target values recommended by ADA and other clinical organizations should be used to evaluate metabolic control in patients. Treatment Target Values: Normal : < 5.7% Pre-diabetes: 5.7-6.4% Diabetes: Equal to or greater than 6.5% Reference: [place] [employer] Standards of Care in Diabetes -2014 In patients 70 years and older consider HbA1c target range of 7.0-7.5% Reference: Diabetes Mellitus in Older People: Position Statement on behalf of the International Association of Gerontology and Geriatrics (IAGG), the Diabetes Working Constitution Party for Older People (EDWPOP), and the International Task Force of Experts in Diabetes. Jorge Danielson, et al. J [employer]. 2012 Test results diagnostic of diabetes should be repeated for confirmation. The Sebia Capillary 2 assay for the measurement of HbA1c is a National Glycohemoglobin Standardization Program (NGSP)certified method. Blood BLOOD SPECIMEN / Unknown Lab Venipuncture / Unknown 11/04/2021 3:35 PM DOPE MIXER 11/04/2021 3:54 PM DOPE MIXER Breanna Gauthier MD LAB - CHEMISTRY VIANEY LAMB [facility] Organization Address City/State/ZIP Co de Phone Number [facility] [address] [place] [phone], [facility] [phone] * VITAMIN B12 (11/04/2021 3:35 PM DOPE MIXER) Only the most recent of2 resultswithin the time period is included. Vitamin B12 307 213 - 816 pg/mL 11/04/2021 4:46 PM DOPE MIXER [facility] Blood BLOOD SPECIMEN / Unknown Lab Venipuncture / Unknown 11/04/2021 3:35 PM DOPE MIXER 11/04/2021 3:54 PM DOPE MIXER Breanna Gauthier MD LAB - CHEMISTRY VIANEY [place]ola Organization Address City/State/ZIP Co de Phone Number [address] [phone], [facility] [phone] * EMG WITH NERVE CONDUCTION STUDY (09/24/2021 2:00 PM CDT) Narrative Breanna Gauthier MD - 09/24/2021 2:00 PM CDT Breanna Gauthier MD 09/24/2021 2:51 PM Full Name: Enedelia Marie Procedure #: [id number] Gender: Female Date of : 1975 Visit Date: 09/24/2021 14:23 Age: 45 Years Examining Physician: Breanna Gauthier MD Referring Physician: Breanna Gauthier MD Reason for Test: Sensory Neuropathy SNC Nerve / Sites Rec. Site Onset Lat Peak Lat PP Amp Segments Distance Peak Diff Velocity Temp. ms ms V mm ms m/s C R Radial - Anatomical snuff box (Forearm) Forearm Wrist 1.7 2.3 29.3 Forearm - Wrist 100 58 32.2 Ref. ?2.5 ?15.0 Ref. ?53 R Sural - Ankle (Calf) Calf Ankle 2.6 3.3 6.6 Calf - Ankle 140 54 36.6 Ref. ?4.8 ?5.0 Ref. ?45 L Sural - Ankle (Calf) Calf Ankle 2.7 3.3 5.1 Calf - Ankle 140 53 33.5 Ref. ?4.8 ?5.0 Ref. ?45 2 Ankle 2.5 3.3 5.1 2 - Calf -0.0 33.8 MNC Nerve / Sites Muscle Latency Amplitude Segments Lat Diff Distance Velocity ms mV ms mm m/s R Peroneal - EDB Ankle EDB 4.3 4.1 Ankle - EDB 80 Ref. ?6.6 ?2.0 Ref. Fib head EDB 11.6 3.4 Fib head - Ankle 7.4 320 43 Ref. Ref. ?42 Pop fossa EDB 12.8 3.6 Pop fossa - Fib head 1.1 70 62 Ref. Ref. ?42 Pop fossa - Ankle 8.5 L Peroneal - EDB Ankle EDB 3.9 4.5 Ankle - EDB 80 Ref. ?6.6 ?2.0 Ref. Fib head EDB 10.7 4.0 Fib head - Ankle 6.9 320 47 Ref. Ref. ?42 Pop fossa EDB 12.2 3.8 Pop fossa - Fib head 1.5 80 55 Ref. Ref. ?42 Pop fossa - Ankle 8.3 L Tibial - AH Ankle AH 4.1 4.0 Ankle - AH 80 Ref. ?6.6 ?2.0 Ref. Pop fossa AH 12.8 3.2 Pop fossa - Ankle 8.8 403 46 Ref. Ref. ?42 R Tibial - AH Ankle AH 4.3 5.4 Ankle - AH 80 Ref. ?6.6 ?2.0 Ref. Pop fossa AH 13.4 4.1 Pop fossa - Ankle 9.1 396 43 Ref. Ref. ?42 EMG Summary Table Insertional Spontaneous Volitional MUAPs Muscle Nerve Roots Insertional Fib PSW Fasc Duration Amplitude Poly Recruitment R. Tibialis anterior Deep peroneal (Fibular) L4-L5 Normal None None None Normal Normal None Normal R. Gastrocnemius (Medial head) Tibial S1-S2 Normal None None None Normal Normal None Normal R. Extensor hallucis longus Deep peroneal (Fibular) L5-S1 Normal None None None Normal Normal None Normal L. Extensor hallucis longus Deep peroneal (Fibular) L5-S1 Normal None None None Normal Normal None Normal L. Gastrocnemius (Medial head) Tibial S1-S2 Normal None None None Normal Normal None Normal L. Tibialis anterior Deep peroneal (Fibular) L4-L5 Normal None None None Normal Normal None Normal Interpretation: The right radial sensory SNAP response is normal. The bilateral sural sensory SNAP responses are normal. The bilateral peroneal motor CMAP responses are normal. The bilateral tibial motor CMAP responses are normal. The needle EMG exam of several muscles on the lower limbs shows no abnormal spontaneous activity. The motor unit action potentials MUAPs are normal in shape and duration. Conclusions: This study is normal. There is no evidence for large fiber neuropathy. A normal EDX does not rule out small fiber neuropathy. Clinical correlation is recommended. Al-Dahhak, Breanna MD Breanna Gauthier MD NEUROLOGY ORDERABLES * CULTURE URINE REFLEXED III (09/09/2021 1:57 PM CDT) Reflexive Urine Culture See Below [facility] Comment: NO CULTURE INDICATED Test Performed at: [address] [id number] JOSEMANUEL PATE MD 09/09/2021 1:57 PM CDT 09/09/2021 1:58 PM CDT My Pinon MD LAB - MICROBIOL OGY ORDERABLES [address] [address] * LAB RESULTS ORDER (01/22/2021 10:34 AM DOPE MIXER) Only the most recent of3 resultswithin the time period is included. Narrative 01/22/2021 10:34 AM DOPE MIXER Ordered by an unspecified provider. Scanned Document LAB - THERAPEUTIC DR WILLIS MONITORING ORDERABLES * XR FOOT RIGHT 2VW (08/31/2020 4:51 PM CDT) Anatomical Region Laterality Modality Ankle / Foot Radiographic Isha ging 09/03/2020 7:17 AM CDT Impressions 09/03/2020 7:20 AM CDT IMPRESSION: No significant arthritis. This report was electronically signed by CADEN MORALES MD on 09/03/2020 7:20 AM . Narrative 09/03/2020 7:20 AM CDT Exam: 1.XR HAND RIGHT 2VW 2. XR ANKLE LEFT 2VW 3. XR FOOT RIGHT 2VW 4. XR FOOT LEFT 2VW 5. XR HAND LEFT 2VW 6. XR ANKLE RIGHT 2VW History: Z23: Need for influenza vaccination M19.90: Arthritis Z79.899: High risk medication use Z79.52: On prednisone therapy Comparison: None. Findings: Right hand: No fracture or dislocation is present. The joint spaces are normal. No erosions are seen. Bone density is normal. The soft tissues are normal. Left hand: No fracture or dislocation is present. The joint spaces are normal. No erosions are seen. Bone density is normal. The soft tissues are normal. Right ankle: No fracture or dislocation is present. The joint spaces are normal. No erosions are seen. Bone density is normal. Soft tissue swelling is noted Left ankle: No fracture or dislocation is present. The joint spaces are normal. No erosions are seen. Bone density is normal. Soft tissue swelling is present. Right foot: No fracture or dislocation is present. The joint spaces are normal. No erosions are seen. Bone density is normal. There is mild soft tissue swelling. A plantar calcaneal spur is visible. Left foot: No fracture or dislocation is present. The joint spaces are normal. Minimal osteophyte formation and a small subchondral cyst are noted at the lateral aspect of the first metatarsophalangeal joint. No erosions are seen. Bone density is normal. Mild soft tissue swelling is noted. A plantar calcaneal spur is seen. Procedure Note Caden Moarles MD - 09/03/2020 Exam: 1.XR HAND RIGHT 2VW 2. XR ANKLE LEFT 2VW 3. XR FOOT RIGHT 2VW 4. XR FOOT LEFT 2VW 5. XR HAND LEFT 2VW 6. XR ANKLE RIGHT 2VW History: Z23: Need for influenza vaccination M19.90: Arthritis Z79.899: High risk medication use Z79.52: On prednisone therapy Comparison: None. Findings: Right hand: No fracture or dislocation is present. The joint spaces are normal. No erosions are seen. Bone density is normal. The soft tissues arenormal. Left hand: No fracture or dislocation is present. The joint spaces are normal. No erosions are seen. Bone density is normal. The soft tissues arenormal. Right ankle: No fracture or dislocation is present. The joint spaces are normal. No erosions are seen. Bone density is normal. Soft tissue swelling isnoted Left ankle: No fracture or dislocation is present. The joint spaces are normal. No erosions are seen. Bone density is normal. Soft tissue swelling is present. Right foot: No fracture or dislocation is present. The joint spaces are normal. No erosions are seen. Bone density is normal. There is mild soft tissue swelling. A plantar calcaneal spur is visible. Left foot: No fracture or dislocation is present. The joint spaces are normal. Minimal osteophyte formation and a small subchondral cyst are noted atthe lateral aspect of the first metatarsophalangeal joint. No erosions are seen. Bone density is normal. Mild soft tissue swelling is noted. A plantar calcaneal spur is seen. IMPRESSION: No significant arthritis. This report was electronically signed by CADEN MORALES MD on09/03/2020 7:20 AM . My Pinon MD DIAGNOSTIC IMAG ING ORDERABLES * XR FOOT LEFT 2VW (08/31/2020 4:51 PM CDT) Anatomical Region Laterality Modality Ankle / Foot Radiographic Isha ging 09/03/2020 7:17 AM CDT Impressions 09/03/2020 7:20 AM CDT IMPRESSION: No significant arthritis. This report was electronically signed by CADEN MORALES MD on 09/03/2020 7:20 AM . Narrative 09/03/2020 7:20 AM CDT Exam: 1.XR HAND RIGHT 2VW 2. XR ANKLE LEFT 2VW 3. XR FOOT RIGHT 2VW 4. XR FOOT LEFT 2VW 5. XR HAND LEFT 2VW 6. XR ANKLE RIGHT 2VW History: Z23: Need for influenza vaccination M19.90: Arthritis Z79.899: High risk medication use Z79.52: On prednisone therapy Comparison: None. Findings: Right hand: No fracture or dislocation is present. The joint spaces are normal. No erosions are seen. Bone density is normal. The soft tissues are normal. Left hand: No fracture or dislocation is present. The joint spaces are normal. No erosions are seen. Bone density is normal. The soft tissues are normal. Right ankle: No fracture or dislocation is present. The joint spaces are normal. No erosions are seen. Bone density is normal. Soft tissue swelling is noted Left ankle: No fracture or dislocation is present. The joint spaces are normal. No erosions are seen. Bone density is normal. Soft tissue swelling is present. Right foot: No fracture or dislocation is present. The joint spaces are normal. No erosions are seen. Bone density is normal. There is mild soft tissue swelling. A plantar calcaneal spur is visible. Left foot: No fracture or dislocation is present. The joint spaces are normal. Minimal osteophyte formation and a small subchondral cyst are noted at the lateral aspect of the first metatarsophalangeal joint. No erosions are seen. Bone density is normal. Mild soft tissue swelling is noted. A plantar calcaneal spur is seen. Procedure Note Caden Morales MD - 09/03/2020 Exam: 1.XR HAND RIGHT 2VW 2. XR ANKLE LEFT 2VW 3. XR FOOT RIGHT 2VW 4. XR FOOT LEFT 2VW 5. XR HAND LEFT 2VW 6. XR ANKLE RIGHT 2VW History: Z23: Need for influenza vaccination M19.90: Arthritis Z79.899: High risk medication use Z79.52: On prednisone therapy Comparison: None. Findings: Right hand: No fracture or dislocation is present. The joint spaces are normal. No erosions are seen. Bone density is normal. The soft tissues arenormal. Left hand: No fracture or dislocation is present. The joint spaces are normal. No erosions are seen. Bone density is normal. The soft tissues arenormal. Right ankle: No fracture or dislocation is present. The joint spaces are normal. No erosions are seen. Bone density is normal. Soft tissue swelling isnoted Left ankle: No fracture or dislocation is present. The joint spaces are normal. No erosions are seen. Bone density is normal. Soft tissue swelling is present. Right foot: No fracture or dislocation is present. The joint spaces are normal. No erosions are seen. Bone density is normal. There is mild soft tissue swelling. A plantar calcaneal spur is visible. Left foot: No fracture or dislocation is present. The joint spaces are normal. Minimal osteophyte formation and a small subchondral cyst are noted atthe lateral aspect of the first metatarsophalangeal joint. No erosions are seen. Bone density is normal. Mild soft tissue swelling is noted. A plantar calcaneal spur is seen. IMPRESSION: No significant arthritis. This report was electronically signed by CADEN MORALES MD on09/03/2020 7:20 AM . My Pinon MD DIAGNOSTIC IMAG ING ORDERABLES * XR ANKLE RIGHT 2VW (08/31/2020 4:51 PM CDT) Anatomical Region Laterality Modality Lower Extremity Radiographic Isha ging 09/03/2020 7:17 AM CDT Impressions 09/03/2020 7:20 AM CDT IMPRESSION: No significant arthritis. This report was electronically signed by CADEN MORALES MD on 09/03/2020 7:20 AM . Narrative 09/03/2020 7:20 AM CDT Exam: 1.XR HAND RIGHT 2VW 2. XR ANKLE LEFT 2VW 3. XR FOOT RIGHT 2VW 4. XR FOOT LEFT 2VW 5. XR HAND LEFT 2VW 6. XR ANKLE RIGHT 2VW History: Z23: Need for influenza vaccination M19.90: Arthritis Z79.899: High risk medication use Z79.52: On prednisone therapy Comparison: None. Findings: Right hand: No fracture or dislocation is present. The joint spaces are normal. No erosions are seen. Bone density is normal. The soft tissues are normal. Left hand: No fracture or dislocation is present. The joint spaces are normal. No erosions are seen. Bone density is normal. The soft tissues are normal. Right ankle: No fracture or dislocation is present. The joint spaces are normal. No erosions are seen. Bone density is normal. Soft tissue swelling is noted Left ankle: No fracture or dislocation is present. The joint spaces are normal. No erosions are seen. Bone density is normal. Soft tissue swelling is present. Right foot: No fracture or dislocation is present. The joint spaces are normal. No erosions are seen. Bone density is normal. There is mild soft tissue swelling. A plantar calcaneal spur is visible. Left foot: No fracture or dislocation is present. The joint spaces are normal. Minimal osteophyte formation and a small subchondral cyst are noted at the lateral aspect of the first metatarsophalangeal joint. No erosions are seen. Bone density is normal. Mild soft tissue swelling is noted. A plantar calcaneal spur is seen. Procedure Note Caden Morales MD - 09/03/2020 Exam: 1.XR HAND RIGHT 2VW 2. XR ANKLE LEFT 2VW 3. XR FOOT RIGHT 2VW 4. XR FOOT LEFT 2VW 5. XR HAND LEFT 2VW 6. XR ANKLE RIGHT 2VW History: Z23: Need for influenza vaccination M19.90: Arthritis Z79.899: High risk medication use Z79.52: On prednisone therapy Comparison: None. Findings: Right hand: No fracture or dislocation is present. The joint spaces are normal. No erosions are seen. Bone density is normal. The soft tissues arenormal. Left hand: No fracture or dislocation is present. The joint spaces are normal. No erosions are seen. Bone density is normal. The soft tissues arenormal. Right ankle: No fracture or dislocation is present. The joint spaces are normal. No erosions are seen. Bone density is normal. Soft tissue swelling isnoted Left ankle: No fracture or dislocation is present. The joint spaces are normal. No erosions are seen. Bone density is normal. Soft tissue swelling is present. Right foot: No fracture or dislocation is present. The joint spaces are normal. No erosions are seen. Bone density is normal. There is mild soft tissue swelling. A plantar calcaneal spur is visible. Left foot: No fracture or dislocation is present. The joint spaces are normal. Minimal osteophyte formation and a small subchondral cyst are noted atthe lateral aspect of the first metatarsophalangeal joint. No erosions are seen. Bone density is normal. Mild soft tissue swelling is noted. A plantar calcaneal spur is seen. IMPRESSION: No significant arthritis. This report was electronically signed by CADEN MORALES MD on09/03/2020 7:20 AM . My Pinon MD DIAGNOSTIC IMAG ING ORDERABLES * XR ANKLE LEFT 2VW (08/31/2020 4:51 PM CDT) Anatomical Region Laterality Modality Lower Extremity Radiographic Isha ging 09/03/2020 7:17 AM CDT Impressions 09/03/2020 7:20 AM CDT IMPRESSION: No significant arthritis. This report was electronically signed by CADEN MORALES MD on 09/03/2020 7:20 AM . Narrative 09/03/2020 7:20 AM CDT Exam: 1.XR HAND RIGHT 2VW 2. XR ANKLE LEFT 2VW 3. XR FOOT RIGHT 2VW 4. XR FOOT LEFT 2VW 5. XR HAND LEFT 2VW 6. XR ANKLE RIGHT 2VW History: Z23: Need for influenza vaccination M19.90: Arthritis Z79.899: High risk medication use Z79.52: On prednisone therapy Comparison: None. Findings: Right hand: No fracture or dislocation is present. The joint spaces are normal. No erosions are seen. Bone density is normal. The soft tissues are normal. Left hand: No fracture or dislocation is present. The joint spaces are normal. No erosions are seen. Bone density is normal. The soft tissues are normal. Right ankle: No fracture or dislocation is present. The joint spaces are normal. No erosions are seen. Bone density is normal. Soft tissue swelling is noted Left ankle: No fracture or dislocation is present. The joint spaces are normal. No erosions are seen. Bone density is normal. Soft tissue swelling is present. Right foot: No fracture or dislocation is present. The joint spaces are normal. No erosions are seen. Bone density is normal. There is mild soft tissue swelling. A plantar calcaneal spur is visible. Left foot: No fracture or dislocation is present. The joint spaces are normal. Minimal osteophyte formation and a small subchondral cyst are noted at the lateral aspect of the first metatarsophalangeal joint. No erosions are seen. Bone density is normal. Mild soft tissue swelling is noted. A plantar calcaneal spur is seen. Procedure Note Caden Morales MD - 09/03/2020 Exam: 1.XR HAND RIGHT 2VW 2. XR ANKLE LEFT 2VW 3. XR FOOT RIGHT 2VW 4. XR FOOT LEFT 2VW 5. XR HAND LEFT 2VW 6. XR ANKLE RIGHT 2VW History: Z23: Need for influenza vaccination M19.90: Arthritis Z79.899: High risk medication use Z79.52: On prednisone therapy Comparison: None. Findings: Right hand: No fracture or dislocation is present. The joint spaces are normal. No erosions are seen. Bone density is normal. The soft tissues arenormal. Left hand: No fracture or dislocation is present. The joint spaces are normal. No erosions are seen. Bone density is normal. The soft tissues arenormal. Right ankle: No fracture or dislocation is present. The joint spaces are normal. No erosions are seen. Bone density is normal. Soft tissue swelling isnoted Left ankle: No fracture or dislocation is present. The joint spaces are normal. No erosions are seen. Bone density is normal. Soft tissue swelling is present. Right foot: No fracture or dislocation is present. The joint spaces are normal. No erosions are seen. Bone density is normal. There is mild soft tissue swelling. A plantar calcaneal spur is visible. Left foot: No fracture or dislocation is present. The joint spaces are normal. Minimal osteophyte formation and a small subchondral cyst are noted atthe lateral aspect of the first metatarsophalangeal joint. No erosions are seen. Bone density is normal. Mild soft tissue swelling is noted. A plantar calcaneal spur is seen. IMPRESSION: No significant arthritis. This report was electronically signed by CADEN MORALES MD on09/03/2020 7:20 AM . My Pinon MD DIAGNOSTIC IMAG ING ORDERABLES * XR HAND RIGHT 2VW (08/31/2020 4:51 PM CDT) Anatomical Region Laterality Modality Wrist / Hand Radiographic Isha ging 09/03/2020 7:17 AM CDT Impressions 09/03/2020 7:20 AM CDT IMPRESSION: No significant arthritis. This report was electronically signed by CADEN MORALES MD on 09/03/2020 7:20 AM . Narrative 09/03/2020 7:20 AM CDT Exam: 1.XR HAND RIGHT 2VW 2. XR ANKLE LEFT 2VW 3. XR FOOT RIGHT 2VW 4. XR FOOT LEFT 2VW 5. XR HAND LEFT 2VW 6. XR ANKLE RIGHT 2VW History: Z23: Need for influenza vaccination M19.90: Arthritis Z79.899: High risk medication use Z79.52: On prednisone therapy Comparison: None. Findings: Right hand: No fracture or dislocation is present. The joint spaces are normal. No erosions are seen. Bone density is normal. The soft tissues are normal. Left hand: No fracture or dislocation is present. The joint spaces are normal. No erosions are seen. Bone density is normal. The soft tissues are normal. Right ankle: No fracture or dislocation is present. The joint spaces are normal. No erosions are seen. Bone density is normal. Soft tissue swelling is noted Left ankle: No fracture or dislocation is present. The joint spaces are normal. No erosions are seen. Bone density is normal. Soft tissue swelling is present. Right foot: No fracture or dislocation is present. The joint spaces are normal. No erosions are seen. Bone density is normal. There is mild soft tissue swelling. A plantar calcaneal spur is visible. Left foot: No fracture or dislocation is present. The joint spaces are normal. Minimal osteophyte formation and a small subchondral cyst are noted at the lateral aspect of the first metatarsophalangeal joint. No erosions are seen. Bone density is normal. Mild soft tissue swelling is noted. A plantar calcaneal spur is seen. Procedure Note Caden Morales MD - 09/03/2020 Exam: 1.XR HAND RIGHT 2VW 2. XR ANKLE LEFT 2VW 3. XR FOOT RIGHT 2VW 4. XR FOOT LEFT 2VW 5. XR HAND LEFT 2VW 6. XR ANKLE RIGHT 2VW History: Z23: Need for influenza vaccination M19.90: Arthritis Z79.899: High risk medication use Z79.52: On prednisone therapy Comparison: None. Findings: Right hand: No fracture or dislocation is present. The joint spaces are normal. No erosions are seen. Bone density is normal. The soft tissues arenormal. Left hand: No fracture or dislocation is present. The joint spaces are normal. No erosions are seen. Bone density is normal. The soft tissues arenormal. Right ankle: No fracture or dislocation is present. The joint spaces are normal. No erosions are seen. Bone density is normal. Soft tissue swelling isnoted Left ankle: No fracture or dislocation is present. The joint spaces are normal. No erosions are seen. Bone density is normal. Soft tissue swelling is present. Right foot: No fracture or dislocation is present. The joint spaces are normal. No erosions are seen. Bone density is normal. There is mild soft tissue swelling. A plantar calcaneal spur is visible. Left foot: No fracture or dislocation is present. The joint spaces are normal. Minimal osteophyte formation and a small subchondral cyst are noted atthe lateral aspect of the first metatarsophalangeal joint. No erosions are seen. Bone density is normal. Mild soft tissue swelling is noted. A plantar calcaneal spur is seen. IMPRESSION: No significant arthritis. This report was electronically signed by CADEN MORALES MD on09/03/2020 7:20 AM . My Pinon MD DIAGNOSTIC IMAG ING ORDERABLES * XR HAND LEFT 2VW (08/31/2020 4:51 PM CDT) Anatomical Region Laterality Modality Wrist / Hand Radiographic Isha ging 09/03/2020 7:17 AM CDT Impressions 09/03/2020 7:20 AM CDT IMPRESSION: No significant arthritis. This report was electronically signed by CADEN MORALES MD on 09/03/2020 7:20 AM . Narrative 09/03/2020 7:20 AM CDT Exam: 1.XR HAND RIGHT 2VW 2. XR ANKLE LEFT 2VW 3. XR FOOT RIGHT 2VW 4. XR FOOT LEFT 2VW 5. XR HAND LEFT 2VW 6. XR ANKLE RIGHT 2VW History: Z23: Need for influenza vaccination M19.90: Arthritis Z79.899: High risk medication use Z79.52: On prednisone therapy Comparison: None. Findings: Right hand: No fracture or dislocation is present. The joint spaces are normal. No erosions are seen. Bone density is normal. The soft tissues are normal. Left hand: No fracture or dislocation is present. The joint spaces are normal. No erosions are seen. Bone density is normal. The soft tissues are normal. Right ankle: No fracture or dislocation is present. The joint spaces are normal. No erosions are seen. Bone density is normal. Soft tissue swelling is noted Left ankle: No fracture or dislocation is present. The joint spaces are normal. No erosions are seen. Bone density is normal. Soft tissue swelling is present. Right foot: No fracture or dislocation is present. The joint spaces are normal. No erosions are seen. Bone density is normal. There is mild soft tissue swelling. A plantar calcaneal spur is visible. Left foot: No fracture or dislocation is present. The joint spaces are normal. Minimal osteophyte formation and a small subchondral cyst are noted at the lateral aspect of the first metatarsophalangeal joint. No erosions are seen. Bone density is normal. Mild soft tissue swelling is noted. A plantar calcaneal spur is seen. Procedure Note Caden Morales MD - 09/03/2020 Exam: 1.XR HAND RIGHT 2VW 2. XR ANKLE LEFT 2VW 3. XR FOOT RIGHT 2VW 4. XR FOOT LEFT 2VW 5. XR HAND LEFT 2VW 6. XR ANKLE RIGHT 2VW History: Z23: Need for influenza vaccination M19.90: Arthritis Z79.899: High risk medication use Z79.52: On prednisone therapy Comparison: None. Findings: Right hand: No fracture or dislocation is present. The joint spaces are normal. No erosions are seen. Bone density is normal. The soft tissues arenormal. Left hand: No fracture or dislocation is present. The joint spaces are normal. No erosions are seen. Bone density is normal. The soft tissues arenormal. Right ankle: No fracture or dislocation is present. The joint spaces are normal. No erosions are seen. Bone density is normal. Soft tissue swelling isnoted Left ankle: No fracture or dislocation is present. The joint spaces are normal. No erosions are seen. Bone density is normal. Soft tissue swelling is present. Right foot: No fracture or dislocation is present. The joint spaces are normal. No erosions are seen. Bone density is normal. There is mild soft tissue swelling. A plantar calcaneal spur is visible. Left foot: No fracture or dislocation is present. The joint spaces are normal. Minimal osteophyte formation and a small subchondral cyst are noted atthe lateral aspect of the first metatarsophalangeal joint. No erosions are seen. Bone density is normal. Mild soft tissue swelling is noted. A plantar calcaneal spur is seen. IMPRESSION: No significant arthritis. This report was electronically signed by CADEN MORALES MD on09/03/2020 7:20 AM . My Pinon MD DIAGNOSTIC IMAG ING ORDERABLES * (ABNORMAL) CYTOPLASMIC PATTERN (08/31/2020 4:27 PM CDT) Cytoplasmic Pattern Titer 1:320(A) 09/04/2020 5:33 PM CDT [facility] ([facility]) Cytoplasmic Pattern AMA(A) 09/04/2020 5:33 PM CDT [facility] ([facility]) Comment: Performed By: [facility] [address] [place] [address] Warp Knitter Helper: Henrietta Grant MD Blood BLOOD SPECIMEN / Unknown Lab Venipuncture / Unknown 08/31/2020 4:27 PM CDT 08/31/2020 5:21 PM CDT My Pinon MD LAB - CHEMISTRY ORDERABLES Performing Organization Address [facility] de Phone Number COUNT INCLUDES THE [facility] ([facility]) [address] [place], [place] [address] * REF LAB-SPECIMEN STATUS REPORT (08/31/2020 4:27 PM CDT) Specimen Status Report Comment 09/04/2020 12:06 AM CDT [facility] ([facility]) Comment: One Specimen Identifier One Specimen Identifier The specimen received included only one patient identifier on the primary collection container. Our laboratory accrediting agency states All primary specimen containers must be labeled with 2 identifiers at the time of collection. Blood BLOOD SPECIMEN / Unknown Lab Venipuncture / Unknown 08/31/2020 4:27 PM CDT 08/31/2020 5:28 PM CDT Narrative [facility] ([facility]) - 09/04/2020 12:06 AM CDT Performed at: [address] [place] [id number] Furnace Stock Inspector: Scott Villarreal MD, Phone: [phone] My Pinon MD LAB - CHEMISTRY ORDERABLES Performing Organization Address City/[facility] Co de Phone Number [facility] ([facility]) [address] [place] [address] * CYCLIC CITRUL PEPTIDE ANTIBODY IGG/IGA (CCP) (08/31/2020 4:27 PM CDT) CCP Antibodies IgG/IgA 7 0 - 19 units 09/04/2020 12:06 AM CDT [facility] ([facility]) Comment: Negative <20 Weak positive 20 - 39 Moderate positive 40 - 59 Strong positive >59 Blood BLOOD SPECIMEN / Unknown Lab Venipuncture / Unknown 08/31/2020 4:27 PM CDT 08/31/2020 5:28 PM CDT [facility]ative [facility] - 09/04/2020 12:06 AM CDT Performed at: [address] [place] [id number] Furnace Stock Inspector: Scott Villarreal MD, Phone: [phone] My Pinon MD LAB - SEROLOGY ORDERABLES [facility] ([facility]) [address] [id number] * PANCHAL (SM) ANTIBODY SYMONE (08/31/2020 4:27 PM CDT) Pathologist [facility] Panchal (SYMONE) Antibody 1 0 - 40 AU/mL 09/03/2020 5:26 AM CDT COUNT INCLUDES THE [facility] ([facility]) Comment: INTERPRETIVE INFORMATION: Panchal (SYMONE) Antibody, IgG 29 AU/mL or Less ............. Negative 30 - 40 AU/mL ................ Equivocal 41 AU/mL or Greater .......... Positive Panchal antibody is highly specific (greater than 90 percent) for systemic lupus erythematosus (SLE) but only occurs in 30-35 percent of SLE cases. The presence of antibodies to Panchal has variable associations with SLE clinical manifestations. Performed By: [facility] [address] [place] [address] Warp Knitter Helper: Henrietta Grant MD Blood BLOOD SPECIMEN / Unknown Lab Venipuncture / Unknown 08/31/2020 4:27 PM CDT 08/31/2020 5:28 PM CDT My Pinon MD LAB - CHEMISTRY ORDERABLES COUNT INCLUDES THE [facility] ([facility]) [address] * (ABNORMAL) ELLEN BLOOD SCREEN W/REFLEX TITER (08/31/2020 4:27 PM CDT) Pathologist [facility] ELLEN IgG Detected (A) None Detected 09/02/2020 11:27 PM CDT [facility] ([facility]) Comment: Antibodies to Anti-Nuclear Antibodies (ELLEN) detected. Additional testing to follow. INTERPRETIVE INFORMATION: Anti-Nuclear Antibodies (ELLEN), IgG by STERLING Antinuclear Antibodies (ELLEN), IgG by STERLING: ELLEN specimens are screened using enzyme-linked immunosorbent assay (STERLING) methodology. All STERLING results reported as Detected are further tested by indirect fluorescent assay (IFA) using HEp-2 substrate with an IgG-specific conjugate. The ELLEN STERLING screen is designed to detect antibodies against dsDNA, histones, SS-A (Ro), SS-B (La), Panchal, Panchal/NURSE RECEPTIONIST, Scl-70, Kate-1, centromeric proteins, other antigens extracted from the HEp-2 cell nucleus. ELLEN STERLING assays have been reported to have lower sensitivities than ELLEN IFA for systemic autoimmune rheumatic diseases (SARD). Negative results do not necessarily rule out SARD. Performed By: [facility] [address] [place] [address] Warp Knitter Helper: Henrietta Grant MD Blood BLOOD SPECIMEN / Unknown Lab Venipuncture / Unknown 08/31/2020 4:27 PM CDT 08/31/2020 5:21 PM CDT My Pinon MD LAB - CHEMISTRY ORDERABLES Performing Organization Address [facility] Co de Phone Number [facility] [employer]) [address] [place] [address] * (ABNORMAL) THYROID PEROXIDASE ANTIBODY (08/31/2020 4:27 PM CDT) Only the most recent of2 resultswithin the time period is included. Thyroid Peroxidase TPO Antibody 912.4(H) 0.0 - 9.0 IU/mL 09/02/2020 6:38 PM CDT [facility] ([facility]) Comment: Performed By: [facility] [address] [place] [address] Warp Knitter Helper: Henrietta Grant MD Blood BLOOD SPECIMEN / Unknown Lab Venipuncture / Unknown 08/31/2020 4:27 PM CDT 08/31/2020 5:21 PM CDT My Pinon MD LAB - CHEMISTRY ORDERABLES [facility]) [address] * (ABNORMAL) THYROGLOBULIN ANTIBODY (08/31/2020 4:27 PM CDT) Pathologist [facility] Thyroglobulin Antibody >2200.0(H ) 0.0 - 4.0 IU/mL 09/02/2020 7:55 PM CDT COUNT INCLUDES THE [facility] ([facility]) Comment: INTERPRETIVE INFORMATION: Thyroglobulin Antibody A value of 4.0 IU/mL or less indicates a negative result for thyroglobulin antibodies. The Thyroglobulin Antibody assay is being performed using the Adrianne Gridcentric Access DxI method. Performed By: [facility] [address] [place] [address] Warp Knitter Helper: Henrietta Grant MD Blood BLOOD SPECIMEN / Unknown Lab Venipuncture / Unknown 08/31/2020 4:27 PM CDT 08/31/2020 5:21 PM CDT My Pinon MD LAB - CHEMISTRY ORDERABLES [facility] [employer] ([facility]) [address] * SS-B (SJOGREN'S) ANTIBODY (08/31/2020 4:27 PM CDT) Pathologist [facility] SS-B Antibody 0 0 - 40 AU/mL 09/03/2020 5:26 AM CDT [facility] [employer] ([facility]) Comment: INTERPRETIVE INFORMATION: SSB (La) (SYMONE) Ab, IgG 29 AU/mL or Less ............. Negative 30 - 40 AU/mL ................ Equivocal 41 AU/mL or Greater .......... Positive SSB (La) antibody is seen in 50-60% of Sjogren syndrome cases and is specific if it is the only SYMONE antibody present. 15-25% of patients with systemic lupus erythematosus (SLE) and 5-10% of patients with progressive systemic sclerosis (PSS) also have this antibody. Performed By: [facility] [employer] [address] [place] [address] Warp Knitter Helper: Henrietta Grant MD Blood BLOOD SPECIMEN / Unknown Lab Venipuncture / Unknown 08/31/2020 4:27 PM CDT 08/31/2020 5:20 PM CDT My Pinon MD LAB - CHEMISTRY ORDERABLES [facility] [employer] [facility]) [address] [place] [address] * (ABNORMAL) VITAMIN D 25-HYDROXY (08/31/2020 4:27 PM CDT) Vitamin D, 25 Hydroxy 13.0(L) See comment: ng/mL 08/31/2020 5:59 PM CDT [facility] Comment: The recommendations for 25-Hydroxy Vitamin D clinical decision points are as follows: Deficient: <20.0 ng/mL Insufficient: 20.0 - 29.9 ng/mL Sufficient: > or =30.0 ng/mL If the 25-Hydroxy Vitamin D results are inconsitent with clinical evidence, it is recommended that follow-up testing using a method such as LC/MS/MS be performed to confirm the result. Reference: The Endocrine Society Clinical Practice Guidelines. 2011 Blood BLOOD SPECIMEN / Unknown Lab Venipuncture / Unknown 08/31/2020 4:27 PM CDT 08/31/2020 5:08 PM CDT My Pinon MD LAB - CHEMISTRY ORDERABLES Performing Organization Address City/[facility]/ZIP Co de Phone Number [address] [address], [facility] [phone] * ALDOLASE (08/31/2020 4:27 PM CDT) Aldolase 6.7 1.5 - 8.1 U/L 09/02/2020 7:40 PM CDT [facility] [employer] ([facility]) Comment: REFERENCE INTERVAL: Aldolase Access complete set of age- and/or gender-specific reference intervals for this test in the [facility] Test Directory ([facility]). Performed By: [facility] [address] [place] [address] Warp Knitter Helper: Henrietta Grant MD Blood BLOOD SPECIMEN / Unknown Lab Venipuncture / Unknown 08/31/2020 4:27 PM CDT 08/31/2020 5:28 PM CDT My Pinon MD LAB - CHEMISTRY ORDERABLES [facility] [employer] ([facility]) [address] [place] [id number], [facility] * LDH BLOOD (08/31/2020 4:27 PM CDT) Only the most recent of7 resultswithin the time period is included. LDH Total 184 125 - 243 Units/L 08/31/2020 5:41 PM CDT [facility] Blood BLOOD SPECIMEN / Unknown Lab Venipuncture / Unknown 08/31/2020 4:27 PM CDT 08/31/2020 5:08 PM CDT My Pinon MD LAB - CHEMISTRY ORDERABLES Performing Organization Address [facility]/ZIP Co de Phone Number [facility] [address] [place] [address], [facility] [phone] * CK BLOOD (08/31/2020 4:27 PM CDT) CK Total 49 30 - 200 Units/L 08/31/2020 5:41 PM CDT [facility] Blood BLOOD SPECIMEN / Unknown Lab Venipuncture / Unknown 08/31/2020 4:27 PM CDT 08/31/2020 5:08 PM CDT My Pinon MD LAB - CHEMISTRY ORDERABLES Performing Organization Address [facility]/ZIP Co de Phone Number [address] [address], [facility] [phone] * CARDIAC EKG ORDER (11/29/2019 12:39 PM DOPE MIXER) Narrative 11/29/2019 12:39 PM DOPE MIXER Ordered by an unspecified provider. Scanned Document CARDIAC SERVICES ORD ERABLES * XR CHEST 1VW PORTABLE (11/26/2019 7:11 PM DOPE MIXER) Anatomical Region Laterality Modality Chest Radiographic Isha ging 11/26/2019 7:47 PM DOPE MIXER Narrative 11/26/2019 7:48 PM DOPE M[employer]ER IMAGING STUDIES: XR CHEST 1VW PORTABLE EXAM DATE/TIME: 11/26/2019 7:11 PM COMPARISON STUDIES: No previous available CLINICAL HISTORY: Low back pain. FINDINGS AND IMPRESSION: 1.Mild cardiomegaly. Rotated exam. 2.Suboptimal inspiratory effort. No infiltrates. 3.No pleural effusion or pneumothorax. 4.No significant bony abnormalities. Procedure Note Presley Elena MD - 11/26/2019 IMAGING STUDIES: XR CHEST 1VW PORTABLE EXAM DATE/TIME: 11/26/2019 7:11 PM COMPARISON STUDIES: No previous available CLINICAL HISTORY: Low back pain. FINDINGS AND IMPRESSION: 1.Mild cardiomegaly. Rotated exam. 2.Suboptimal inspiratory effort. No infiltrates. 3.No pleural effusion or pneumothorax. 4.No significant bony abnormalities. Sin Doty MD DIAGNOSTIC IMAGING O RDERABLES * XR SHOULDER 2+ VW LEFT [id number] (11/26/2019 7:11 PM DOPE MIXER) Anatomical Region Laterality Modality Upper Extremity Radiographic Isha ging 11/26/2019 7:47 PM DOPE MIXER Narrative 11/26/2019 7:47 PM DOPE MIXER IMAGING STUDIES: XR SHOULDER LEFT 2VW OR MORE DATE: 11/26/2019 7:11 PM COMPARISON STUDIES: No previous available. CLINICAL HISTORY: Low back pain. FINDINGS AND IMPRESSION: 1.No conclusive evidence of acute fracture or dislocation. No destructive or lytic lesions. No radiopaque foreign bodies or abnormal soft tissue calcifications noted . Procedure Note Presley Elena MD - 11/26/2019 IMAGING STUDIES: XR SHOULDER LEFT 2VW OR MORE DATE: 11/26/2019 7:11 PM COMPARISON STUDIES: No previous available. CLINICAL HISTORY: Low back pain. FINDINGS AND IMPRESSION: 1.No conclusive evidence of acute fracture or dislocation. No destructive or lytic lesions. No radiopaque foreign bodies or abnormal soft tissue calcifications noted . Sin Doty MD DIAGNOSTIC IMAGING O RDERABLES * XR SHOULDER 2+ VW RIGHT [id number] (11/26/2019 7:10 PM DOPE MIXER) Anatomical Region Laterality Modality Upper Extremity Radiographic Isha ging 11/26/2019 7:47 PM DOPE MIXER Narrative 11/26/2019 7:47 PM DOPE MIXER IMAGING STUDIES: XR SHOULDER RIGHT 2VW OR MORE DATE: 11/26/2019 7:10 PM COMPARISON STUDIES: No previous available. CLINICAL HISTORY: Low back pain. FINDINGS AND IMPRESSION: 1.No conclusive evidence of acute fracture or dislocation. No destructive or lytic lesions. No radiopaque foreign bodies or abnormal soft tissue calcifications noted . Procedure Note Presley Elena MD - 11/26/2019 IMAGING STUDIES: XR SHOULDER RIGHT 2VW OR MORE DATE: 11/26/2019 7:10 PM COMPARISON STUDIES: No previous available. CLINICAL HISTORY: Low back pain. FINDINGS AND IMPRESSION: 1.No conclusive evidence of acute fracture or dislocation. No destructive or lytic lesions. No radiopaque foreign bodies or abnormal soft tissue calcifications noted . Sin Doty MD DIAGNOSTIC IMAGING O RDERABLES * CT LUMBAR SPINE WO CONTRAST [id number] (11/26/2019 6:58 PM DOPE MIXER) Anatomical Region Laterality Modality Spine Computed Tomogra phy 11/26/2019 7:36 PM DOPE MIXER Impressions 11/26/2019 7:41 PM DOPE MIXER 1.The sensitivity and specificity of the exam is severely limited due to patient body habitus, suboptimal urhezt-lg-ulhgd ratio and the resolution of the CT scan. Recommend evaluation with MRI if disc herniation and/or nerve root impingement is clinically suspected. 2.Constipation, large amount of stool in the rectum with mild mucosal thickening of the rectum, early stercoral colitis a possibility. Narrative 11/26/2019 7:41 PM DOPE MIXER EXAMINATION: CT LUMBAR SPINE WO CONTRAST EXAM DATE/TIME: 11/26/2019 6:58 PM CLINICAL HISTORY: Low back pain COMPARISON STUDIES: No previous available TECHNIQUE: Thin axial sections with sagittal and coronal reconstructions acquired through the lumbar spine. Radiation dose reduction technique was utilized. FINDINGS: FINDINGS: The lumbar vertebral bodies are well aligned with normal shape, size. The intervertebral disc spaces are preserved. . Incidental visualization of constipation. L1-L2: Central canal preserved, neural exit foramina are patent bilaterally. L2-L3: Central canal preserved, neural exit foramina are patent bilaterally. L3-L4: Central canal preserved, neural exit foramina are patent bilaterally. L4-L5: Central canal preserved, neural exit foramina are patent bilaterally. L5-S1: Central canal preserved, neural exit foramina are patent bilaterally. Procedure Note Presley Elena MD - 11/26/2019 EXAMINATION: CT LUMBAR SPINE WO CONTRAST EXAM DATE/TIME: 11/26/2019 6:58 PM CLINICAL HISTORY: Low back pain COMPARISON STUDIES: No previous available TECHNIQUE: Thin axial sections with sagittal and coronal reconstructions acquired through the lumbar spine. Radiation dose reduction technique was utilized. FINDINGS: FINDINGS: The lumbar vertebral bodies are well aligned with normal shape, size. The intervertebral disc spaces are preserved. . Incidental visualization of constipation. L1-L2: Central canal preserved, neural exit foramina are patent bilaterally. L2-L3: Central canal preserved, neural exit foramina are patent bilaterally. L3-L4: Central canal preserved, neural exit foramina are patent bilaterally. L4-L5: Central canal preserved, neural exit foramina are patent bilaterally. L5-S1: Central canal preserved, neural exit foramina are patent bilaterally. IMPRESSION 1.The sensitivity and specificity of the exam is severely limited due to patient body habitus, suboptimal gpekas-mn-heqhb ratio and the resolution of the CT scan. Recommend evaluation with MRI if disc herniation and/or nerve root impingement is clinically suspected. 2.Constipation, large amount of stool in the rectum with mild mucosal thickening of the rectum, early stercoral colitis a possibility. Sin Doty MD CT ORDERABLES * TROPONIN I (11/26/2019 6:49 PM DOPE MIXER) Troponin I 0.012 <=0.049 ng/mL 11/26/2019 7:23 PM DOPE MIXER [facility] Blood BLOOD SPECIMEN / Unknown Lab Venipuncture / Unknown 11/26/2019 6:49 PM DOPE MIXER 11/26/2019 6:54 PM DOPE MIXER Narrative [facility] - 11/26/2019 7:23 PM DOPE MIXER Note: Diagnosis of myocardial infarction requires symptoms of ischemia or EKG changes of ischemia and Troponin I >99th percentile of normal with <10% coefficient of variation (CV) (0.05 ng/mL) Troponin should be drawn on initial assessment and 3-6 hours later as clinically indicated. Any condition resulting in myocardial cell damage can increase cardiac troponin levels. In addition to myocardial infarction, these include but are not limited to congestive heart failure, arrhythmia, myocarditis, and non-cardiac related causes such as pulmonary embolism, renal failure and sepsis. Sin Doty MD LAB - CHEMISTRY ORDE RABLES Performing Organization Address [facility] Co de Phone Number [facility] [address] * D-DIMER (11/26/2019 6:49 PM DOPE MIXER) [facility] D-Dimer <0.27 <0.5 ug/mL FEU 11/26/2019 8:08 PM DOPE MIXER [facility] Blood BLOOD SPECIMEN / Unknown Lab Venipuncture / Unknown 11/26/2019 6:49 PM DOPE MIXER 11/26/2019 7:52 PM DOPE MIXER Narrative [facility] - 11/26/2019 8:08 PM DOPE MIXER Intended for use in conjunction with a clinical pretest probability (PTP) assessment model to exclude pulmonary embolism (PE) and deep venous thrombosis (DVT) in outpatients suspected of PE or DVT when the D-dimer level is inferior to a predefined cut-off. A D-dimer test should be used in conjunction with a well validated clinical score to safely exclude VTE in outpatients with a low or moderate clinical score. Patients with distal DVT may have a normal D-dimer level. In DIC the D-dimer level increases, therefore D-dimer assays can help in the diagnosis of DIC and in DIC patient management. Sin Doty MD LAB - COAGULATION OR DERABLES Performing Organization Address [facility] Co de Phone Number [facility] [address] * (ABNORMAL) EKG 12-LEAD (11/26/2019 6:37 PM DOPE MIXER) [facility] Ventricular Rate 110 BPM [facility] Atrial Rate 110 BPM [facility] P-R Interval 132 ms [facility] QRS Duration ms 102 ms [facility] Q-T Interval ms 364 ms [facility] QTC Calculation (Bezet) 492 ms [facility] Calculated P [place] 45 degrees [facility] M[facility] Calculated R [place] -35 degrees [facility] MUSE Calculated T [place] 12 degrees [facility] Interpretation EKG SINUS TACHYCARDIA LEFT AXIS DEVIATION CANNOT RULE OUT INFERIOR INFARCT , AGE UNDETERMINED POSSIBLE ANTERIOR INFARCT , AGE UNDETERMINED ABNORMAL ECG NO PREVIOUS ECGS AVAILABLE Confirmed by MAINE STONER MD ([id number]), commercial production editor COLT SHAW ([id number]) on 11/27/2019 11:52:26 AM [facility] 11/26/2019 6:37 PM DOPE MIXER 11/27/2019 11:52 AM DOPE MIXER Narrative Procedure Note Sin Doty MD - 11/26/2019 6:18 PM CST ED Events Date/Time Event User Comments 11/26/191813 First Provider Evaluation SIN DOTY Enedelia Danielson Cynthia [id number] [facility] EMERGENCY DEPARTMENT History Chief Complaint Patient presents with Pain Back 6:18 PM Enedelia Patlisa, a 43 year old female with a past medical historythat includes--HTN and sciatic pain--presents to the ER c/o constant,sharp, back pain that began 2 weeks ago. The pt mentions she has takenhydrocodone and prednisone from her PCP for the pain. The pt reports shesaw her PCP about this problem 2 weeks ago and had an xray scheduled butwas cancelled. The pt states she is now unable to see her PCP until afterthe 1st of the year. According to the pt, she is unable to sleep becauseof the pain. The pt notes bilateral shoulder pain and bilateral tinglingin her legs. The pt denies dysuria, history of back pain, and previousMRIs. PCP: LISANDRO Andrew Past Medical History: Diagnosis Date Hypercholesteremia Hypertension Hypothyroid Past Surgical History: Procedure Laterality Date BONE DENSITY Section Cholecystectomy COLONOSCOPY Cyst Removal ENDOMETRIAL ABLATION ERCP Femur Fracture Repair Hysterectomy Renal Biopsy Splenectomy Family History Problem Relation Age of Onset Cancer - Other Father Other - Cardiac Father Asthma Neg Hx Autoimmune Disease Neg Hx Bipolar Disorder Neg Hx Cancer - Breast Neg Hx Cancer - Colon Neg Hx Cancer - Ovarian Neg Hx Cancer - Pancreatic Neg Hx Cancer - Prostate Neg Hx Depression Neg Hx Eczema Neg Hx Hypertension Neg Hx Migraine Neg Hx Seizures Neg Hx Sudd. <30 Neg Hx Thyroid Disease Neg Hx Osteoporosis Neg Hx Ulcerative Colitis Neg Hx Social History Socioeconomic History Marital status: Single Spouse name: Not on file Number of children: Not on file Years of education: Not on file Highest education level: Not on file Occupational History Not on file Social Needs Financial resource strain: Not on file Food insecurity: Worry: Not on file Inability: Not on file Transportation needs: Medical: Not on file Non-medical: Not on file Tobacco Use Smoking status: Current Every Day Smoker Packs/day: 0.50 Years: 30.00 Pack years: 15.00 Types: Cigarettes Last attempt to quit: 03/23/2019 Years since quittin.6 Smokeless tobacco: Current User Tobacco comment: Vaping Substance and Sexual Activity Alcohol use: No Drug use: Never Sexual activity: Not on file Lifestyle Physical activity: Days per week: Not on file Minutes per session: Not on file Stress: Not on file Relationships Social connections: Talks on phone: Not on file Gets together: Not on file Attends anglican service: Not on file Active member of club or organization: Not on file Attends meetings of clubs or organizations: Not on file Relationship status: Not on file Intimate partner violence: Fear of current or ex partner: Not on file Emotionally abused: Not on file Physically abused: Not on file Forced sexual activity: Not on file Other Topics Concern Not on file Social History Narrative Not on file Review of Systems Review of Systems Constitutional: Negative for fever. Cardiovascular: Negative for chest pain. Genitourinary: Negative for dysuria. Musculoskeletal: Positive for back pain. +Shoulder pain bilaterally Skin: Negative for itching and rash. Neurological: Positive for tingling (legs bilaterally). All other systems reviewed and are negative. Physical Exam BP (!) 134/102 Pulse (!) 114 Temp 98.5 F (36.9 C) (Oral) Resp17 Ht 1.6 m (5' 3 ) Wt 130.6 kg (288 lb) SpO2 96% BMI 51.02kg/m Physical Exam Constitutional: She is oriented to person, place, and time. Non-toxicappearance. No distress. Eyes: Pupils are equal, round, and reactive to light. Cardiovascular: Normal rate, regular rhythm and normal heart sounds. Examreveals no gallop and no friction rub. No murmur heard. Good distal pulses. Pulmonary/Chest: Effort normal and breath sounds normal. Abdominal: Soft. She exhibits no distension and no pulsatile midline mass.There is no tenderness. There is no rebound, no guarding and no CVAtenderness. Musculoskeletal: Right shoulder: She exhibits pain (with movement). Left shoulder: She exhibits pain (with movement). Thoracic back: She exhibits tenderness. Lumbar back: She exhibits tenderness. No midline pain and no focal deficits of the spine. Neurological: She is alert and oriented to person, place, and time. Nosensory deficit. No numbness in buttocks. Skin: Skin is warm and dry. Good coloration. Psychiatric: She has a normal mood and affect. Medications Current Outpatient Medications Medication Sig Dispense Refill amLODIPine (NORVASC) 10 MG tablet Take 10 mg by mouth once daily 3 atorvastatin (LIPITOR) 80 MG tablet Take 40 mg by mouth once daily cyclobenzaprine (FLEXERIL) 10 MG tablet Take 1 tablet by mouth 3 timesdaily as needed for Muscle Spasms 60 tablet 0 ezetimibe (ZETIA) 10 MG tablet Take 1 tablet by mouth once daily 30tablet 0 HYDROcodone-acetaminophen (NORCO) 5-325 MG tablet Take 1 tablet by mouthevery 8 hours as needed for Pain 9 tablet 0 levothyroxine (SYNTHROID) 300 MCG tablet Take 1 tablet by mouth oncedaily 90 tablet 4 losartan-hydroCHLOROthiazide (HYZAAR) 100-25 MG tablet Take 1 tablet bymouth once daily metoprolol succinate XL 24hr (TOPROL XL) 50 MG tablet Take 1 tablet bymouth once daily 30 tablet 3 Procedures EKG 12-LEAD Date/Time: 11/26/2019 6:37 PM Performed by: Sin Doty MD Authorized by: Sin Doty MD ECG interpreted by ED Physician in the absence of a real estate coordinator: yes Interpretation: Interpretation: abnormal Rate: ECG rate: 110 ECG rate assessment: tachycardic Rhythm: Rhythm: sinus tachycardia Ectopy: Ectopy: none QRS: QRS axis: Left Comments: Cannot rule out inferior infarct, age undetermined. Possible anterior infarct, age undetermined. Lab Interpretation Oxygen Saturation Interpretation The oxygen saturation level is: 97%. The patient was on Room Air for thesaturation measurement. Measurement frequency: Spot Check. Oxygensaturation interpretation is Normal. Intervention(s) used: None. Hospital Encounter on 11/26/19 CBC W AUTO DIFFERENTIAL Result Value Ref Range WBC 9.5 4.0 - 10.0 x10E9/L RBC 3.74 (L) 3.93 - 5.22 x10E12/L Hemoglobin 12.6 11.2 - 15.7 gm/dL Hematocrit 37.8 34.1 - 44.9 % MCV 101.1 (H) 78.0 - 100.0 fl MCH 33.7 25.6 - 34.0 pg MCHC 33.3 32.3 - 36.5 gm/dL RDW 14.8 (H) 11.6 - 14.4 % MPV 9.6 9.4 - 12.4 fl Platelet Count 467 (H) 163 - 369 x10E9/L Neutrophils % 76.3 (H) 40.0 - 75.0 % Lymphocytes % 20.4 19.3 - 53.1 % Monocytes % 2.4 (L) 4.7 - 12.5 % Eosinophils % 0.0 (L) 0.7 - 7.0 % Basophils % 0.4 0.1 - 1.2 % Immature Granulocytes 0.5 0 - 0.5 % Neutrophil Absolute 7.23 (H) 1.56 - 6.13 x10E9/L Lymphocytes Absolute 1.93 1.18 - 3.74 x10E9/L Monocytes Absolute 0.23 (L) 0.24 - 0.86 x10E9/L Eosinophils Absolute 0.00 (L) 0.04 - 0.54 x10E9/L Basophils Absolute 0.04 0.01 - 0.08 x10E9/L Immature Granulocytes Absolute 0.05 (H) 0 - 0.03 x10E9/L nRBC Auto 0 <=0 /100 WBC nRBC Absolute 0.00 <=0 x10E9/L COMPREHENSIVE METABOLIC PANEL Result Value Ref Range Glucose 110 70 - 125 mg/dL Sodium 141 136 - 145 mmol/L Potassium 4.1 3.4 - 4.5 mmol/L Chloride 106 98 - 107 mmol/L CO2 23 22 - 29 mmol/L Calcium 9.6 8.4 - 10.2 mg/dL Anion Gap 16 10 - 20 mmol/L BUN 12.1 9.8 - 20.1 mg/dL Creatinine 0.77 0.57 - 1.11 mg/dL eGFR by MDRD >60 >60 mL/min/1.73m2 eGFR by MDRD >60 >60 mL/min/1.73m2 Alkaline Phosphatase 120 40 - 150 U/L ALT 32 5 - 55 U/L AST 25 5 - 34 U/L Protein Total 8.1 6.4 - 8.3 gm/dL Albumin 4.0 3.5 - 5.0 gm/dL Globulin Total 4.1 (H) 2.6 - 4.0 gm/dL Albumin/Globulin Ratio 1.0 0.9 - 1.6 Bilirubin Total 0.3 0.2 - 1.2 mg/dL ERYTHROCYTE SEDIMENTATION RATE Result Value Ref Range Erythrocyte Sedimentation Rate Westergren 55 (H) 0 - 20 mm/hr TROPONIN I Result Value Ref Range Troponin I 0.012 <=0.049 ng/mL D-DIMER Result Value Ref Range D-Dimer <0.27 <0.5 ug/mL FEU XR CHEST 1VW PORTABLE Final Result IMAGING STUDIES: XR CHEST 1VW PORTABLE EXAM DATE/TIME: 11/26/2019 7:11 PM COMPARISON STUDIES: No previous available CLINICAL HISTORY: Low back pain. FINDINGS AND IMPRESSION: 1.Mild cardiomegaly. Rotated exam. 2.Suboptimal inspiratory effort. No infiltrates. 3.No pleural effusion or pneumothorax. 4.No significant bony abnormalities. XR SHOULDER 2+ VW LEFT [id number] Final Result IMAGING STUDIES: XR SHOULDER LEFT 2VW OR MORE DATE: 11/26/2019 7:11 PM COMPARISON STUDIES: No previous available. CLINICAL HISTORY: Low back pain. FINDINGS AND IMPRESSION: 1.No conclusive evidence of acute fracture or dislocation. No destructive or lytic lesions. No radiopaque foreign bodies or abnormal soft tissue calcifications noted . XR SHOULDER 2+ VW RIGHT [id number] Final Result IMAGING STUDIES: XR SHOULDER RIGHT 2VW OR MORE DATE: 11/26/2019 7:10 PM COMPARISON STUDIES: No previous available. CLINICAL HISTORY: Low back pain. FINDINGS AND IMPRESSION: 1.No conclusive evidence of acute fracture or dislocation. No destructive or lytic lesions. No radiopaque foreign bodies or abnormal soft tissue calcifications noted . CT LUMBAR SPINE WO CONTRAST [id number] Final Result EXAMINATION: CT LUMBAR SPINE WO CONTRAST EXAM DATE/TIME: 11/26/2019 6:58 PM CLINICAL HISTORY: Low back pain COMPARISON STUDIES: No previous available TECHNIQUE: Thin axial sections with sagittal and coronal reconstructions acquired through the lumbar spine. Radiation dose reduction technique was utilized. FINDINGS: FINDINGS: The lumbar vertebral bodies are well aligned with normal shape, size. The intervertebral disc spaces are preserved. . Incidental visualization of constipation. L1-L2: Central canal preserved, neural exit foramina are patent bilaterally. L2-L3: Central canal preserved, neural exit foramina are patent bilaterally. L3-L4: Central canal preserved, neural exit foramina are patent bilaterally. L4-L5: Central canal preserved, neural exit foramina are patent bilaterally. L5-S1: Central canal preserved, neural exit foramina are patent bilaterally. IMPRESSION 1.The sensitivity and specificity of the exam is severely limited due to patient body habitus, suboptimal yudjxe-dx-hkiix ratio and the resolution of the CT scan. Recommend evaluation with MRI if disc herniation and/or nerve root impingement is clinically suspected. 2.Constipation, large amount of stool in the rectum with mild mucosal thickening of the rectum, early stercoral colitis a possibility. Progress Notes 6:18 PM The pt was evaluated for constant, sharp, back pain that began 2weeks ago. The pt mentions she has taken hydrocodone and prednisone fromher PCP for the pain. The pt reports she saw her PCP about this problem 2weeks ago and had an xray scheduled but was cancelled. The pt states sheis now unable to see her PCP until after the 1st of the year. According tothe pt, she is unable to sleep because of the pain. The pt notes bilateralshoulder pain and bilateral tingling in her legs. The pt denies dysuria,history of back pain, and previous MRIs. 6:35 PM While reviewing the pt's previous records, the pt has seen her PCPseveral times recently. The pt's last drug screen was positive foropiates. 8:14 PM The pt was reassessed at this time. The pt states she does notwant to stay for her repeat troponin and second EKG. The pt reports shewants narcotic pain medication. 8:27 PM I spoke with the pt about the amount of narcotic prescriptions inthe past 6 months. I advised the pt to get an MRI since the pain has beengoing on for a while. I recommended the pt stay for a cardiac workup, butthe pt insists she isn't having any cardiac symptoms. The pt denies chestpain and SOB. The pt continues to state she does not want to stay for acardiac workup, and she just wants pain medication. The pt's vitals arestable at this time. 8:32 PM: Rechecked pt: The patient understands the risks of refusal,which include the potential for permanent disability or possibly .The patient is A & O x 4, clearly understands the meaning of leaving here against medical advice , and in no way appears to be incompetent. I have reviewed the patient's medical history, problem list, homemedications, and allergies. ED Course Clinical Impressions as of Dec 01 820 Lumbar pain Chronic shoulder pain, unspecified laterality Drug-seeking behavior Medical Decision Making I have reviewed the: Nursing Notes, Vitals. I have interpreted the following results: Labs, X-Ray, CT Scans and OxygenSaturation. Orders Placed This Encounter CT LUMBAR SPINE WO CONTRAST 58616 XR SHOULDER 2+ VW RIGHT 70915 XR SHOULDER 2+ VW LEFT [id number] XR CHEST 1VW PORTABLE CBC W AUTO DIFFERENTIAL COMPREHENSIVE METABOLIC PANEL ERYTHROCYTE SEDIMENTATION RATE TROPONIN I D-DIMER CARDIAC EKG ORDER EKG 12-LEAD ketorolac (TORADOL) injection 30 mg orphenadrine (NORFLEX) injection 60 mg fentaNYL (PF) (SUBLIMAZE) injection 100 mcg HYDROcodone-acetaminophen (NORCO) 5-325 MG tablet Clinical impression Final diagnoses: Lumbar pain Chronic shoulder pain, unspecified laterality Drug-seeking behavior Disposition: Left Against Medical Advice By signing my name below, I, Caty Finley attest that this documentationhas been prepared under the direction and in the presence of Dr. Buffy MD. Electronically signed: Matthew Cornelius. 12/01/2019. 8:21 AM I, Dr. Sin Doty, personally performed the services described in thisdocumentation. All medical record entries made by the scribe were at mydirection and in my presence. I have reviewed the chart and agree that therecord reflects my personal performance and is accurate and complete. Dr.Maria Evelyn MD. 12/01/2019. 8:21 AM Follow-up Information Follow-up With Details Why Contact Info Meenu Cramer PA Call On Thursday for a follow up [id number] [facility] [phone] [address] Childers On the as planned User Date/Time Sin Doty MD Sat Nov 26, 2019 8:29 PM Sin Doty MD ECG ORDERABLES [facility] * (ABNORMAL) DRUG ABUSE URINE SCREEN 10 (11/17/2019 1:47 PM [facility]) Pathologist [facility] Amphetamines Screen Urine Negative Negative 11/17/2019 2:59 PM [facility] Barbiturates Screen Urine Negative Negative 11/17/2019 2:59 PM [facility] Benzodiazepines Screen Urine Negative Negative 11/17/2019 2:59 PM [facility] Cannabinoids Screen Urine Negative Negative 11/17/2019 2:59 PM [facility] Cocaine Screen Urine Negative Negative 11/17/2019 2:59 PM [facility] Methadone Screen Urine Negative Negative 11/17/2019 2:59 PM [facility] Opiate Screen Urine Positive(A) Negative 11/17/2019 2:59 PM [facility] Phencyclidine Screen Urine Negative Negative 11/17/2019 2:59 PM [facility] Tricyclics Screen Urine Positive(A) Negative 11/17/2019 2:59 PM [facility] Methamphetamine Screen Urine Negative Negative 11/17/2019 2:59 PM [facility] Buprenorphine Screen Urine Negative Negative 11/17/2019 2:59 PM [facility] Oxycodone Screen Urine Positive(A) Negative 11/17/2019 2:59 PM [facility] Propoxyphene Screen Urine Negative Negative 11/17/2019 2:59 PM [facility] Urine URINE / Unknown Collection / Unknown 11/17/2019 1:47 PM [facility] 11/17/2019 2:30 PM [facility] - 11/17/2019 2:59 PM [facility] This is a presumptive/unconfirmed test for medical treatment purposes only. Clinical consideration and professional judgment should be applied when using presumptive results. If confirmatory testing, such as gas chromatography-mass spectrometry (GC/MS), of any positive results of this test is required, please notify the laboratory within 7 days of collection. This test is intended only for monitoring or management of patients. It is not intended for use in job-related and/or legal-related purposes. The cutoff value for each analyte is: Barbiturates.....200 ng/mL Benzodiazepines......150 ng/mL Cocaine..........150 ng/mL Opiates..............100 ng/mL Phencyclidine.....25 ng/mL Tricyclics...........300 ng/mL Cannabinoid.......50 ng/mL Amphetamines.........500 ng/mL Methadone........200 ng/mL Methamphetamines.....500 ng/mL Buprenorphine.....10 ng/mL Oxycodone............100 ng/mL Propoxyphene.....300 ng/mL [facility] - URINE CHEMISTR Y ORDERABLES Performing Organization Address [facility] Co de Phone Number [facility] [address] * HOME SLEEP STUDY (11/16/2019 12:00 PM DOPE MIXER) 11/16/2019 12:0 0 PM DOPE MIXER Narrative Procedure Note Niyah Gonzalez MD - 11/18/2019 11:59 PM CST [facility] All Night Sleep Study/Polysomnography Patient:ENEDELIA MARIE Patient Type: CSN:[id number]/Age:01 1975 43 Stn/Rm/Bed: Sex/Race: Unit #:[id number] Adrs: Prim Phys: Attend Phys: City/St/Zip: , Admit Date:November 16, 2019Disch To: Disch Date: DATE OF SERVICE: 11/16/2019 Home sleep study. CODE: 780.53. INDICATIONS: The patient is a 43-year-old female who weighs 289 pounds,height is 5 feet 3 inches, and BMI is 51.1. Home sleep study was performed utilizing limited channels, and the resultsare as follows: Total duration of recording was 10 hours and 14 minutes. Apnea-hypopnea index was 2.5 and the lowest saturation of 80%. IMPRESSION AND RECOMMENDATION: There is no definite evidence for sleepapnea syndrome; however, there is nocturnal desaturation. This shouldfurther be evaluated by home nocturnal oxygen saturation study, which willbe arranged through my office; however, there is no indication for a CPAPtitration at this time. Niyah Gonzalez M.D., F.C.C.P. [place] Board Certified Sleep Medicine AR/MODL /[id number] cc: Niyah Gonzalez M.D., F.C.C.P. NIYAH GONZALEZ M.D., F.C.C.P.POLYSOMNOGRAPHY REPORT [facility] ORDERAB LES * LIPASE BLOOD (11/01/2019 12:47 PM DOPE MIXER) [facility] Signature Lipase 48 8 - 78 U/L 11/01/2019 5:45 PM DOPE MIXER [facility] Blood BLOOD SPECIMEN / Unknown Venipuncture / Unknown 11/01/2019 12:47 PM DOPE MIXER 11/01/2019 12:47 PM DOPE MIXER [facility] - CHEMISTRY VIANEY LAMB [facility] [address] * AMYLASE BLOOD (11/01/2019 12:47 PM DOPE MIXER) Amylase 76 25 - 125 U/L 11/01/2019 5:51 PM DOPE MIXER [facility] Blood BLOOD SPECIMEN / Unknown Venipuncture / Unknown 11/01/2019 12:47 PM DOPE MIXER 11/01/2019 12:47 PM DOPE MIXER [facility] - CHEMISTRY VIANEY LAMB Performing Organization Address [facility]/ZIP Co de Phone Number [facility] [address] * (ABNORMAL) TSH (11/01/2019 12:47 PM DOPE MIXER) Only the most recent of2 resultswithin the time period is included. TSH 130.040(H) 0.35 - 4.94 uIU/mL 11/02/2019 4:28 AM [facility] Blood BLOOD SPECIMEN / Unknown Venipuncture / Unknown 11/01/2019 12:47 PM DOPE MIXER 11/01/2019 12:47 PM DOPE MIXER [facility] - CHEMISTRY VIANEY DEANKENNEDY Performing Organization Address [facility] de Phone Number [facility] [address] * (ABNORMAL) LIPID PROFILE (11/01/2019 12:47 PM DOPE MIXER) Only the most recent of2 resultswithin the time period is included. Cholesterol 384(H) <200 mg/dL 11/01/2019 5:51 PM [facility] Triglycerides 358(H) <150 mg/dL 11/01/2019 5:51 PM [facility] HDL Cholesterol 49 >40 mg/dL 9 5:51 PM [facility] Chol HDL Ratio 7.8(H) 1.0 - 6.0 11/01/2019 5:51 PM [facility] LDL Calculated 263(H) 65 - 130 mg/dL 11/01/2019 5:51 PM [facility] VLDL Calculated 72(H) 10 - 40 mg/dL 11/01/2019 5:51 PM [facility] Blood BLOOD SPECIMEN / Unknown Venipuncture / Unknown 11/01/2019 12:47 PM DOPE MIXER 11/01/2019 12:47 PM DOPE MIXER Narrative [facility] - 11/01/2019 5:51 PM [facility] Lipid Profile Comment: CHOLESTEROL LEVEL..................CLINICAL INTERPRETATION LESS THAN 200 MG/DL..............................DESIRABLE 200-239 MG/DL..............................BORDERLINE HIGH GREATER THAN 240 MG/DL................................HIGH LDL-CHOLESTEROL LEVEL..............CLINICAL INTERPRETATION LESS THAN 100 MG/DL................................OPTIMAL 100-129 MG/DL.................................NEAR OPTIMAL GREATER THAN 160 MG/DL...........................HIGH RISK HDL RISK LEVEL GREATER THEN 60 MG/DL............................DECREASED 40-60 MG/DL........................................AVERAGE LESS THAN 40 MG/DL...............................INCREASED TRIGLYCERIDE LEVEL..................CLINICAL INTERPRETATION LESS THAN 150 MG/DL...............................DESIRABLE 150-199 MG/DL...............................BORDERLINE HIGH 200-499 MG/DL..........................................HIGH GREATER THAN 500..................................VERY HIGH THE NATIONAL CHOLESTEROL EDUCATION PROGRAM HAS SET THE ABOVE GUIDELINES (REFERANCE VALUES) FOR CHOLESTEROL AND HDL. RISK ASSOCIATED WITH CHOLESTEROL/HDL RATIOS RISK....................MALE RATIO.............FEMALE RATIO 1/2 AVERAGE.................<3.4.......................<3.3 LOW RISK.................... 4.0 ...................... 3.8 AVERAGE..................... 5.0 ...................... 4.5 2X AVERAGE.................. 9.5 ...................... 7.0 3X AVERAGE...................>23........................>11 Me[facility] - CHEMISTRY VIANEY LAMB Performing Organization Address City/State/[facility] Co de Phone Number [facility] [address] * LAB MISC TEST (04/13/2019 4:47 PM CDT) Only the most recent of2 resultswithin the time period is included. Test Name SEE SCANNED REPORT 04/20/2019 3:36 PM CDT [facility] REF LAB NON INTERF Blood BLOOD SPECIMEN / Unknown Lab Venipuncture / Unknown 04/13/2019 4:47 PM CDT 04/13/2019 5:13 PM CDT Jeancarlos Ríos MD LAB SEND OUT [facility] REF LAB NON INTERF [address] * XR KNEE LEFT 4VW OR MORE (04/13/2019 11:20 AM CDT) Anatomical Region Laterality Modality Lower Extremity Radiographic Isha ging 04/13/2019 11:5 2 AM CDT Impressions 04/13/2019 12:18 PM CDT IMPRESSION: No acute fracture or dislocation. Mild degenerative changes. Dictated by Arnoldo Montes DO (associate professor of radiology). Dr. CADEN Fonseca MD have personally reviewed and interpreted this examination/study. This report was electronically signed by CADEN MORALES MD on 04/13/2019 12:18 PM . Narrative 04/13/2019 12:18 PM CDT EXAMINATION: XR KNEE LEFT 4VW HISTORY: knee pain COMPARISON: None. FINDINGS: No acute fracture or dislocation is identified. Mild degenerative changes are noted in the knee without significant joint space narrowing, including subchondral cysts in the patella. No osseous erosion is identified. No knee effusion or significant soft tissue swelling is seen. Procedure Note aCden Morales MD - 04/13/2019 EXAMINATION: XR KNEE LEFT 4VW HISTORY: knee pain COMPARISON: None. FINDINGS: No acute fracture or dislocation is identified. Mild degenerativechanges are noted in the knee without significant joint space narrowing,including subchondral cysts in the patella. No osseous erosion is identified. No knee effusion or significant soft tissue swelling is seen. IMPRESSION: No acute fracture or dislocation. Mild degenerative changes. Dictated by Arnoldo Montes DO (associate professor of radiology). Dr. CADEN Fonseca MD have personally reviewed and interpreted this examination/study. This report was electronically signed by CADEN MORALES MD on04/13/2019 12:18 PM . Anne Marie Ramirez PA-C DIAGNOSTIC IMAG ING ORDERABLES * XR LUMBAR SPINE 2 OR 3VW (04/13/2019 11:19 AM CDT) Anatomical Region Laterality Modality Spine Radiographic Isha ging 04/13/2019 11:5 0 AM CDT Impressions 04/13/2019 12:18 PM CDT IMPRESSION: No acute fracture or subluxation. Very mild lower lumbar degenerative changes. Report dictated by Arnoldo Montes DO (associate professor of radiology). Dr. CADEN Fonseca MD have personally reviewed and interpreted this examination/study. This report was electronically signed by CADEN MORALES MD on 04/13/2019 12:18 PM . Narrative 04/13/2019 12:18 PM CDT EXAMINATION: XR LUMBAR SPINE 2 VW HISTORY: back pain COMPARISON: None. FINDINGS: The vertebral bodies are normally aligned. There is no acute fracture or compression deformity. The intervertebral disc spaces are maintained. Minimal degenerative changes are noted in the lower lumbar spine. The sacroiliac joints are normal. Surgical clips are noted in the right and left upper quadrants of the abdomen. Procedure Note Caden Morales MD - 04/13/2019 EXAMINATION: XR LUMBAR SPINE 2 VW HISTORY: back pain COMPARISON: None. FINDINGS: The vertebral bodies are normally aligned. There is no acute fracture or compression deformity. The intervertebral disc spaces are maintained. Minimal degenerative changes are noted in the lower lumbar spine. The sacroiliac joints are normal. Surgical clips are noted in the right and left upper quadrants of the abdomen. IMPRESSION: No acute fracture or subluxation. Very mild lower lumbar degenerative changes. Report dictated by Arnoldo Montes DO (associate professor of radiology). Dr. CADEN Fonseca MD have personally reviewed and interpreted this examination/study. This report was electronically signed by CADEN MORALES MD on04/13/2019 12:18 PM . Anne Marie Ramirez PA-C DIAGNOSTIC IMAG ING ORDERABLES * XR THORACIC SPINE 2VW (04/13/2019 10:50 AM CDT) Anatomical Region Laterality Modality Spine Radiographic Isha ging 04/13/2019 11:0 7 AM CDT Impressions 04/13/2019 11:22 AM CDT Impression: No acute fracture or subluxation of the thoracic spine. Mild degenerative changes. Report dictated by Arnoldo Montes DO (associate professor of radiology). Dr. CADEN Fonseca MD have personally reviewed and interpreted this examination/study. This report was electronically signed by CADEN MORALES MD on 04/13/2019 11:22 AM . Narrative 04/13/2019 11:22 AM CDT Exam: XR THORACIC SPINE 2VW Comparison: None. History: back pain Findings: No acute fracture, compression deformity, or subluxation is identified. The intervertebral disc spaces are maintained. Mild degenerative changes are noted. Surgical clips are noted in the left upper quadrant of the abdomen and in the midabdomen to the right of midline. Procedure Note Caden Morales MD - 04/13/2019 Exam: XR THORACIC SPINE 2VW Comparison: None. History: back pain Findings: No acute fracture, compression deformity, or subluxation is identified. The intervertebral disc spaces are maintained. Mild degenerative changes are noted. Surgical clips are noted in the left upper quadrant of the abdomen and in the midabdomen to the right of midline. Impression: No acute fracture or subluxation of the thoracic spine. Mild degenerative changes. Report dictated by Arnoldo Montes DO (associate professor of radiology). Dr. CADEN Fonseca MD have personally reviewed and interpreted this examination/study. This report was electronically signed by CADEN MORALES MD on04/13/2019 11:22 AM . Anne Marie Ramirez PA-C DIAGNOSTIC IMAG ING ORDERABLES * LAB HISTORICAL RESULTS-ONBASE (10/14/2017) Only the most recent of4 resultswithin the time period is included. 10/14/2017 Historical Provider LAB - CHEMISTRY O RDERABLES [facility] [address] * T4 FREE (01/28/2017 2:18 PM DOPE MIXER) T4 Free 1.0 0.7 - 1.5 ng/dL [facility] Blood specimen (specimen) BLOOD SPECIMEN / Unknown 01/28/2017 2:18 PM DOPE MIXER 01/28/2017 2:27 PM DOPE MIXER Shawn Galindo MD LAB - CHEMISTRY VIANEY Mendiola Organization Address City/State/ZIP Co de Phone Number [address] [phone] * US SOFT TISSUE HEAD NECK (08/05/2016 2:49 PM CDT) Anatomical Region Laterality Modality Head Other Impressions 08/05/2016 4:27 PM CDT IMPRESSION: Heterogenous thyroid gland, compatible with multinodular goiter, with a 1.4 cm hyperechoic right thyroid nodule. Fine-needle aspiration would be helpful for further evaluation. Dictated by Kota Oates MD (resident). This report was approved by Kota Oates on 08/05/2016 3:20 PM . I, Dr. LANETTE MOJICA M.D. have personally reviewed and interpreted this examination/study. This report was electronically signed by LANETTE MOJICA M.D. on 08/05/2016 4:27 PM . Narrative 08/05/2016 4:27 PM CDT EXAMINATION: Thyroid sonogram HISTORY: multinodular goiter, hypothyroid COMPARISON: No prior study is available for comparison. FINDINGS: Right thyroid lobe: 4.8 x 2.3 x 2.5 cm Left thyroid lobe: 4.9 x 2.1 x 2.3 cm Isthmus: 9 mm The thyroid gland is heterogenous and mildly enlarged. There is a hyperechoic lesion in the right thyroid lobe measuring 1.4 x 0.9 x 1.3 cm with internal vascularity. No discrete, suspicious nodule is seen in the left lobe of the thyroid gland. Procedure Note Lanette Mojica MD - 02/27/2018 EXAMINATION: Thyroid sonogram HISTORY: multinodular goiter, hypothyroid COMPARISON: No prior study is available for comparison. FINDINGS: Right thyroid lobe: 4.8 x 2.3 x 2.5 cm Left thyroid lobe: 4.9 x 2.1 x 2.3 cm Isthmus: 9 mm The thyroid gland is heterogenous and mildly enlarged. There is ahyperechoic lesion in the right thyroid lobe measuring 1.4 x 0.9 x 1.3 cmwith internal vascularity. No discrete, suspicious nodule is seen in theleft lobe of the thyroid gland. IMPRESSION IMPRESSION: Heterogenous thyroid gland, compatible with multinodular goiter, with a1.4 cm hyperechoic right thyroid nodule. Fine-needle aspiration would behelpful for further evaluation. Dictated by Kota Oates MD (resident). This report was approved by Kota Oates on 08/05/2016 3:20 PM . I, Dr. LANETTE MOJICA M.D. have personally reviewed and interpreted thisexamination/study. This report was electronically signed by LANETTE MOJICA M.D. on 08/05/20164:27 PM . Orestes Fuller MD US ORDERABLES * (ABNORMAL) TSH+FREE T4 PANEL (07/29/2016 1:35 PM CDT) TSH 7.890(H) 0.450 - 4.500 uIU/mL [facility] (BEAKER) T4 Free 1.17 0.82 - 1.77 ng/dL [facility] (BEAKER) 07/29/2016 1:35 PM CDT 07/29/2016 3:12 PM CDT Narrative [facility] (BEAKER) - 07/30/2016 7:13 AM CDT Performed at: [facility] [id number] Furnace Stock Inspector: Branden Domingo PhD, Phone: [phone] Orestes Fuller MD LAB - CHEMISTRY VIANEY LAMB [facility] (BEAKER) * (ABNORMAL) CBC W/O DIFFERENTIAL (07/29/2016 1:35 PM CDT) WBC 10.2 3.4 - 10.8 x10E3/uL [facility] (BEAKER) RBC 4.15 3.77 - 5.28 x10E6/uL [facility] ([facility]) Hemoglobin 14.3 11.1 - 15.9 g/dL [facility] ([facility]) Hematocrit 43.3 34.0 - 46.6 % [facility] ([facility]) MCV 104(H) 79 - 97 fL [facility] ([facility]) MCH 34.5(H) 26.6 - 33.0 pg [facility] ([facility]) MCHC 33.0 31.5 - 35.7 g/dL [facility] ([facility]) RDW-CV 14.9 12.3 - 15.4 % [facility] ([facility]) Platelet 554(H) 150 - 379 x10E3/uL [facility] ([facility]) Blood specimen (specimen) BLOOD SPECIMEN / Unknown 07/29/2016 1:35 PM CDT 07/29/2016 3:[address] [facility] - 07/30/2016 7:13 AM CDT Performed at: [address] [place] [id number] Furnace Stock Inspector: Branden Domingo PhD, Phone: [phone] Orestes Fuller MD LAB - HEMATOLOGY ORD KIRBY Performing Organization Address City/[facility] Co de Phone Number [facility] ([facility]) * (ABNORMAL) RETIC COUNT (03/31/2012 3:28 PM CDT) Only the most recent of4 resultswithin the time period is included. Reticulocyte % 0.3 0.3 - 2.0 % [facility] Comment:ALL CBC PARAMETERS H AVE BEEN CHECKED. Reticulocyte Absolute 0.01(L) 0.02 - 0.10 # [facility] Comment:ALL CBC PARAMETERS H AVE BEEN CHECKED. 03/31/2012 3:28 PM CDT 03/31/2012 3:51 PM CDT Jeacnarlos Ríos MD LAB - HEMATOLOGY O JAYLON Performing Organization Address City/[facility]/ZIP Co de Phone Number [address] [address], [place] [phone] * LAB MICROBIOLOGY - HPF HISTORICAL (03/10/2012 6:42 AM CDT) 03/10/2012 6:42 AM CDT [facility] - 03/10/2012 6:42 AM CDT Jesus Cruz MD LAB - MICROBIOLOGY O RDERABLES Performing Organization Address City/[facility]/ZIP Co de Phone Number [facility] [address] * CHROMOSOME ANALYSIS TISSUE PANEL (03/09/2012 12:00 AM CDT) Chromosome Analysis Solid Tiss See Scanned Report [facility] Comment Cytogenetics See Scanned Report [facility] TISSUE SPECIMEN / Unknown 03/09/2012 [facility] LAB - PATHOLOGY/CYTO LOGY ORDERABLES Performing Organization Address City/[facility]/ZIP Co de Phone Number [facility] [address] [place] [address] * PATHOLOGY REPORTS - HPF HISTORICAL (02/22/2012 11:50 AM CDT) 02/22/2012 11:5 0 AM CDT [facility] - 02/22/2012 11:50 AM CDT Catrina Elliott MD LAB - PATHOLOGY/CYTO LOGY ORDERABLES Performing Organization Address [facility]/ZIP Co de Phone Number [facility] [address] [place] [address] * PATHOLOGY/GENETICS HISTORICAL-ONBASE (02/04/2012) Only the most recent of2 resultswithin the time period is included. 02/04/2012 Historical Provider LAB - CHEMISTRY O RDERABLES Performing Organization Address City/[facility]/ZIP Co de Phone Number [facility] [address] * CHROMOSOME ANALYSIS BONE MARROW PANEL (01/08/2012 12:00 AM DOPE MIXER) Chromosome Analysis Bone Marrow See Scanned Report [facility] Comment Cytogenetics See Scanned Report [facility] BONE MARROW SPECIMEN / Unknown 01/08/2012 01/09/2012 3:40 PM DOPE MIXER [facility] LAB - PATHOLOGY/CYTO LOGY ORDERABLES [facility] [address] [place] [address] * HAPTOGLOBIN (01/05/2012 2:18 PM DOPE MIXER) Only the most recent of2 resultswithin the time period is included. Haptoglobin 76 30 - 200 mg/dL [facility] 01/05/2012 2:18 PM DOPE MIXER 01/05/2012 2:24 PM DOPE MIXER Jeancarlos Ríos MD LAB - CHEMISTRY OR DERABLES Performing Organization Address [facility] Co de Phone Number [address] [phone] * (ABNORMAL) LAMBDA LIGHT CHAINS FREE (12/17/2011 1:00 PM DOPE MIXER) Immunoglobulin Lambda Free Light Chain 32.4(H) 5.7 - 26.3 mg/L [facility] 12/17/2011 1:00 PM DOPE MIXER 12/17/2011 1:52 PM DOPE MIXER Jeancarlos Ríos MD LAB - CHEMISTRY OR DERABLES Performing Organization Address [facility] Co de Phone Number [address] [phone] * (ABNORMAL) PROTEIN ELECTROPHORESIS WO INTERP BLOOD (12/17/2011 1:00 PM DOPE MIXER) Interpretation Serum Protein SEE NOTE [facility] Comment: Serum protein electrophoresis shows characteristic bands corresponding to albumin, alpha and beta globulins and polyclonal immunoglobulins. No monoclonal immunoglobulins detected. Non-secretory myeloma (NSM) and light chain only myeloma cannot be excluded on the basis of this result. Recommend serum free light chain measurements for complete evaluation of multiple myeloma. Measurement of serum free kappa and lambda immunoglobulin light chains can identify all patients with light chain only myeloma and up to 70% of patients with NSM. The serum free light chain measurement can be performed using this specimen by calling the Special Chemistry Laboratory at [phone]. Mary Ann Wu, Ph.D. Protein Total 5.5(L) 6.0 - 8.3 G/DL [facility] Albumin 3.4 3.3 - 5.6 G/DL [facility] Alpha-1 Globulins 0.3 0.1 - 0.3 G/DL [facility] Alpha-2 Globulins 0.5 0.5 - 1.0 G/DL [facility] Beta Globulins 0.5(L) 0.6 - 1.1 G/DL [facility] Gamma Globulins 0.8 0.6 - 1.6 G/DL [facility] 12/17/2011 1:00 PM DOPE MIXER 12/17/2011 1:52 PM DOPE MIXER Jeancarlos Ríos MD LAB - CHEMISTRY OR DERABLES Performing Organization Address [facility] de Phone Number [address] [phone] * IMMUNOFIXATION (12/17/2011 1:00 PM DOPE MIXER) Pathologist [facility] Immunofixation Result SEE NOTE [facility] Comment: 1. Serum immunofixation electrophoresis shows polyclonal IgG, IgA and IgM immunoglobulins. 2. No monoclonal immunoglobulins detected. Non-secretory myeloma (NSM) cannot be excluded on the basis of this result. Measurements of serum free kappa and lambda immunoglobulin light chains can identify up to 70% of patients with NSM. Mary Ann Wu, Ph.D. 12/17/2011 1:00 PM DOPE MIXER 12/17/2011 1:52 PM DOPE MIXER Jeancarlos Ríos MD LAB - CHEMISTRY OR DERABLES Performing Organization Address [facility] Co de Phone Number [address] [phone] * (ABNORMAL) TRANSFERRIN (12/17/2011 11:17 AM DOPE MIXER) Transferrin 186(L) 210 - 370 MG/DL [facility] Transferrin Saturation % 25 16 - 50 % [facility] 12/17/2011 11:1 7 AM DOPE MIXER 12/17/2011 11:26 AM DOPE MIXER Jeancarlos Ríos MD LAB - CHEMISTRY OR DERABLES Performing Organization Address [facility] Co de Phone Number [address] [phone] * IRON BLOOD (12/17/2011 11:17 AM DOPE MIXER) Iron 58 40 - 150 MCG/DL [facility] 12/17/2011 11:1 7 AM DOPE MIXER 12/17/2011 11:26 AM DOPE MIXER Jeancarlos Ríos MD LAB - CHEMISTRY OR DERABLES Performing Organization Address [facility] Co de Phone Number [address] [phone] * FOLATE (12/17/2011 11:17 AM DOPE MIXER) Folate 5.7 4.0 - 40.0 ng/mL [facility] Comment: In patients with clinical evidence of folate deficiency (eg: Megaloblastic Anemia), serum folate concentrations generally range from 0.0 - 3.1 ng/ml. NOTE Hemolysis significantly increases folate values due to the high folate concentration in red blood cells. The drugs methotrexate and leucovorin interfere with folate measurement due to cross-reaction with folate binding proteins. 12/17/2011 11:1 7 AM DOPE MIXER 12/17/2011 11:25 AM DOPE MIXER Jeancarlos Ríos MD LAB - CHEMISTRY OR DERABLES Performing Organization Address [facility] Co de Phone Number [address] [phone] * FERRITIN (12/17/2011 11:17 AM DOPE MIXER) Ferritin 152 10 - 291 ng/mL [facility] 12/17/2011 11:1 7 AM DOPE MIXER 12/17/2011 11:26 AM DOPE MIXER Jeancarlos Ríos MD LAB - CHEMISTRY OR DERABLES [address] [phone] Care Teams Wood Furniture Assembler Relationship Specialty Start Date End Date None, Physician [address] [place] [address] PCP - General 09/24/23 Champ Guadarrama MD [address] [place] [id number] Gastroenterology 07/30/22
[2025-02-08 13:26] LABS: Basophils Absolute Auto 0.1 K/mm3 (0.0-0.1); Basophils Percent Auto 0.7 % (0.2-1.2); Eosinophils Absolute Auto 0.3 K/mm3 (0-0.3); Eosinophils Percent Auto 2.1 % (0-4.4); Hematocrit 43.9 % (37.0-47.0); Hemoglobin 12.8 g/dL (12.0-15.0); Immature Granulocyte Absolute 0.05 K/mm3 (0.00-0.031); Immature Granulocyte Percent A 0.4 % (0-0.5); Lymphocytes Absolute Auto 4.15 K/mm3 (0.9-3.2); Lymphocytes Percent Auto 34.1 % (18.3-44.2); Mean Corpuscular HGB Conc 29.2 g/dl (32-36); Mean Corpuscular Hemoglobin 25.8 pg (26-34); Mean Corpuscular Volume 88.3 fl (80-100); Mean Platelet Volume 11.8 fl (7.4-10.4); Monocytes Absolute Auto 0.8 K/mm3 (0.1-0.6); Monocytes Percent Auto 6.7 % (2.6-8.5); Neutrophils Absolute Auto 6.8 K/mm3 (1.3-6.7); Nucleated Red Blood Cells Perc 0.3 % (0.0-0.2); Platelet Count Result 431 k/mm3 (150-375); Red Blood Count 4.97 M/mm3 (4.2-5.4); Red Cell Distribution Width 19.4 % (11.5-14.5); White Blood Count 12.2 K/mm3 (4.5-10.0)
[2025-02-08 13:45] LABS: Alanine Aminotransferase 44 U/L (6-35); Albumin Level 4.1 g/dL (3.5-5.1); Alkaline Phosphatase 174 U/L (38-126); Anion Gap 10 mmol/L (4-12); Aspartate Amino Transferase 70 U/L (14-36); Bilirubin,Total 0.3 mg/dL (0.2-1.3); Blood Urea Nitrogen 13 mg/dL (7-17); Calcium 8.9 mg/dL (8.4-10.2); Carbon Dioxide 29 mmol/L (22-30); Chloride 103 mmol/L (98-107); Cholesterol 165 mg/dL (0-200); Estimated Glomerular Filt Rate > 60; Glucose 84 mg/dL (65-110); HDL Direct 34 mg/dL; Potassium 3.7 mmol/L (3.4-5.0); Sodium 142 mmol/L (137-145); Triglycerides 325 mg/dL (<150)
[2025-02-08 13:56] LABS: LDL Cholesterol Direct 71 mg/dL
[2025-02-08 13:59] LABS: Anisocytosis 1+; Hypochromasia 1+; Platelet Estimate Slightly Increased (Adequate); Schistocytes None Seen
[2025-02-08 14:01] LABS: Acanthocytes 1+
[2025-02-08 15:28] LABS: Iron 33 ug/dL (37-170)
[2025-02-08 15:39] LABS: Percent Iron Saturation 6 % (20-50)
== END 2025-02-08 09:28 | disposition home or self-care (01) ==
LOC: ANHGOSHLAB 09:28
PROVIDERS: PCP Nurse Practitioner Family; Visit Provider Nurse Practitioner Family
DX: E11.622 Type 2 diabetes mellitus with other skin ulcer (principal); E03.9 Hypothyroidism, unspecified; I10 Essential (primary) hypertension; D64.9 Anemia, unspecified
CPT/HCPCS: 36415; 80053; 80061; 82728; 83036; 83540; 83550; 84443; 85025

== ENCOUNTER 2025-09-22 19:39 | Emergency (ER) | payer OTHER, SELFPAY ==
--- NOTE | ~2025-09-22 | XR_ITS ---
XR knee LT min 4V INDICATION: LT medial knee pain/injury, twisted 2 hours ago . COMPARISON: None. FINDINGS: Frontal, lateral and oblique views of the left knee demonstrate no acute fracture or dislocation. Degenerative changes with joint space narrowing and marginal osteophytes are noted. IMPRESSION: Radiographic examination of the left knee demonstrates no acute fracture or dislocation. Reviewed, dictated and finalized at location S. IMPRESSION: Radiographic examination of the left knee demonstrates no acute fracture or dis location.
--- NOTE | ~2025-09-22 | XR_ITS ---
XR ankle LT min 3V INDICATION: LT lat ankle pain, twisted 2 hours ago . COMPARISON: None. FINDINGS: Frontal, lateral and oblique views of the left ankle demonstrate no acute fracture or dislocation. The ankle mortise is intact. Degenerative spurs are noted. IMPRESSION: No acute fracture or dislocation. Reviewed, dictated and finalized at location S.
--- NOTE | 2025-09-22 19:50 | ED.LOWEXIN ---
HPI - Extremity Injury (Lower) General Chief Complaint: Extremity Injury, Lower Stated Complaint: left knee and ankle injury Time Seen by Provider: 09/22/25 19:40 Source: patient Mode of arrival: ambulatory Limitations: no limitations History of Present Illness HPI Narrative: Enedelia is a 49-year-old female patient presenting to the clinic today with complaints of left knee and left ankle pain after twisting her left ankle and hurting the left knee. States she did not fall. States she was going up her stairs when she twisted her ankle. Has applied ice, heat, and taken ibuprofen. Rates pain 07/09 currently Related Data Home Medications ?Medication ?Instructions ?Recorded ?Confirmed ?Last Taken ?Type aspirin 81 mg tablet,delayed 81 mg PO DAILY 11/13/23 08/29/25 Unknown History release (Adult Low Dose Aspirin) ferrous sulfate 325 mg (65 mg 325 mg PO DAILY 02/10/25 08/29/25 Unknown History iron) tablet Allergies Allergy/AdvReac Type Severity Reaction Status Date / Time cephalexin AdvReac Mild Vomiting Verified 09/22/25 19:43 Review of Systems Review of Systems: Pertinent positives per HPI. Patient denies any fever, chills, rash, headache, visual changes, dizziness, cough, runny nose, sore throat, shortness of breath, chest pain, palpitations, nausea, vomiting, diarrhea, constipation, abdominal pain, or any urinary issues. [facility] Past Medical History Medical History Internal hemorrhoid Tubular adenoma of colon Family hx of colon cancer Internal hemorrhoid, bleeding Skin tags, anus or rectum History of blood transfusion Pre-diabetes Sjogrens syndrome Neuropathy Pilonidal cyst with abscess Open right femoral fracture ORIF Rheumatoid arthritis Hypertension Arthritis Hypothyroidism Surgical History Surgical History History of dental surgery History of ERCP History of liver biopsy Previous section H/O dilation and curettage Hx of cholecystectomy H/O splenectomy History of hysterectomy Family History Family History Father Hypertension Sibling Hypertension Heart disease Grandparent Cerebrovascular accident Arthritis Alzheimers disease Other Carcinoma of colon Social History Social History (Reviewed 09/22/25 @ 20:15 by NINFA Coleman Smoking packs per day: 0.50 Smoking cigarettes per day: 10.0 Years smoked: 16 Smoking pack-years: 8.00 Smoking status: Current every day smoker Tobacco type: cigarettes Alcohol intake: never Substance use: never Substance use type: does not use Do You Feel Safe in your Home?: Yes Lack of Transportation: No Lack of Food: Never True Current Housing: I Have Housing Concerned About Future Housing: No Difficulty Paying Gas/Electric Bills: No Difficulty Paying for Meds: No Currently Unemployed: YES Education: High School Diploma/GED Difficulty w/ Childcare or Family Care: No Living arrangements: with family Gender identity (if verbalized by the patient): Female Spiritual care concerns: No Comments At the time of my signature, I reviewed and agree with the nursing past medical, surgical, social, and family history. There is no relevant family history pertinent to the patient complaint. Exam Narrative: General: Well-developed, morbidly obese, in no apparent distress Head: Normocephalic, atraumatic. Cardio: Regular rate and rhythm, s1 and s2 normal, no murmur appreciated. Resp: Clear to auscultation bilaterally, no rhonchi, rales, wheezing or rubs. Musculoskeletal: No deformity, no swelling or bruising noted, tender to palpation over the left medial and anterior knee joint, tender to palpation over the left lateral ankle, limited range of motion with flexion extension of the left knee due to pain, full grossly normal range of motion of the left ankle, no palpable crepitus, muscle strength strong and equal, peripheral pulse strong, no edema, no cyanosis, walking with a wheeled walker. Course Course Emergency Course: Portions of this record may have been created with voice recognition software. Level of Care: Express Care Visit Vital Signs Vital signs: Vital signs reviewed MDM - Extremity Injury (Lower) MDM Narrative Medical decision making narrative: At the time of visit patient is resting comfortably on the exam table. Patient appears to be nontoxic. complaints of left knee and left ankle pain after twisting her left ankle and hurting the left knee. States she did not fall. States she was going up her stairs when she twisted her ankle. Has applied ice, heat, and taken ibuprofen. Rates pain 8/10 currently. X-ray of the left knee and left ankle were ordered. On exam patient has no deformity, no swelling or bruising noted, tender to palpation over the left medial and anterior knee joint, tender to palpation over the left lateral ankle, limited range of motion with flexion extension of the left knee due to pain, full grossly normal range of motion of the left ankle, no palpable crepitus, Diagnostics: X-rays of the left ankle and left knee were performed and were negative for any sign of fracture or malalignment. Plan: I suspect patient has a left knee MCL sprain and a left ankle sprain. Wiley wrap was applied to the ankle. Recommend wearing a hinged knee brace when up ambulating, may wear Wiley wrap to the left knee when resting. Apply ice pack to the affected area and may continue Tylenol/Motrin as needed for pain. Supportive measures were discussed with the patient and they voiced understanding discharge instructions and agrees to treatment plan. Return precautions reviewed Differential Diagnosis Differential diagnosis: Likely ankle sprain and strain, acute internal derangement of knee, ankle fracture and other (Knee sprain, tibia fracture, femur fracture, patella fracture, knee effusion) Imaging Data Radiologist's impression: ITS Impressions Knee X-Ray 09/22/25 20:01 IMPRESSION: Radiographic examination of the left knee demonstrates no acute fracture or dislocation. Ankle X-Ray 09/22/25 20:07 IMPRESSION: No acute fracture or dislocation. Discharge Plan Discharge Clinical Impression: MCL sprain of left knee Qualifiers: Encounter type: initial encounter Qualified Code(s): S83.412A - Sprain of medial collateral ligament of left knee, initial encounter Left ankle sprain Qualifiers: Encounter type: initial encounter Involved ligament of ankle: unspecified ligament Qualified Code(s): S93.402A - Sprain of unspecified ligament of left ankle, initial encounter Patient Disposition: Home Condition: Stable Instructions: Antibiotic Form, Ankle Sprain (ED), Knee Sprain (ED), Hinged Knee Brace (ED) Additional Instructions: Rest, ice, elevate, and wear wiley wrap as directed May wear hinged knee brace when up walking/bearing weight May continue to use wheeled walker as needed Tylenol/motrin for pain as discussed. Gradually bear weight Follow up with your PCP if symptoms persist more than 1 week. May need further imaging such as CT or MRI Patient Language: Estonian Prescriptions: No Action aspirin [Adult Low Dose Aspirin] 81 mg tablet,delayed release (DR/EC) 81 mg PO DAILY bupropion HCl 300 mg tablet extended release 24 hr 300 mg PO QAM Qty: 90 1RF levothyroxine 75 mcg tablet 75 mcg PO DAILY Qty: 90 3RF Rx Instructions: take with the 200mcg tablets for a total of 275mcg celecoxib [Celebrex] 100 mg capsule 100 mg PO BID Qty: 60 2RF hydrocodone-acetaminophen 10-325 mg tablet 1 tablet PO Q6H PRN (Reason: pain) Qty: 120 0RF ferrous sulfate 325 mg (65 mg iron) tablet 325 mg PO DAILY levothyroxine 200 mcg tablet 200 mcg PO DAILY Qty: 90 1RF Rx Instructions: take daily with the 75mcg tablets for a total of 275mcg quetiapine [Seroquel] 50 mg tablet 50 mg PO QHS Qty: 90 3RF Rx Instructions: take with the 400mg to equal 450 mg. quetiapine [Seroquel] 400 mg tablet 400 mg PO QHS Qty: 90 3RF Rx Instructions: take with the 50mg to equal 450 mg. temazepam 22.5 mg capsule 22.5 mg PO QHS PRN (Reason: sleep) Qty: 90 1RF atorvastatin 40 mg tablet See Rx Instructions .ROUTE .COMPLEX Qty: 90 1RF Dose Instruction: TAKE 1 TABLET BY MOUTH DAILY Rx Instructions: TAKE 1 TABLET BY MOUTH DAILY Rybelsus 14 mg tablet 14 mg PO DAILY Qty: 90 1RF propranolol [Inderal LA] 80 mg capsule,extended release 24 hr 80 mg PO DAILY Qty: 90 2RF tramadol 50 mg tablet See Rx Instructions .ROUTE .COMPLEX Qty: 240 2RF Rx Instructions: take 3 tablets by mouth every monring, 2 tablets in the afternoon, and 3 tablets at bedtime.; gabapentin 600 mg tablet 1,200 mg PO TID Qty: 180 3RF oxycodone 10 mg tablet 10 mg PO Q8H PRN (Reason: pain) Qty: 20 0RF [id number] [id number] mg capsule 1 cap PO Q4H PRN (Reason: pain) Qty: 45 4RF Follow-up/Referrals: Marce Byrd, LEAD TECHNICAL ARCHITECT, ACTUARIAL CLERK-C [Primary Care Provider, Family Practice] Time of Disposition: 20:15 Quality NIHSS Nursing Documentation ED NIHSS nursing documentation: reviewed/agree
[2025-09-22 19:58] VITALS: BP 143/90; PULSE 86; RESP 20; TEMP 36.8; O2SAT 98
== END 2025-09-22 20:20 | disposition home or self-care (01) ==
PROVIDERS: Emergency Provider Nurse Practitioner Family; PCP Nurse Practitioner Family
DX: S83.412A Sprain of medial collateral ligament of left knee, initial encounter (principal); S93.402A Sprain of unspecified ligament of left ankle, initial encounter; E03.9 Hypothyroidism, unspecified; I10 Essential (primary) hypertension; F17.210 Nicotine dependence, cigarettes, uncomplicated; X50.0XXA Overexertion from strenuous movement or load, initial encounter
CPT/HCPCS: 73564; 73610; 99214; G0463